=== PATIENT | male | born 1935 | race Caucasian/White ===

== ENCOUNTER → 2018-02-09 10:57 | Outpatient (BNVA) | payer MEDICARE, SELFPAY | PROVIDERS: PCP Emergency Medicine; Visit Provider Orthopaedic Surgery | DX: M17.11 Unilateral primary osteoarthritis, right knee (principal) | CPT/HCPCS: 20610; 99211; 99213; J1040 ==

== ENCOUNTER 2018-02-17 11:07 | Inpatient (IN) | payer MEDICARE, SELFPAY ==
[2018-02-17] VITALS (35 sets, daily range): BP systolic 91–132; BP diastolic 50–67; PULSE 50–96; RESP 2–32; TEMP 36.2–38.1; O2SAT 89–94
--- NOTE | 2018-02-17 11:37 | W.ED.GENAD ---
Discharge Plan Disposition Patient Disposition: [facility] INPATIENT Condition: Poor Discharge Details Chief Complaint: SOB Clinical Impression: Pneumonia, Hypoxia Reason For Visit: SEPSIS DUE TO CAP, LACTIC ACIDOSIS Admit Date/Time: 02/17/18 15:07 Admit Provider: Deann Lindsay Attending Provider: Deann Lindsay Primary Care Provider: nEzo Sparks ED Provider: Mary Arnold Discharge Data Discharge Date/Time-TO BE ENTERED AT DEPARTURE: 02/17/18 16:39 Medical Decision Making Patient is a 82-year-old male presenting today with chief complaint of cough and shortness of breath. Patient has history of NM with stent placement. He is not currently anticoagulated. History also significant for hypertension, hyperlipidemia, diabetes. Reports that he is been ill for the past 2 weeks. Endorses cough, particularly after laying supine. States that whenever he goes from a laying to a standing position he begins bringing up green sputum. Denies any fevers. Was seen by his primary care who placed him on antibiotics, patient is unclear as to what antibiotic he was on recently. Is not any antibiotics currently. Denies any chest pain. Reports he feels short of breath but this is typically only with coughing. Feels that I am breathing deeper at baseline does not feel short of breath at baseline. Denies any GI upset. No nausea, vomiting or diarrhea. Endorses a large amount of congestion. No sinus pain. Denies any ear pain. Denies any pain radiating to his back. On exam, she sounds wheezy and has crackles in the left lower lobe. Patient is noted to be tachycardic at 96, pulse is 93% on room air. Patient is afebrile. Plan to obtain a cardiac evaluation, chest x-ray. Will obtain a d-dimer as patient is having coughing and short of breath and is known to be tachycardic and hypoxic. Nursing staff found the antibiotic patient was on was amoxicillin. EKG was reviewed by Dr. Montague. Unchanged from previous. No ischemic changes noted Laboratory evaluation noted for elevated lactate of 2.8. Patient is currently receiving IV hydration. White count is over 28 with left shift. Potassium is low at 3.1, we replenish this at this time. Creatinine is 1.4 with a GFR of 46. D-dimer is 870. This is over the age adjusted limit for the patient. I discussed with him the risk/benefits of CT for PE protocol, particularly with his kidney function. Patient wished to move forward with imaging. We will continue to hydrate the patient while here Patient received 40 mg of p.o. potassium Chest x-ray reviewed by myself, notable for consolidation on the lateral view CT reviewed by radiologist. She contacted the department and advised that no pulmonary embolism was noted. However, patient is noted to have bilateral lower lobe pneumonia. 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 She recommended MRI versus biopsy. Advised that this appears simple. This may be followed up with primary care Patient is oxygen is now 88%. Nursing staff placed the patient on 2 L. Plan for admission. Will obtain blood cultures and begin the patient on ceftriaxone and azithromycin IV Consulted with hospitalist who agrees to admission for hypoxia and pneumonia. I did advise on the patient incidental finding which she will have the patient follow-up with at the time of discharge. This plan with the patient who is in agreement HPI General Mode of arrival: ambulatory. Date/Time Provider Initiated Documentation: 02/17/18 11:16. Limitations to Documentation: no limitations. Information obtained by: patient. History of Present Illness 82 year old M presents to the emergency department with the chief complaint of cough, described as moderate (patient denies any pain), Patient started experiencing this week(s) (2) and it has been constant. No relieving factors improve symptom(s), Movement worsens symptoms (coughing worse with exacerbation) . Patient notes fever/chills (has had chills at home) and shortness of breath (associates with cough); denies chest pain, cough, diaphoresis, headaches, loss of appetite, nausea/vomiting, rash and syncope. Patient did receive the following treatments prior to arrival, other (course of antibiotics) Related Data Home Medications Medication Instructions Recorded Confirmed acetaminophen [Tylenol Arthritis] 1 tab PO .4 OR 5 TIMES A DAY PRN 09/02/12 02/17/18 tab-cap aspirin [Ecotrin] 325 mg PO .QOD HS tab-cap 09/02/12 02/17/18 cranberry fruit concentrate 450 mg PO DAILY 09/02/12 02/17/18 garlic 1 cap PO DAILY 09/02/12 02/17/18 molmzyvekkm-qapqmtkmx-thq C-Mn 1 tab PO DAILY 09/02/12 02/17/18 triamcinolone acetonide 1 pedro pablo TOPICAL BID PRN #3 script 09/02/12 02/17/18 blood sugar diagnostic [Onetouch #100 strip 01/20/17 02/17/18 Ultra Test Strips] losartan-hydrochlorothiazide 1 tab-cap PO DAILY #90 tab-cap 04/21/17 02/17/18 [Hyzaar 100-25 Tablet] vitamin D40-baxzc acid 1 ea PO DAILY #90 tab 10/21/17 02/17/18 cetirizine 10 mg tablet 10 mg PO DAILY PRN tab-cap 01/06/18 02/17/18 metformin 1,000 mg tablet 1,000 mg PO BID tab-cap 01/06/18 02/17/18 pseudoephedrine-guaifenesin ER 120 1 tab PO PRN PRN tab 01/06/18 02/17/18 mg-1,200 mg tab,extend release 12hr atorvastatin 20 mg tablet 20 mg PO DAILY 01/08/18 02/17/18 metoprolol succinate ER 100 mg 100 mg PO HS dose pk 01/08/18 02/17/18 capsule sprinkle, ext. release 24 hr Previous Rx's Medication Instructions Recorded blood sugar diagnostic [Onetouch #100 strip 01/20/17 Ultra Test Strips] losartan-hydrochlorothiazide 1 tab-cap PO DAILY #90 tab-cap 04/21/17 [Hyzaar 100-25 Tablet] vitamin Y10-vaayi acid 1 ea PO DAILY #90 tab 10/21/17 Allergies Allergy/AdvReac Type Severity Reaction Status Date / Time Sulfa (Sulfonamide Allergy Intermediate SKIN RASH Verified 02/17/18 11:17 Antibiotics) miconazole Allergy Mild RASH Verified 02/17/18 11:17 bacitracin Allergy Unknown SKIN RASH Verified 02/17/18 11:17 gramicidin D Allergy Unknown SKIN RASH Verified 02/17/18 11:17 neomycin Allergy Unknown SKIN RASH Verified 02/17/18 11:17 polymyxin B Allergy Unknown SKIN RASH Verified 02/17/18 11:17 General Stated Complaint: SOB TANYA: 3 Review of Systems Constitutional Reports as per HPI Eyes Denies eye discharge ENT Denies dizziness, Denies otalgia, Denies lip swelling, Denies epistaxis, Reports nasal congestion, Reports nasal discharge, Reports post nasal drip, Denies sinus pain, Denies sinus pressure and Reports sore throat Cardiovascular Denies chest pain, Denies palpitations and Reports dyspnea (associates with cough) Respiratory Reports as per HPI, Reports chest congestion, Reports cough, Denies pain on inspiration, Denies pain with cough, Reports dyspnea (associates with cough), Denies stridor and Denies wheezing Gastrointestinal Denies abdominal pain, Denies nausea and Denies vomiting Integumentary/Breasts Denies rash Neurologic Denies dizziness Endocrine Denies palpitations Allergic/Immunologic Denies lip swelling and Denies wheezing [facility] Social History Smoking/Tobacco Use Status: Former Tobacco Use Surgical History Appendectomy Colonoscopy - MAC Fracture, Open Treatment MASTOID INCISION 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) Exam Const General: cooperative, healthy appearing, comfortable, no acute distress, well developed and well groomed Nutritional Appearance: average body habitus and well nourished Orientation: alert and awake [facility] Head: normal to inspection, normocephalic and atraumatic Ears: hearing grossly normal bilaterally, external ears normal and TM's normal bilaterally General nose exam: external nose normal and nares normal Face and sinus: normal facial exam, sinuses nontender and face symmetric Mouth: lip normal, tongue normal, mucous membranes dry (patietn appears dry on exam), no muffled voice and no trismus Throat: posterior oropharynx normal, tonsils normal and uvula midline Eyes General: appearance normal, both eyes and all related structures Neck Neck: normal visual inspection and no lymphadenopathy Resp Effort & Inspection: normal respiratory effort, able to speak in complete sentences and no respiratory distress Auscultation: crackles on the left in the lower lung boothe, lung sounds not diminished, no rhonchi and wheezes expiratory wheezes and scattered wheezes Cardio Rate: regular rate Rhythm: regular rhythm Heart Sounds: S1 normal and S2 normal GI Inspection: normal to inspection Palpation: soft and nontender Auscultation: normal bowel sounds Skin General skin exam: no rashes or lesions noted Lesions: no lesions Rashes: no rashes Neuro General: alert and awake Cognition: normal cognition Speech: speech normal Gait: normal gait Extrem General: normal to inspection, no pedal edema, no calf tenderness and normal gait Psych Appearance: grossly normal and well kempt Mental Status: mental status grossly normal Speech and Movement: speech and movement normal Mood: congruent mood Course Vital Signs Temperature 37 C 02/17/18 11:13 Pulse 96 H 02/17/18 11:13 Respiratory Rate 16 02/17/18 11:13 Blood Pressure 132/61 02/17/18 11:13 Pulse Oximetry 92 L 02/17/18 11:13 Temperature 37 C 02/17/18 11:13 Temperature Source Skin 02/17/18 11:13 Pulse 96 H 02/17/18 11:13 Respiratory Rate 16 02/17/18 11:13 Respiratory Effort 02/17/18 11:13 Blood Pressure 132/61 02/17/18 11:13 Blood Pressure Position Sitting 02/17/18 11:13 Pulse Oximetry 92 L 02/17/18 11:13 Oxygen Delivery Method Room Air 02/17/18 11:13 Oxygen Flow Rate 0 02/17/18 11:13 Pain Level 0 02/17/18 11:13
--- NOTE | 2018-02-17 11:43 | ED.GENADUL_ITS ---
Discharge Plan Disposition Patient Disposition: [facility] INPATIENT Condition: Poor Discharge Details Chief Complaint: SOB Clinical Impression: Pneumonia, Hypoxia Reason For Visit: SEPSIS DUE TO CAP, LACTIC ACIDOSIS Admit Date/Time: 02/17/18 15:07 Admit Provider: Deann Lindsay Attending Provider: Deann Lindsay Primary Care Provider: Enzo Sparks ED Provider: Mary Arnold Discharge Data Discharge Date/Time-TO BE ENTERED AT DEPARTURE: 02/17/18 16:39 Medical Decision Making Patient is a 82-year-old male presenting today with chief complaint of cough and shortness of breath. Patient has history of [place] with stent placement. He is not currently anticoagulated. History also significant for hypertension, hyperlipidemia, diabetes. Reports that he is been ill for the past 2 weeks. Endorses cough, particularly after laying supine. States that whenever he goes from a laying to a standing position he begins bringing up green sputum. Denies any fevers. Was seen by his primary care who placed him on antibiotics, patient is unclear as to what antibiotic he was on recently. Is not any antibiotics currently. Denies any chest pain. Reports he feels short of breath but this is typically only with coughing. Feels that I am breathing deeper at baseline does not feel short of breath at baseline. Denies any GI upset. No nausea, vomiting or diarrhea. Endorses a large amount of congestion. No sinus pain. Denies any ear pain. Denies any pain radiating to his back. On exam, she sounds wheezy and has crackles in the left lower lobe. Patient is noted to be tachycardic at 96, pulse is 93% on room air. Patient is afebrile. Plan to obtain a cardiac evaluation, chest x-ray. Will obtain a d- dimer as patient is having coughing and short of breath and is known to be tachycardic and hypoxic. Nursing staff found the antibiotic patient was on was amoxicillin. EKG was reviewed by Dr. Montague. Unchanged from previous. No ischemic changes noted Laboratory evaluation noted for elevated lactate of 2.8. Patient is currently receiving IV hydration. White count is over 28 with left shift. Potassium is low at 3.1, we replenish this at this time. Creatinine is 1.4 with a GFR of 46. D-dimer is 870. This is over the age adjusted limit for the patient. I discussed with him the risk/benefits of CT for PE protocol, particularly with his kidney function. Patient wished to move forward with imaging. We will continue to hydrate the patient while here Patient received 40 mg of p.o. potassium Chest x-ray reviewed by myself, notable for consolidation on the lateral view CT reviewed by radiologist. She contacted the department and advised that no pulmonary embolism was noted. However, patient is noted to have bilateral lower lobe pneumonia. 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 She recommended MRI versus biopsy. Advised that this appears simple. This may be followed up with primary care Patient is oxygen is now 88%. Nursing staff placed the patient on 2 L. Plan for admission. Will obtain blood cultures and begin the patient on ceftriaxone and azithromycin IV Consulted with hospitalist who agrees to admission for hypoxia and pneumonia. I did advise on the patient incidental finding which she will have the patient follow-up with at the time of discharge. This plan with the patient who is in agreement HPI General Mode of arrival: ambulatory . Date/Time Provider Initiated Documentation: 02/17/18 11:16 . Limitations to Documentation: no limitations . Information obtained by: patient . History of Present Illness 82 year old M presents to the emergency department with the chief complaint of cough, described as moderate (patient denies any pain), Patient started experiencing this week(s) (2) and it has been constant. No relieving factors improve symptom(s), Movement worsens symptoms (coughing worse with exacerbation) . Patient notes fever/chills (has had chills at home) and shortness of breath (associates with cough); denies chest pain, cough, diaphoresis, headaches, loss of appetite, nausea/vomiting, rash and syncope. Patient did receive the following treatments prior to arrival, other (course of antibiotics) Related Data Home Medications Medication Instructions Recorded Confirmed acetaminophen [Tylenol Arthritis] 1 tab PO .4 OR 5 TIMES A DAY PRN 09/02/12 tab-cap aspirin [Ecotrin] 325 mg PO .QOD HS tab-cap 09/02/12 02/17/18 cranberry fruit concentrate 450 mg PO DAILY 09/02/12 02/17/18 garlic 1 cap PO DAILY 09/02/12 02/17/18 ocwlmujskgk-guclymvwt-yej C-Mn 1 tab PO DAILY 09/02/12 02/17/18 triamcinolone acetonide 1 pedro pablo TOPICAL BID PRN #3 script 09/02/12 02/17/18 blood sugar diagnostic [Onetouch #100 strip 01/20/17 02/17/18 Ultra Test Strips] losartan-hydrochlorothiazide 1 tab-cap PO DAILY #90 tab-cap 04/21/17 02/17/18 [Hyzaar 100-25 Tablet] vitamin W21-yeksq acid 1 ea PO DAILY #90 tab 10/21/17 02/17/18 cetirizine 10 mg tablet 10 mg PO DAILY PRN tab-cap 01/06/18 02/17/18 metformin 1,000 mg tablet 1,000 mg PO BID tab-cap 01/06/18 02/17/18 pseudoephedrine-guaifenesin ER 120 1 tab PO PRN PRN tab 01/06/18 02/17/18 mg-1,200 mg tab,extend release 12hr atorvastatin 20 mg tablet 20 mg PO DAILY 01/08/18 02/17/18 metoprolol succinate ER 100 mg 100 mg PO HS dose pk 01/08/18 02/17/18 capsule sprinkle, ext. release 24 hr Previous Rx's Medication Instructions Recorded blood sugar diagnostic [Onetouch #100 strip 01/20/17 Ultra Test Strips] losartan-hydrochlorothiazide 1 tab-cap PO DAILY #90 tab-cap 04/21/17 [Hyzaar 100-25 Tablet] vitamin Q51-wkmum acid 1 ea PO DAILY #90 tab 10/21/17 Allergies Allergy/AdvReac Type Severity Reaction Status Date / Time Sulfa (Sulfonamide Allergy Intermediate SKIN RASH Verified 02/17/18 11:17 Antibiotics) miconazole Allergy Mild RASH Verified 02/17/18 11:17 bacitracin Allergy Unknown SKIN RASH Verified 02/17/18 11:17 gramicidin D Allergy Unknown SKIN RASH Verified 02/17/18 11:17 neomycin Allergy Unknown SKIN RASH Verified 02/17/18 11:17 polymyxin B Allergy Unknown SKIN RASH Verified 02/17/18 11:17 General Stated Complaint: SOB TANYA: 3 Review of Systems Constitutional Reports as per HPI Eyes Denies eye discharge ENT Denies dizziness, Denies otalgia, Denies lip swelling, Denies epistaxis, Reports nasal congestion, Reports nasal discharge, Reports post nasal drip, Denies sinus pain, Denies sinus pressure and Reports sore throat Cardiovascular Denies chest pain, Denies palpitations and Reports dyspnea (associates with cough) Respiratory Reports as per HPI, Reports chest congestion, Reports cough, Denies pain on inspiration, Denies pain with cough, Reports dyspnea (associates with cough), Denies stridor and Denies wheezing Gastrointestinal Denies abdominal pain, Denies nausea and Denies vomiting Integumentary/Breasts Denies rash Neurologic Denies dizziness Endocrine Denies palpitations Allergic/Immunologic Denies lip swelling and Denies wheezing [facility] Social History Smoking/Tobacco Use Status: Former Tobacco Use Surgical History Appendectomy Colonoscopy - MAC Fracture, Open Treatment MASTOID INCISION 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) Exam Const General: cooperative, healthy appearing, comfortable, no acute distress, well developed and well groomed Nutritional Appearance: average body habitus and well nourished Orientation: alert and awake [facility] Head: normal to inspection, normocephalic and atraumatic Ears: hearing grossly normal bilaterally, external ears normal and TM's normal bilaterally General nose exam: external nose normal and nares normal Face and sinus: normal facial exam, sinuses nontender and face symmetric Mouth: lip normal, tongue normal, mucous membranes dry (patietn appears dry on exam), no muffled voice and no trismus Throat: posterior oropharynx normal, tonsils normal and uvula midline Eyes General: appearance normal, both eyes and all related structures Neck Neck: normal visual inspection and no lymphadenopathy Resp Effort & Inspection: normal respiratory effort, able to speak in complete sentences and no respiratory distress Auscultation: crackles on the left in the lower lung boothe, lung sounds not diminished, no rhonchi and wheezes expiratory wheezes and scattered wheezes Cardio Rate: regular rate Rhythm: regular rhythm Heart Sounds: S1 normal and S2 normal GI Inspection: normal to inspection Palpation: soft and nontender Auscultation: normal bowel sounds Skin General skin exam: no rashes or lesions noted Lesions: no lesions Rashes: no rashes Neuro General: alert and awake Cognition: normal cognition Speech: speech normal Gait: normal gait Extrem General: normal to inspection, no pedal edema, no calf tenderness and normal gait Psych Appearance: grossly normal and well kempt Mental Status: mental status grossly normal Speech and Movement: speech and movement normal Mood: congruent mood Course Vital Signs Temperature 37 C 02/17/18 11:13 Pulse 96 H 02/17/18 11:13 Respiratory Rate 16 02/17/18 11:13 Blood Pressure 132/61 02/17/18 11:13 Pulse Oximetry 92 L 02/17/18 11:13 Temperature 37 C 02/17/18 11:13 Temperature Source Skin 02/17/18 11:13 Pulse 96 H 02/17/18 11:13 Respiratory Rate 16 02/17/18 11:13 Respiratory Effort 02/17/18 11:13 Blood Pressure 132/61 02/17/18 11:13 Blood Pressure Position Sitting 02/17/18 11:13 Pulse Oximetry 92 L 02/17/18 11:13 Oxygen Delivery Method Room Air 02/17/18 11:13 Oxygen Flow Rate 0 02/17/18 11:13 Pain Level 0 02/17/18 11:13
[2018-02-17] MEDS: Albuterol/Ipratropium 3 ML UPD VIAL UPD ×3 (12:00→23:51)
[2018-02-17 12:02] LABS: Lactate-non-spesis 2.8 mmol/L (0.6-1.4)
[2018-02-17 12:03] LABS: Abs Immature Grans 0.19 k/cumm (0.0-0.09); Absolute Basophil Count 0.02 k/cumm (0.0-0.2); Basophils % 0.1; HCT 40.8 % (40.0-50.0); HGB 13.2 g/dL (13.5-17.5); Immature Grans % 0.8; Lymphocytes % 3.4; Mean Corp. HGB Concentration 32.4 g/dL (32.0-36.0); Mean Corpuscular Hemoglobin 28.1 pg (27.0-33.0); Mean Platelet Volume 10.3 fL (8.0-11.0); Monocytes % 3.7; Platelet Count 356 x1000/uL (130-400); RBC 4.69 m/cumm (4.50-6.00); RBC Distribution Width 13.5 % (11.8-14.1); White Blood Cell Count 22.72 k/cumm (4.4-10.8)
[2018-02-17 12:07] LABS: Absolute Lymphocyte Count 0.77 k/cumm (1.2-3.4); Absolute Monocyte Count 0.84 k/cumm (0.11-0.7)
[2018-02-17 12:22] LABS: Diff Comment Agrees w/ Instrument; RBC Morphology Normal
--- NOTE | 2018-02-17 12:24 | DI.RAD_ITS ---
SYMPTOM/DIAGNOSIS: COUGH, SOB PA AND LATERAL CHEST: Comparison is made with 05/19/17. The heart is enlarged, unchanged. The aorta is again noted to be tortuous. There is now a posterior infiltrate seen at the right lower lobe. Pleural calcifications are again noted. IMPRESSION: Right lower lobe pneumonia.
[2018-02-17 12:25] LABS: ALT 45 U/L (12-78); AST 20 U/L (15-37); Albumin 2.5 g/dL (3.4-5.0); Alkaline Phosphatase 127 U/L (46-116); Anion Gap 14.3 mmol/L (3-11); BUN 25 mg/dL (7-18); CO2 26.7 mmol/L (21.0-32.0); CREATININE 1.46 mg/dL (0.70-1.30); Calcium 10.3 mg/dL (8.5-10.1); Chloride 95 mmol/L (98-107); Estimated GFR 46.23 (mL/min/1.73m2); Glucose 160 mg/dL (70-100); Magnesium 1.8 mg/dL (1.8-2.4); NT-proBNP 679 pg/mL; Potassium 3.1 mmol/L (3.5-5.1); Sodium 136 mmol/L (136-145); Total Protein 7.7 g/dL (6.4-8.2)
[2018-02-17 12:26] LABS: Troponin I < 0.02 ng/mL (0.00-0.06)
[2018-02-17 12:33] LABS: D-Dimer 873 ng/mlFEU (<500)
[2018-02-17] MEDS: Normal Saline 1,000 ML 250 ML IV (12:45)
[2018-02-17] MEDS: Potassium Chloride 20 MEQ TABCR 40 MEQ PO (13:56)
--- NOTE | 2018-02-17 14:46 | DI.CT_ITS ---
SYMPTOMS/DIAGNOSIS: SHORTNESS OF BREATH, ELEVATED D DIMER CHEST CT FOR PULMONARY EMBOLI: CT angiography was performed with multi slice acquisition and multi planar and 3D reconstruction. Comparison is made with chest x-ray performed earlier the same day. The exam is limited by respiratory motion and quantum model. The motion is greatest at the lung bases. There are bibasilar infiltrates, right greater than left. Calcified pleural plaques are seen. There is no evidence of aortic dissection. There is left atrial and left ventricular enlargement. Coronary artery calcifications and aortic calcifications are present. There is a small hiatal hernia. The spleen is normal in size. The visualized portions of the liver are unremarkable. There is a 4 cm cyst at the superior body of the pancreas. The adrenals are unremarkable. IMPRESSION: No evidence of pulmonary emboli. Bilateral pneumonia is demonstrated. 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 A low grade malignancy can not be excluded. Biopsy could be considered if there is no previous imaging.
[2018-02-17] MEDS: Omnipaque 350 MG/ML 100 ML BTL IJ (14:48)
[2018-02-17] MEDS: AZITHROMYCIN 500 MG in Normal Saline 250 ML 250 MG IVPB (15:00)
[2018-02-17 16:11] LABS: Lactate-non-spesis 1.2 mmol/L (0.6-1.4)
[2018-02-17] MEDS: Acetaminophen 325 MG TAB PO (17:01)
[2018-02-17] MEDS: Benzonatate 100 MG CAP PO (17:46)
[2018-02-17] MEDS: Enoxaparin 30 MG/0.3 ML SYR SC (17:46)
--- NOTE | 2018-02-17 18:08 | W.PM.HP.N ---
Date of service: 02/17/18 Time of Service: 18:08 Assessment and Plan (1) Sepsis: Current visit: Yes Status: Acute Due to CAP. Continue azithromycin, ceftriaxone, IVF. Await blood cx results. Obtain sputum cx. (2) Community acquired pneumonia: Current visit: Yes Status: Acute As above (3) Hypoxia: Current visit: Yes Status: Acute Treat pneumonia. Nebs scheduled and prn. Wean O2 as toelrated (4) Lactic acidosis: Current visit: Yes Status: Resolved In setting of sepsis, dehydration, hypoxia - less likely due to metformin use. Treat sepsis. Hydrate intravenously. (5) Essential hypertension: Current visit: Yes Status: Chronic Hold home losartan - HCTZ in light of WESLEY/dehydration. (6) Diabetes mellitus: Current visit: Yes Status: Chronic with neuropathy. Hold metformin. Cover with corrective insulin while in the hospital. (7) Coronary atherosclerosis of washoe coronary vessel: Current visit: Yes Status: Chronic Stable. No evidence of ACS. No change in tx. (8) Thrush: Current visit: Yes Status: Acute Nystatin Swish and swallow (9) WESLEY (acute kidney injury): Current visit: Yes Status: Acute Hold Losartan/HCTZ. IVF. Monitor closely as did receive IV contrast. (10) Discharge planning issues: Current visit: Yes Status: Acute PT/OT consulted. Doubt that he will require SNF. Full Code. (11) DVT prophylaxis: Current visit: Yes Status: Acute Lovenox + SCD's. History of Present Illness Chief Complaint: I have pneumonia in my lungs! Narrative: Mr Selby is an 82 year old male with PMHx of CAD s/p stent, NIDDM2, hypertension, hyperlipidemia, who states he was sent to [facility] ED today by his PCP because he has pneumonia. Everything started with a sore throat about 2 weeks ago. Then the patient developed a cough productive of yellow/green sputum. He thought it was just a cold, but it wasn't going away, so he called his PCP. He was unable to see his PCP in the office, but he did prescribe a 5 day course of amoxicillin. The patient thinks it helped some while he was taking it, but that his symptoms got worse as soon as he stopped taking it. He feels short of breath. He does not think he had fevers at home. Denies any ches tpain. He states that his tongue has been white for at least 10 days. In the ER, the patient was found to be tachycardic with O2 sat of 89%. He spiked a temperature of 38.1 C. CTA of his chest revealed a bilateral pneumonia and a 4 cm pancreatic cyst. Of note, the patient does not know his family history because he was adopted. Review of Systems Review of Systems 12 systems reviewed. Pertinent positives and negatives are as per HPI. Additionally, the patient reports feeling stiffness in his joints. 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/11/14) Coronary atherosclerosis of washoe coronary vessel (Chronic) Social History Smoking/Tobacco Use Status: Former Tobacco Use Surgical History Appendectomy Colonoscopy - MAC Fracture, Open Treatment MASTOID INCISION 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) Meds Home Medications Medication Instructions Recorded Confirmed Type acetaminophen [Tylenol Arthritis] 1 tab PO .4 OR 5 TIMES A DAY PRN 09/02/12 02/17/18 History tab-cap aspirin [Ecotrin] 325 mg PO .QOD HS tab-cap 09/02/12 02/17/18 History cranberry fruit concentrate 450 mg PO DAILY 09/02/12 02/17/18 History garlic 1 cap PO DAILY 09/02/12 02/17/18 History [id number]-[id number]-etj C-Mn 1 tab PO DAILY 09/02/12 02/17/18 History triamcinolone acetonide 1 pedro pablo TOPICAL BID PRN #3 script 09/02/12 02/17/18 History blood sugar diagnostic [Onetouch #100 strip 01/20/17 02/17/18 Rx Ultra Test Strips] losartan-hydrochlorothiazide 1 tab-cap PO DAILY #90 tab-cap 04/21/17 02/17/18 Rx [Hyzaar 100-25 Tablet] vitamin [id number] acid 1 ea PO DAILY #90 tab 10/21/17 02/17/18 Rx cetirizine 10 mg tablet 10 mg PO DAILY PRN tab-cap 01/06/18 02/17/18 History metformin 1,000 mg tablet 1,000 mg PO BID tab-cap 01/06/18 02/17/18 History pseudoephedrine-guaifenesin ER 120 1 tab PO PRN PRN tab 01/06/18 02/17/18 History mg-1,200 mg tab,extend release 12hr atorvastatin 20 mg tablet 20 mg PO DAILY 01/08/18 02/17/18 History metoprolol succinate ER 100 mg 100 mg PO HS dose pk 01/08/18 02/17/18 History capsule sprinkle, ext. release 24 hr Allergies Allergy/AdvReac Type Severity Reaction Status Date / Time Sulfa (Sulfonamide Allergy Intermediate SKIN RASH Verified 02/17/18 11:17 Antibiotics) miconazole Allergy Mild RASH Verified 02/17/18 11:17 bacitracin Allergy Unknown SKIN RASH Verified 02/17/18 11:17 gramicidin D Allergy Unknown SKIN RASH Verified 02/17/18 11:17 neomycin Allergy Unknown SKIN RASH Verified 02/17/18 11:17 polymyxin B Allergy Unknown SKIN RASH Verified 02/17/18 11:17 Exam Narrative Exam Narrative: General: Very pleasant elderly male, sitting comfortably in a chair, not in acute distress, speaking in full sentences, coughing Neurological: A&Ox3, difficulty hearing, no focal deficits Psychiatric: appropriate speech pattern/content Skin: no bruises/rashes; decreased skin turgor HEENT: Atraumatic, normocephalic. EOMI, Dry MM, white film over tongue, no submandibular or cervical lymphadenopathy, no goiter or JVD Cardiovascular: RRR, no murmurs, rubs, or gallops Lungs: Rales at B bases; moist cough; coarse breath sounds B Gastrointestinal: abdomen soft, nontender, nondistended Extremities: no edema, clubbing, cyanosis of BLE's. Results Imaging Additional studies: EKG: HR 76, NSR with occasional PVC's, RBBB (old) Imaging Studies: CXR: Right lower lobe pneumonia. CTA chest: No evidence of pulmonary emboli. Bilateral pneumonia is demonstrated. 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 A low grade malignancy can not be excluded. Biopsy could be considered if there is no previous imaging. Labs : 02/17/18 11:55 02/17/18 11:55 Laboratory Results - last 24 hr 02/17/18 02/17/18 02/17/18 11:55 11:55 11:55 WBC 22.72 H RBC 4.69 Hgb 13.2 L Hct 40.8 MCV 87.0 MCH 28.1 MCHC 32.4 RDW 13.5 Plt Count 356 MPV 10.3 Immature Gran % 0.8 Neutrophils % 92.0 Lymphocytes % 3.4 Monocytes % 3.7 Eosinophils % 0.0 Basophils % 0.1 Absolute Neutrophils 20.90 H Absolute Lymphocytes 0.77 L Absolute Monocytes 0.84 H Absolute Eosinophils 0.00 Absolute Basophils 0.02 Differential Comment Agrees w/ instrument RBC Morphology Normal D-Dimer Sodium 136 Potassium 3.1 L Chloride 95 L Carbon Dioxide 26.7 Anion Gap 14.3 H BUN 25 H Creatinine 1.46 H Estimated GFR/1.73 m2 46.23 Glucose 160 H Lactate 2.8 H Calcium 10.3 H Magnesium 1.8 Total Bilirubin 1.0 AST 20 ALT 45 Alkaline Phosphatase 127 H Troponin I < 0.02 NT-Pro-B Natriuret Pep 679 H Total Protein 7.7 Albumin 2.5 L 02/17/18 02/17/18 11:55 16:07 WBC RBC Hgb Hct MCV MCH MCHC RDW Plt Count MPV Immature Gran % Neutrophils % Lymphocytes % Monocytes % Eosinophils % Basophils % Absolute Neutrophils Absolute Lymphocytes Absolute Monocytes Absolute Eosinophils Absolute Basophils Differential Comment RBC Morphology D-Dimer 873 H Sodium Potassium Chloride Carbon Dioxide Anion Gap BUN Creatinine Estimated GFR/1.73 m2 Glucose Lactate 1.2 Calcium Magnesium Total Bilirubin AST ALT Alkaline Phosphatase Troponin I NT-Pro-B Natriuret Pep Total Protein Albumin Last Vital Signs Temp 38.1 C H 02/17/18 17:06 Pulse 89 02/17/18 17:06 Resp 19 02/17/18 17:06 BP 111/60 02/17/18 17:06 Pulse Ox 91 L 02/17/18 17:06
[2018-02-17] MEDS: Normal Saline 1,000 ML 75 ML IV (18:27)
[2018-02-17] MEDS: guaiFENesin 600 MG TABCR PO (19:53)
[2018-02-17] MEDS: Insulin Aspart 300 UNITS/3 ML PEN SC (21:27)
[2018-02-17] MEDS: Aspirin E.C. 325 MG TABEC PO (21:30)
[2018-02-17] MEDS: Nystatin 500000 UNITS/5 ML SUSP 5ML CUP PO (21:30)
[2018-02-18] VITALS (10 sets, daily range): BP systolic 115–140; BP diastolic 54–74; PULSE 61–90; RESP 5–19; TEMP 36.2–37.7; O2SAT 91–97
[2018-02-18] MEDS: Albuterol/Ipratropium 3 ML UPD VIAL UPD ×4 (05:55→23:20)
[2018-02-18] MEDS: Nystatin 500000 UNITS/5 ML SUSP 5ML CUP PO ×5 (05:55→21:29)
[2018-02-18] MEDS: Normal Saline 1,000 ML 75 ML IV (06:13)
[2018-02-18 07:23] LABS: Abs Immature Grans 0.18 k/cumm (0.0-0.09); Absolute Lymphocyte Count 1.47 k/cumm (1.2-3.4); Basophils % 0.1; Eosinophils % 0.3; HCT 34.4 % (40.0-50.0); Immature Grans % 1.2; Lymphocytes % 10.2; Mean Corpuscular Hemoglobin 28.1 pg (27.0-33.0); Mean Corpuscular Volume 87.8 fL (80-95); Mean Platelet Volume 10.4 fL (8.0-11.0); Monocytes % 5.8; Neutrophils % 82.4; Platelet Count 301 x1000/uL (130-400); RBC 3.92 m/cumm (4.50-6.00); RBC Distribution Width 13.5 % (11.8-14.1); White Blood Cell Count 14.41 k/cumm (4.4-10.8)
[2018-02-18 07:24] LABS: Absolute Basophil Count 0.01 k/cumm (0.0-0.2); Absolute Eosinophil Count 0.04 k/cumm (0.0-0.7); Absolute Monocyte Count 0.84 k/cumm (0.11-0.7); Absolute Neutrophil Count 11.87 k/cumm (1.2-6.7)
[2018-02-18 07:44] LABS: Anion Gap 9.8 mmol/L (3-11); BUN 23 mg/dL (7-18); CO2 27.2 mmol/L (21.0-32.0); CREATININE 1.13 mg/dL (0.70-1.30); Calcium 8.9 mg/dL (8.5-10.1); Chloride 101 mmol/L (98-107); Glucose 131 mg/dL (70-100); Magnesium 1.8 mg/dL (1.8-2.4); Sodium 138 mmol/L (136-145)
[2018-02-18 07:51] LABS: Potassium 2.9 mmol/L (3.5-5.1)
[2018-02-18] MEDS: guaiFENesin 600 MG TABCR PO ×2 (08:54→19:56)
[2018-02-18] MEDS: Atorvastatin 20 MG TAB PO (08:54)
[2018-02-18] MEDS: Acetaminophen 325 MG TAB PO ×2 (09:05→19:56)
--- NOTE | 2018-02-18 09:59 | PT.INIE ---
Date of service: 02/18/18 Time of Service: 10:00 PT Notes Date: 02/18/18 Referring Doctor: Deann Lindsay PT Orders: PT consult: eval and treat. Precautions: standard Patient Profile/Admitting Diagnosis: Pt. is an 82 year old male admitted with pneumonia PMHX: s/p left total knee replacement by Dr. Chang on 02/27/16, peripheral neuropathy bilateral feet, right coronary artery stenting, chronic back pain, hypertension , diabetes mellitus Social History/Home Situation: Pt. lives alone in a home, 2 stairs with rail to enter, flat inside. Patient's baseline was independent with ADLs and gait with no assistive device. He has been doing independent gym program at [facility] [employer] Equipment owned/DME: FWW, single point cane, shower chair, grab bar in shower SUBJECTIVE: Pt. was sitting on edge of bed, states he has been weak the last 10 days but feels much better today. Stating he does not think he needs therapy services but agreeable to PT Consult. OBJECTIVE General Observation: IV right arm Mental Status: A&Ox3 Pain: no c/o BED MOBILITY/TRANSFERS: Supine-sit: independent Sit-stand: independent no device Bed-chair: independent no device Stand-sit: independent GAIT: independent no device 200ft, steady step through gait, no loss of balance. Pt up in chair after gait session completed. BALANCE: Static sitting: normal Dynamic Sitting: normal Static Standing: good Dynamic Standing: good [facility] Mobility Short Form: raw score 24 standardized score 61.14 CMS score 0% CMS modifier CH ASSESSMENT: Pt. is an 82 year old male admitted with pneumonia in setting of s/p left total knee replacement by Dr. Chang on 02/27/16, peripheral neuropathy bilateral feet, right coronary artery stenting, chronic back pain. Pt presents at time of evaluation at baseline level of independent function, independent with transfers and independent gait with no assistive device. Pt is not in need of skilled therapy at this time and is ready to return to home setting when medically cleared. GOALS not applicable PLAN OF CARE/TREATMENT PLAN: PT eval only DISCHARGE RECOMMENDATIONS Home TREATMENT TIME/MINUTES/CODES 24 min IE 9:35 Caitlin Cardoso PT
--- NOTE | 2018-02-18 10:09 | IN_ITS ---
Date of service: 02/18/18 Time of Service: 10:00 PT Notes Date: 02/18/18 Referring Doctor: Deann Lindsay PT Orders: PT consult: eval and treat. Precautions: standard Patient Profile/Admitting Diagnosis: Pt. is an 82 year old male admitted with pneumonia PMHX: s/p left total knee replacement by Dr. Chang on 02/27/16, peripheral neuropathy bilateral feet, right coronary artery stenting, chronic back pain, hypertension , diabetes mellitus Social History/Home Situation: Pt. lives alone in a home, 2 stairs with rail to enter, flat inside. Patient's baseline was independent with ADLs and gait with no assistive device. He has been doing independent gym program at [employer] [employer] Equipment owned/DME: FWW, single point cane, shower chair, grab bar in shower SUBJECTIVE: Pt. was sitting on edge of bed, states he has been weak the last 10 days but feels much better today. Stating he does not think he needs therapy services but agreeable to PT Consult. OBJECTIVE General Observation: IV right arm Mental Status: A&Ox3 Pain: no c/o BED MOBILITY/TRANSFERS: Supine-sit: independent Sit-stand: independent no device Bed-chair: independent no device Stand-sit: independent GAIT: independent no device 200ft, steady step through gait, no loss of balance. Pt up in chair after gait session completed. BALANCE: Static sitting: normal Dynamic Sitting: normal Static Standing: good Dynamic Standing: good [facility] Mobility Short Form: raw score 24 standardized score 61.14 CMS score 0% CMS modifier CH ASSESSMENT: Pt. is an 82 year old male admitted with pneumonia in setting of s/ p left total knee replacement by Dr. Chang on 02/27/16, peripheral neuropathy bilateral feet, right coronary artery stenting, chronic back pain. Pt presents at time of evaluation at baseline level of independent function, independent with transfers and independent gait with no assistive device. Pt is not in need of skilled therapy at this time and is ready to return to home setting when medically cleared. GOALS not applicable PLAN OF CARE/TREATMENT PLAN: PT eval only DISCHARGE RECOMMENDATIONS Home TREATMENT TIME/MINUTES/CODES 24 min IE 9:35 Caitlin Cardoso PT
--- NOTE | 2018-02-18 10:28 | OT.INIE ---
Occupational Therapy Notes Inpatient Occupational Therapy Evaluation Date: 02/18/18 Referring Doctor:Deann Lindsay MD OT Orders: Deconditioning PATIENT PROFILE/ADMITTING DIAGNOSIS: Pt is an 82 year old male referred for OT consult for deconditioning from pneumonia. Past Medical History: s/p left total knee replacement by Dr. Chang on 02/27/16, peripheral neuropathy bilateral feet, right coronary artery stenting, chronic back pain, hypertension , diabetes mellitus Social History/Home Situation: Pt states that he lives alone in a private home. He has two stairs to enter with railing and a tub/shower combination. Pt reports that his home is relatively flat throughout the whole house. His baseline (I) in functional activities including ADLs/IADLs is (I). Pt has been performing the Wellness program at [facility], PT & [employer]. Equipment owned/DME: FWW, single point cane, shower chair, grab bar in shower SUBJECTIVE: Pt was sitting in chair when OT arrived. He is agreeable to OT consult. OBJECTIVE: General Observation: IV (R) UE Mental Status: A&Ox3 Pain: no c/o pain ROM: RUE WNL L UE WNL STRENGTH: RUE 5/5 throughout LUE 5/5 throughout SENSATION: Pt intact to light touch and sensation. BALANCE: Static sitting Normal Dynamic Sitting Normal Pt denies the need to perform ADL routine stating that he is (I) and does not think that he will need OT services. SPECIAL TESTS: Daily Activity Limitations Standardized Measure [facility] AM -PAC ?6 clicks? Daily Activity Inpatient Short Form: Raw score: 23 Standardized score: 51.12 CMS score: 15.86% CMS modifier: CI INFORMED CONSENT/EDUCATION: Pt instructed in purpose of OT Consult and plan of care. ASSESSMENT: Pt is an 82 year old male referred for deconditioning and admitted for pneumonia in setting of s/p left total knee replacement by Dr. Chang on 02/27/16, peripheral neuropathy bilateral feet, right coronary artery stenting, chronic back pain, hypertension , diabetes mellitus. He denies the need for OT services and is at baseline for (I) in ADLs. Pt does not need skilled OT services. Recommend that pt be discharged home when medically cleared. AMPAC score 23, CMS score 15.86% Patient is assessed as a Low [id number] complexity based on the following: History: See Above Examination: No functional impairments noted for ADL routine or functional activity tolerance. Presentation: Stable Decision Making: AMPAC score 23, CMS score 15.86% GOALS: N/A PLAN OF CARE/TREATMENT PLAN: OT Eval only DISCHARGE RECOMMENDATIONS Home when medically cleared. TREATMENT TIME/MINUTES/CODES 09:36, IE 11 min G Codes in the area of self- : washing oneself, toileting, dressing, eating and drinking, current status GO [id number] CI projected status GO [id number]. Discharge status GO [id number] BAsed on AMPAC score 23, CMS score 15.86%. Sandhya Dent, OTR/L
[2018-02-18] MEDS: Potassium Chloride 20 MEQ TABCR 40 MEQ PO ×2 (11:15→19:56)
--- NOTE | 2018-02-18 12:02 | PGE_ITS ---
Assessment and Plan (1) Sepsis: Current visit: Yes Status: Acute Resolved with treatment of pneumonia. Blood cultures pending. Sputum culture growing mixed gram-positive emerson. Continue treatment with ceftriaxone and azithromycin. (2) Community acquired pneumonia: Current visit: Yes Status: Acute Symptoms improving. Leukocytosis improved to 14.41 today from 22. Continue azithromycin and ceftriaxone. Continue nebulizer treatments scheduled and as needed. Continue to wean oxygen as tolerated. IV fluids have been discontinued as he is taking oral fluids well. Repeat CBC in the morning. (3) Thrush: Current visit: Yes Status: Acute Continue nystatin swish and swallow. (4) Diabetes mellitus: Current visit: Yes Status: Chronic Glucose on lab draw this morning at appropriate level. Continue to hold metformin while hospitalized. Continue short acting insulin per sliding scale. Continue to monitor blood sugars at before meals and at bedtime. (5) WESLEY (acute kidney injury): Current visit: Yes Status: Acute Improving, creatinine 1.13 this morning. BUN remains mildly elevated at 23. Continue to hold losartan and hydrochlorothiazide. Reassess kidney function in the morning. (6) Hypokalemia: Current visit: Yes Status: Acute Potassium low this morning at 2.9, he did receive supplementation. Reassess BMP in the morning. (7) DVT prophylaxis: Current visit: Yes Status: Acute Subcutaneous Lovenox. (8) Discharge planning issues: Current visit: Yes Status: Acute He is a full code. PT/OT have been consulted, however, he is very active with [employer] [facility] and outpatient physical therapy. He will not likely require SNF upon discharge. Consider home health services. This case was discussed with Dr. Lindsay who is in agreement. Subjective Interval history since last seen: Mr Selby is an 82 year old male with PMHx of CAD s/p stent, NIDDM2, hypertension, hyperlipidemia who is currently being treated for pneumonia with ceftriaxone and azithromycin. He feels better today, he is not short of breath, even with activity. He was able to ambulate in the gao without difficulty. He denies wheezing. He reports coughing less frequently, he is bringing up thick yellow to green sputum. He denies chest pain/pressure, or palpitations. He is able to eat and drink today , he has had a poor appetite for the last week or so. He denies any pain or swelling to his lower extremities. He denies any issues with bowel or bladder function. Exam Narrative Exam Narrative: General: He is a pleasant elderly male, sitting up in the chair, watching TV not in acute distress, speaking in full sentences without difficutly. Neurological: A&Ox3, no focal deficits Skin: no bruises/rashes, area of discoloration on mcbride of RLE. HEENT: Atraumatic, normocephalic. Pupils are equal and round, mucous membranes moist. Neck: Supple, no JVD or lymphadenopathy. Cardiovascular: RRR, no murmurs, rubs, or gallops Lungs: Respirations even and unlabored. Rales to bilateral bases, with expiratory wheezing noted. Infrequent productive cough noted. Gastrointestinal: abdomen soft, round, nontender, nondistended with normoactive bowel sounds. Extremities: no edema, clubbing, cyanosis of BLE's. Objective Objective Clinical Data: Abnormal lab results 02/17/18 02/17/18 02/17/18 Range/Units 11:55 11:55 11:55 WBC 22.72 H (4.4-10.8) k/cumm RBC (4.50-6.00) m/cumm Hgb 13.2 L (13.5-17.5) g/dL Hct (40.0-50.0) % Absolute Neutrophils 20.90 H (1.2-6.7) k/cumm Absolute Lymphocytes 0.77 L (1.2-3.4) k/cumm Absolute Monocytes 0.84 H (0.11-0.7) k/cumm D-Dimer (<500) ng/mlFEU Potassium 3.1 L (3.5-5.1) mmol/L Chloride 95 L (98-107) mmol/L Anion Gap 14.3 H (3-11) mmol/L BUN 25 H (7-18) mg/dL Creatinine 1.46 H (0.70-1.30) mg/dL Glucose 160 H (70-100) mg/dL Lactate 2.8 H (0.6-1.4) mmol/L Calcium 10.3 H (8.5-10.1) mg/dL Alkaline Phosphatase 127 H (46-116) U/L NT-Pro-B Natriuret Pep 679 H ( - 299) pg/mL Albumin 2.5 L (3.4-5.0) g/dL 02/17/18 02/18/18 02/18/18 Range/Units 11:55 06:38 06:38 WBC 14.41 H D (4.4-10.8) k/cumm RBC 3.92 L (4.50-6.00) m/cumm Hgb 11.0 L D (13.5-17.5) g/dL Hct 34.4 L (40.0-50.0) % Absolute Neutrophils 11.87 H (1.2-6.7) k/cumm Absolute Lymphocytes (1.2-3.4) k/cumm Absolute Monocytes 0.84 H (0.11-0.7) k/cumm D-Dimer 873 H (<500) ng/mlFEU Potassium 2.9 L* (3.5-5.1) mmol/L Chloride (98-107) mmol/L Anion Gap (3-11) mmol/L BUN 23 H (7-18) mg/dL Creatinine (0.70-1.30) mg/dL Glucose 131 H (70-100) mg/dL Lactate (0.6-1.4) mmol/L Calcium (8.5-10.1) mg/dL Alkaline Phosphatase (46-116) U/L NT-Pro-B Natriuret Pep ( - 299) pg/mL Albumin (3.4-5.0) g/dL Vital Signs Temperature 37.1 C 02/18/18 03:20 Temperature Source Tympanic 02/18/18 03:20 Pulse 77 02/18/18 05:55 Pulse Rhythm Irregular 02/18/18 08:30 Pulse 80 02/17/18 16:30 Respiratory Rate 17 02/18/18 03:20 Respiratory Effort Non-Labored 02/18/18 08:30 Respiratory Depth Shallow 02/18/18 08:30 Respiratory Pattern Normal 02/18/18 08:30 Blood Pressure 128/70 02/18/18 03:20 Blood Pressure Mean 71 02/17/18 16:16 Blood Pressure Position Sitting 02/17/18 11:13 Pulse Oximetry 92 L 02/18/18 05:55 Oxygen Delivery Method Nasal Cannula 02/18/18 05:55 Oxygen Flow Rate 4 02/18/18 05:55 Pain Level 0 02/18/18 09:05 Comment 02/18/18 03:20 Intake & Output 02/17/18 02/18/18 02/18/18 23:59 11:59 23:59 Intake Total 1300 / 1300 1040 / 1040 Output Total 1350 / 1350 1100 / 1100 Balance -50 / -50 -60 / -60 Weight 186 kg 85.7 kg Intake: IV 1300 / 1300 Oral 1040 / 1040 Output: Urine 1350 / 1350 1100 / 1100 Other: Urine Color Yellow Yellow Urine Appearance Clear Clear Urine Odor Normal Stool Size Moderate Stool Characteristics Formed Voiding Methods Toilet Urinal Laboratory Results WBC 14.41 k/cumm (4.4-10.8) H D 02/18/18 06:38 RBC 3.92 m/cumm (4.50-6.00) L 02/18/18 06:38 Hgb 11.0 g/dL (13.5-17.5) L D 02/18/18 06:38 Hct 34.4 % (40.0-50.0) L 02/18/18 06:38 MCV 87.8 fL (80-95) 02/18/18 06:38 MCH 28.1 pg (27.0-33.0) 02/18/18 06:38 MCHC 32.0 g/dL (32.0-36.0) 02/18/18 06:38 RDW 13.5 % (11.8-14.1) 02/18/18 06:38 Plt Count 301 x1000/uL (130-400) 02/18/18 06:38 MPV 10.4 fL (8.0-11.0) 02/18/18 06:38 Immature Gran % 1.2 02/18/18 06:38 Neutrophils % 82.4 02/18/18 06:38 Lymphocytes % 10.2 02/18/18 06:38 Monocytes % 5.8 02/18/18 06:38 Eosinophils % 0.3 02/18/18 06:38 Basophils % 0.1 02/18/18 06:38 Absolute Neutrophils 11.87 k/cumm (1.2-6.7) H 02/18/18 06:38 Absolute Lymphocytes 1.47 k/cumm (1.2-3.4) 02/18/18 06:38 Absolute Monocytes 0.84 k/cumm (0.11-0.7) H 02/18/18 06:38 Absolute Eosinophils 0.04 k/cumm (0.0-0.7) 02/18/18 06:38 Absolute Basophils 0.01 k/cumm (0.0-0.2) 02/18/18 06:38 Differential Comment Agrees w/ instrument 02/17/18 11:55 RBC Morphology Normal 02/17/18 11:55 D-Dimer 873 ng/mlFEU (<500) H 02/17/18 11:55 Sodium 138 mmol/L (136-145) 02/18/18 06:38 Potassium 2.9 mmol/L (3.5-5.1) L* 02/18/18 06:38 Chloride 101 mmol/L (98-107) 02/18/18 06:38 Carbon Dioxide 27.2 mmol/L (21.0-32.0) 02/18/18 06:38 Anion Gap 9.8 mmol/L (3-11) 02/18/18 06:38 BUN 23 mg/dL (7-18) H 02/18/18 06:38 Creatinine 1.13 mg/dL (0.70-1.30) 02/18/18 06:38 Estimated GFR/1.73 m2 >= 60.00 (mL/min/1.73m2) 02/18/18 06:38 Glucose 131 mg/dL (70-100) H 02/18/18 06:38 Lactate 1.2 mmol/L (0.6-1.4) 02/17/18 16:07 Calcium 8.9 mg/dL (8.5-10.1) 02/18/18 06:38 Magnesium 1.8 mg/dL (1.8-2.4) 02/18/18 06:38 Total Bilirubin 1.0 mg/dL (0.2-1.0) 02/17/18 11:55 AST 20 U/L (15-37) 02/17/18 11:55 ALT 45 U/L (12-78) 02/17/18 11:55 Alkaline Phosphatase 127 U/L (46-116) H 02/17/18 11:55 Troponin I < 0.02 ng/mL (0.00-0.06) 02/17/18 11:55 NT-Pro-B Natriuret Pep 679 pg/mL (-299) H 02/17/18 11:55 Total Protein 7.7 g/dL (6.4-8.2) 02/17/18 11:55 Albumin 2.5 g/dL (3.4-5.0) L 02/17/18 11:55
--- NOTE | 2018-02-18 12:08 | PDOC.CMIN ---
- If Service Date Differs Date of service: 02/18/18 Time of Service: 12:08 Care Management Initial Assess REASON FOR HOSPITALIZATION:: Sepsis d/t CAP, lactic acidosis. PAST MEDICAL HISTORY/PAST SURGICAL HISTORY:: Coronary artherosclerosis of [place] coronary vessel, degenerative arthritis of bilateral knee, DM, diverticulitis, essential HTN, hyperlipidemia, hearing loss, peripheral neuoropathy, colon polyps, osteoarthritis right knee, vitamin B12 deficiency. Surgical hx: appendectomy, colonoscopy- MAC, right tibia fx, mastoid incision, replacement left total knee. PREVIOUS FUNCTIONAL STATUS/SOCIAL/FAMILY SUPPORTS:: Shady resides alone in [facility] in his own home. 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 Shady is independent with his ADLs and transportation and reports that he is active in the community. CURRENT FUNCTIONAL STATUS:: Shady is sitting in his chair when CM visits this morning. He is engaged in conversation, makes good eye contact, and is talkative. Shady denies pain and reports that he feels much better than he did yesterday. He is receiving supplemental O2 via [place] and denies SOB or any respiratory discomfort. Shady reports that he is active with a local [employer] and goes to the gym several days per week. He owns a walker that he purchased following knee surgery two years ago but no longer needs it for ambulating. ADVANCE DIRECTIVES:: On file at [facility]. Has patient been provided with information about the portal?: Yes Did the patient sign up for the portal?: No CODE STATUS:: Full Code INSURANCE COVERAGE / FINANCIAL ISSUES:: [facility] [place], Medicare. CURRENT HOME/COMMUNITY SERVICES/EQUIPMENT:: No current home or community services. Shady does not utilize any ambulatory aids but does own a walker d/t a previous knee surgery. PRIMARY CARE PHYSICIAN:: Enzo Sparks. POTENTIAL DISCHARGE NEEDS:: Follow up appointment with PCP. PATIENT/FAMILY EDUCATION NEEDS:: Discharge education, any limitations, and follow up plan of care. Ask Me Three discussion. ANTICIPATED BARRIERS TO DISCHARGE:: No anticipated barriers to discharge. TRANSPORTATION:: Shady will transport via private vehicle with his brother, Luis Enrique. PLAN:: Shady will discharge home when medically ready per MD. Anticipate patient will discharge with no services and follow up with his PCP. CM will continue to offer support to patient and care team regarding discharge planning and disposition.
--- NOTE | 2018-02-18 12:17 | PHARADMIT ---
Addendum entered by Kirk Gómez III 02/19/18 13:24: Pharmacy Note Subjective Sepsis from Community acquired pneumonia. Showing improvement Objective VS-OK K+3.9 SCr-1.01 WBC-15.36 H&H-Plts-OK No BM yet Assessment On IV Azithro 7 Rocephin for pneumonia, On Lovenox Plan Possible discharge tomorrow. Original Note: Admission Pharmacy Clinical Review SEPSIS due to CAP, Lactic Acidosis Code Status Full Code Current Weight Wgt- 85.7 kg Renally Cleared and Narrow Therapeutic Index Meds CrCl~ 55 mL/min Meds-OK QTc Value / Action Taken NA BP Control, Fever BP- 128/70 Tmax- 37.1C Electrolytes reviewed Na- 138 K+2.9 Mag-1.8 DVT Prophylaxis asa,Lovenox Opiate Usage / Scheduled Bowel Regimen Ordered No Yes Plt/SCr for Heparin / Enoxaparin Plts- 301 SCr-1.13 INR for Warfarin NA H/H stable, WBC/Bands H&H- 11.0/34.4 WBC- 14.41 Antibiotic appropriateness Azithromycin, Rocephin Cultures and Sensitivities Sputum, Blood-Pending Surgical ABX d/c within 24 hr NA DM control / Insulin Dosing BG- 131 Aspart, Heart Failure (Check EF%) (MARY ANN's, B-Block, Diuretics) Toprol-XL, IV to PO Switch No Home Meds Reviewed Yes Home Meds Not Ordered Norvasc, Hyzaar, Metformin, Uroxatral, Mucinex-D Comments
[2018-02-18] MEDS: Insulin Aspart 300 UNITS/3 ML PEN SC ×3 (12:25→21:30)
--- NOTE | 2018-02-18 12:31 | INITIAL_ITS ---
- If Service Date Differs Date of service: 02/18/18 Time of Service: 12:08 Care Management Initial Assess REASON FOR HOSPITALIZATION:: Sepsis d/t CAP, lactic acidosis. PAST MEDICAL HISTORY/PAST SURGICAL HISTORY:: Coronary artherosclerosis of [place] coronary vessel, degenerative arthritis of bilateral knee, DM, diverticulitis, essential HTN, hyperlipidemia, hearing loss, peripheral neuoropathy, colon polyps, osteoarthritis right knee, vitamin B12 deficiency. Surgical hx: appendectomy, colonoscopy- MAC, right tibia fx, mastoid incision, replacement left total knee. PREVIOUS FUNCTIONAL STATUS/SOCIAL/FAMILY SUPPORTS:: Shady resides alone in [facility] in his own home. 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 Shady is independent with his ADLs and transportation and reports that he is active in the community. CURRENT FUNCTIONAL STATUS:: Shady is sitting in his chair when CM visits this morning. He is engaged in conversation, makes good eye contact, and is talkative. Shady denies pain and reports that he feels much better than he did yesterday. He is receiving supplemental O2 via [place] and denies SOB or any respiratory discomfort. Shady reports that he is active with a local [employer] and goes to the gym several days per week. He owns a walker that he purchased following knee surgery two years ago but no longer needs it for ambulating. ADVANCE DIRECTIVES:: On file at [facility]. Has patient been provided with information about the portal?: Yes Did the patient sign up for the portal?: No CODE STATUS:: Full Code INSURANCE COVERAGE / FINANCIAL ISSUES:: [facility] [employer], Medicare. CURRENT HOME/COMMUNITY SERVICES/EQUIPMENT:: No current home or community services. Shady does not utilize any ambulatory aids but does own a walker d/t a previous knee surgery. PRIMARY CARE PHYSICIAN:: Enzo Sparks. POTENTIAL DISCHARGE NEEDS:: Follow up appointment with PCP. PATIENT/FAMILY EDUCATION NEEDS:: Discharge education, any limitations, and follow up plan of care. Ask Me Three discussion. ANTICIPATED BARRIERS TO DISCHARGE:: No anticipated barriers to discharge. TRANSPORTATION:: Shady will transport via private vehicle with his brother, Luis Enrique. PLAN:: Shady will discharge home when medically ready per MD. Anticipate patient will discharge with no services and follow up with his PCP. CM will continue to offer support to patient and care team regarding discharge planning and disposition.
[2018-02-18] MEDS: Normal Saline Flush 10 ML SYR IVP (15:31)
[2018-02-18] MEDS: AZITHROMYCIN 500 MG in Normal Saline 250 ML 250 MG IVPB (17:00)
[2018-02-18] MEDS: Enoxaparin 30 MG/0.3 ML SYR SC (17:52)
[2018-02-18] MEDS: Metoprolol CR 50 MG TABCR 100 MG PO (21:29)
[2018-02-19] VITALS (7 sets, daily range): BP systolic 114–147; BP diastolic 56–73; PULSE 65–76; RESP 4–20; TEMP 36.9–37.3; O2SAT 91–94
[2018-02-19] MEDS: Normal Saline Flush 10 ML SYR IVP (01:00)
[2018-02-19] MEDS: Normal Saline 1,000 ML 75 ML IV (01:03)
[2018-02-19] MEDS: Nystatin 500000 UNITS/5 ML SUSP 5ML CUP PO ×5 (06:27→21:10)
[2018-02-19] MEDS: Albuterol/Ipratropium 3 ML UPD VIAL UPD ×3 (06:28→18:21)
[2018-02-19] MEDS: Acetaminophen 325 MG TAB PO ×2 (08:24→20:06)
[2018-02-19] MEDS: Potassium Chloride 20 MEQ TABCR 40 MEQ PO ×2 (08:25→20:06)
[2018-02-19] MEDS: guaiFENesin 600 MG TABCR PO ×2 (08:26→20:06)
[2018-02-19] MEDS: Atorvastatin 20 MG TAB PO (08:26)
[2018-02-19 11:38] LABS: Abs Immature Grans 0.19 k/cumm (0.0-0.09); Absolute Basophil Count 0.02 k/cumm (0.0-0.2); Absolute Eosinophil Count 0.06 k/cumm (0.0-0.7); Absolute Monocyte Count 0.74 k/cumm (0.11-0.7); Basophils % 0.1; Eosinophils % 0.4; HCT 34.9 % (40.0-50.0); HGB 11.1 g/dL (13.5-17.5); Immature Grans % 1.2; Lymphocytes % 6.4; Mean Corp. HGB Concentration 31.8 g/dL (32.0-36.0); Mean Corpuscular Hemoglobin 28.4 pg (27.0-33.0); Mean Corpuscular Volume 89.3 fL (80-95); Mean Platelet Volume 10.5 fL (8.0-11.0); Monocytes % 4.8; Neutrophils % 87.1; Platelet Count 352 x1000/uL (130-400); RBC 3.91 m/cumm (4.50-6.00); RBC Distribution Width 13.7 % (11.8-14.1); White Blood Cell Count 15.36 k/cumm (4.4-10.8)
[2018-02-19 11:42] LABS: Absolute Lymphocyte Count 0.98 k/cumm (1.2-3.4); Absolute Neutrophil Count 13.38 k/cumm (1.2-6.7)
[2018-02-19 11:46] LABS: Anion Gap 10.3 mmol/L (3-11); BUN 15 mg/dL (7-18); CO2 24.7 mmol/L (21.0-32.0); CREATININE 1.01 mg/dL (0.70-1.30); Calcium 8.9 mg/dL (8.5-10.1); Chloride 104 mmol/L (98-107); Glucose 170 mg/dL (70-100); Potassium 3.9 mmol/L (3.5-5.1); Sodium 139 mmol/L (136-145)
--- NOTE | 2018-02-19 12:53 | W.PM.PROGNOT ---
Assessment and Plan (1) Sepsis: Current visit: Yes Status: Acute Resolved with treatment of pneumonia. Blood cultures yielded no growth at 24 hours. Sputum culture growing mixed gram-positive emerson. Continue treatment with ceftriaxone and azithromycin. (2) Community acquired pneumonia: Current visit: Yes Status: Acute Symptoms improving. He continues to have leukocytosis. Continue azithromycin and ceftriaxone. Continue nebulizer treatments as needed. Continue to wean oxygen as tolerated. IV fluids have been discontinued as he is taking oral fluids well. Repeat CBC in the morning. Consider transition to oral antibiotics in the next 24-48 hours. (3) Thrush: Current visit: Yes Status: Acute Continue nystatin swish and swallow. (4) Diabetes mellitus: Current visit: Yes Status: Chronic Fingersticks are at an acceptable level. Continue to hold metformin while hospitalized. Continue short acting insulin per sliding scale. Continue to monitor blood sugars at before meals and at bedtime. (5) WESLEY (acute kidney injury): Current visit: Yes Status: Acute Resolved. Renal function back to normal. Blood pressures are well controlled. Continue to hold losartan and hydrochlorothiazide. Continue to monitor kidney function. (6) Hypokalemia: Current visit: Yes Status: Acute Resolved with supplementation. Continue to follow BMP. (7) DVT prophylaxis: Current visit: Yes Status: Acute Subcutaneous Lovenox. (8) Discharge planning issues: Current visit: Yes Status: Acute He is a full code. PT/OT have been consulted, however, he is very active with [facility] [employer] and outpatient physical therapy. He will not likely require SNF upon discharge. Consider home health services as needed. This case was discussed with Dr. Lindsay who is in agreement. Subjective Interval history since last seen: Mr. Selby is an 82 year old male with PMHx significant for CAD s/p stent, NIDDM2, hypertension, hyperlipidemia who is currently being treated for pneumonia with ceftriaxone and azithromycin, after failing outpatient therapy. He was also noted to have oral thrush on admission and is currently being treated with Nystatin. He continues to improve. He denies shortness of breath, even when he is up walking in the room. He continues to use cough, his sputum is yellow, it is becoming more thin. He is using IS. He is sleeping well and eating well. He denies chest pain/pressure, or palpitations. He denies any pain or swelling to his lower extremities. He denies any issues with bowel or bladder function. Exam Narrative Exam Narrative: General: He is a very pleasant elderly male, sitting up in a chair, speaking in full sentences without difficulty. Neurological: A&Ox3, no focal deficits Skin: no bruises/rashes, area of discoloration on mcbride of RLE. HEENT: Atraumatic, normocephalic. Pupils are equal and round, mucous membranes moist. Neck: Supple, no JVD or lymphadenopathy. Cardiovascular: RRR, no murmurs, rubs, or gallops Lungs: Respirations even and unlabored. Rales to bilateral bases, with expiratory wheezing noted. No coughing during exam. Gastrointestinal: abdomen soft, round, nontender, nondistended with normoactive bowel sounds. Extremities: no edema, clubbing, cyanosis of BLE's. Objective Objective Clinical Data: Abnormal lab results 02/19/18 02/19/18 Range/Units 10:55 10:55 WBC 15.36 H (4.4-10.8) k/cumm RBC 3.91 L (4.50-6.00) m/cumm Hgb 11.1 L (13.5-17.5) g/dL Hct 34.9 L (40.0-50.0) % MCHC 31.8 L (32.0-36.0) g/dL Absolute Neutrophils 13.38 H (1.2-6.7) k/cumm Absolute Lymphocytes 0.98 L (1.2-3.4) k/cumm Absolute Monocytes 0.74 H (0.11-0.7) k/cumm Glucose 170 H (70-100) mg/dL Vital Signs Temperature 37 C 02/19/18 11:35 Temperature Source Tympanic 02/19/18 11:35 Pulse 65 02/19/18 11:35 Pulse Rhythm Irregular 02/18/18 22:52 Pulse 80 02/17/18 16:30 Respiratory Rate 20 02/19/18 11:35 Respiratory Effort Non-Labored 02/18/18 22:52 Respiratory Depth Normal 02/18/18 22:52 Respiratory Pattern Normal 02/18/18 22:52 Blood Pressure 114/64 02/19/18 11:35 Blood Pressure Mean 71 02/17/18 16:16 Blood Pressure Position Sitting 02/17/18 11:13 Pulse Oximetry 94 L 02/19/18 11:35 Oxygen Delivery Method Room Air 02/19/18 11:35 Oxygen Flow Rate 0 02/19/18 11:35 Pain Level 0 02/18/18 09:05 Comment 02/19/18 03:32 Intake & Output 02/18/18 02/19/18 02/19/18 23:59 11:59 23:59 Intake Total 1330 / 1330 713.75 / 713.75 Output Total 1050 / 1050 624 / 624 Balance 280 / 280 89.75 / 89.75 Weight 84.6 kg Intake: IV 250 / 250 3.75 / 3.75 Oral 1080 / 1080 710 / 710 Output: Urine 1050 / 1050 624 / 624 Other: Urine Color Yellow Yellow Urine Appearance Clear Clear Voiding Methods Urinal Urinal Laboratory Results WBC 15.36 k/cumm (4.4-10.8) H 02/19/18 10:55 RBC 3.91 m/cumm (4.50-6.00) L 02/19/18 10:55 Hgb 11.1 g/dL (13.5-17.5) L 02/19/18 10:55 Hct 34.9 % (40.0-50.0) L 02/19/18 10:55 MCV 89.3 fL (80-95) 02/19/18 10:55 MCH 28.4 pg (27.0-33.0) 02/19/18 10:55 MCHC 31.8 g/dL (32.0-36.0) L 02/19/18 10:55 RDW 13.7 % (11.8-14.1) 02/19/18 10:55 Plt Count 352 x1000/uL (130-400) 02/19/18 10:55 MPV 10.5 fL (8.0-11.0) 02/19/18 10:55 Immature Gran % 1.2 02/19/18 10:55 Neutrophils % 87.1 02/19/18 10:55 Lymphocytes % 6.4 02/19/18 10:55 Monocytes % 4.8 02/19/18 10:55 Eosinophils % 0.4 02/19/18 10:55 Basophils % 0.1 02/19/18 10:55 Absolute Neutrophils 13.38 k/cumm (1.2-6.7) H 02/19/18 10:55 Absolute Lymphocytes 0.98 k/cumm (1.2-3.4) L 02/19/18 10:55 Absolute Monocytes 0.74 k/cumm (0.11-0.7) H 02/19/18 10:55 Absolute Eosinophils 0.06 k/cumm (0.0-0.7) 02/19/18 10:55 Absolute Basophils 0.02 k/cumm (0.0-0.2) 02/19/18 10:55 Differential Comment Agrees w/ instrument 02/17/18 11:55 RBC Morphology Normal 02/17/18 11:55 D-Dimer 873 ng/mlFEU (<500) H 02/17/18 11:55 Sodium 139 mmol/L (136-145) 02/19/18 10:55 Potassium 3.9 mmol/L (3.5-5.1) D 02/19/18 10:55 Chloride 104 mmol/L (98-107) 02/19/18 10:55 Carbon Dioxide 24.7 mmol/L (21.0-32.0) 02/19/18 10:55 Anion Gap 10.3 mmol/L (3-11) 02/19/18 10:55 BUN 15 mg/dL (7-18) D 02/19/18 10:55 Creatinine 1.01 mg/dL (0.70-1.30) 02/19/18 10:55 Estimated GFR/1.73 m2 >= 60.00 (mL/min/1.73m2) 02/19/18 10:55 Glucose 170 mg/dL (70-100) H 02/19/18 10:55 Lactate 1.2 mmol/L (0.6-1.4) 02/17/18 16:07 Calcium 8.9 mg/dL (8.5-10.1) 02/19/18 10:55 Magnesium 1.8 mg/dL (1.8-2.4) 02/18/18 06:38 Total Bilirubin 1.0 mg/dL (0.2-1.0) 02/17/18 11:55 AST 20 U/L (15-37) 02/17/18 11:55 ALT 45 U/L (12-78) 02/17/18 11:55 Alkaline Phosphatase 127 U/L (46-116) H 02/17/18 11:55 Troponin I < 0.02 ng/mL (0.00-0.06) 02/17/18 11:55 NT-Pro-B Natriuret Pep 679 pg/mL (-299) H 02/17/18 11:55 Total Protein 7.7 g/dL (6.4-8.2) 02/17/18 11:55 Albumin 2.5 g/dL (3.4-5.0) L 02/17/18 11:55
--- NOTE | 2018-02-19 13:05 | PDOC.CMPRO ---
- If Service Date Differs Date of service: 02/19/18 Time of Service: 13:05 Care Management Progress Note S/O: Shady is lying in bed when this promotion writer visits this morning. His friend is visiting. Shady states that he is feeling well, and is hopeful to be able to DC home this weekend. CM reviewed DC plan of care with Shady, he states that he does not feel as though he will need any services. A: 82 y/o male admitted 02/17/18 for sepsis due to CAP. P: Shady will return home with no anticipated services. He will F/U with PCP and plan of care as prescribed. Rei brother Luis Enrique to transport when ready.
--- NOTE | 2018-02-19 13:08 | CMPROGNOTE_ITS ---
- If Service Date Differs Date of service: 02/19/18 Time of Service: 13:05 Care Management Progress Note S/O: Shady is lying in bed when this music writer visits this morning. His friend is visiting. Shady states that he is feeling well, and is hopeful to be able to DC home this weekend. CM reviewed DC plan of care with Shady, he states that he does not feel as though he will need any services. A: 82 y/o male admitted 02/17/18 for sepsis due to CAP. P: Shady will return home with no anticipated services. He will F/U with PCP and plan of care as prescribed. Rei brother Luis Enrique to transport when ready.
[2018-02-19] MEDS: AZITHROMYCIN 500 MG in Normal Saline 250 ML 250 MG IVPB (16:17)
[2018-02-19] MEDS: Enoxaparin 30 MG/0.3 ML SYR SC (18:05)
[2018-02-19] MEDS: Metoprolol CR 50 MG TABCR 100 MG PO (21:09)
[2018-02-19] MEDS: Aspirin E.C. 325 MG TABEC PO (21:09)
[2018-02-19] MEDS: Insulin Aspart 300 UNITS/3 ML PEN SC (21:10)
[2018-02-20] VITALS (9 sets, daily range): BP systolic 117–149; BP diastolic 63–77; PULSE 61–67; RESP 1–18; TEMP 36–37.3; O2SAT 93–96
[2018-02-20] MEDS: Albuterol/Ipratropium 3 ML UPD VIAL UPD ×5 (00:15→23:41)
[2018-02-20] MEDS: Acetaminophen 325 MG TAB PO ×2 (00:27→08:35)
[2018-02-20] MEDS: Nystatin 500000 UNITS/5 ML SUSP 5ML CUP PO ×5 (06:14→20:55)
[2018-02-20 08:06] LABS: HCT 35.7 % (40.0-50.0); HGB 11.3 g/dL (13.5-17.5); Mean Corp. HGB Concentration 31.7 g/dL (32.0-36.0); Mean Corpuscular Hemoglobin 28.4 pg (27.0-33.0); Mean Corpuscular Volume 89.7 fL (80-95); Mean Platelet Volume 9.6 fL (8.0-11.0); Platelet Count 350 x1000/uL (130-400); RBC 3.98 m/cumm (4.50-6.00); RBC Distribution Width 13.8 % (11.8-14.1); White Blood Cell Count 10.55 k/cumm (4.4-10.8)
[2018-02-20 08:19] LABS: Anion Gap 9.7 mmol/L (3-11); BUN 11 mg/dL (7-18); CO2 26.3 mmol/L (21.0-32.0); CREATININE 0.77 mg/dL (0.70-1.30); Calcium 8.7 mg/dL (8.5-10.1); Chloride 104 mmol/L (98-107); Glucose 139 mg/dL (70-100); Magnesium 1.4 mg/dL (1.8-2.4); Potassium 4.1 mmol/L (3.5-5.1); Sodium 140 mmol/L (136-145)
[2018-02-20] MEDS: Atorvastatin 20 MG TAB PO (08:34)
[2018-02-20] MEDS: Normal Saline Flush 10 ML SYR IVP ×2 (08:34→11:19)
[2018-02-20] MEDS: guaiFENesin 600 MG TABCR PO ×2 (08:34→20:53)
[2018-02-20] MEDS: Potassium Chloride 20 MEQ TABCR 40 MEQ PO ×2 (08:35→20:54)
[2018-02-20 08:38] LABS: Absolute Basophil Count 0.11 k/cumm (0.0-0.2); Absolute Eosinophil Count 0.21 k/cumm (0.0-0.7); Absolute Lymphocyte Count 1.16 k/cumm (1.2-3.4); Absolute Monocyte Count 0.11 k/cumm (0.11-0.7); Absolute Neutrophil Count 8.86 k/cumm (1.2-6.7); Diff Comment Manual Differential; Hypochromasia 1+
[2018-02-20 08:39] LABS: Microcytosis 1+
[2018-02-20] MEDS: MAGNESIUM SULFATE 4 GM/100 ML BAG IVPB (11:18)
--- NOTE | 2018-02-20 13:54 | CMPROGNOTE_ITS ---
- If Service Date Differs Date of service: 02/20/18 Time of Service: 13:53 Care Management Progress Note S/O: Shady is sitting up in bed when this song writer visits this morning, he is pleasant and open to discussion. Shady does not require oxygen at this time and is on room air, he remains on IV antibiotics at this time. Shady reports feeling better this morning, he will possibly transition to PO antibiotics today /tomorrow. No change in current plan. A: 82 y/o male admitted 02/17/18 for sepsis due to CAP. P: Shady will return home with no anticipated services. He will F/U with PCP and plan of care as prescribed. Rei brother Luis Enrique to transport when ready.
[2018-02-20] MEDS: Azithromycin 250 MG TAB 500 MG PO (15:40)
[2018-02-20] MEDS: Insulin Aspart 300 UNITS/3 ML PEN SC ×2 (17:11→21:01)
[2018-02-20] MEDS: Enoxaparin 30 MG/0.3 ML SYR SC (17:11)
--- NOTE | 2018-02-20 19:01 | PGE_ITS ---
Assessment and Plan (1) Sepsis: Current visit: Yes Status: Acute Resolved with treatment of pneumonia. Blood cultures with no growth X 72 hours. Sputum culture growing mixed gram-positive emerson. Continue treatment with ceftriaxone and azithromycin. (2) Community acquired pneumonia: Current visit: Yes Status: Acute Symptoms improving. Significant initial leukocytosis resolved. Continue antibiotic therapy, changed to oral Cefuroxime and azithromycin, now day #4. Also on prn nebulizer treatments. (3) Thrush: Current visit: Yes Status: Acute Continue nystatin swish and swallow for 7-10 days. (4) Diabetes mellitus: Current visit: Yes Status: Chronic Fingersticks are at an acceptable level. Continue to hold metformin while hospitalized. Continue short acting insulin per sliding scale. Continue to monitor blood sugars at before meals and at bedtime. (5) WESLEY (acute kidney injury): Current visit: Yes Status: Acute Resolved. Renal function back to baseline. Continue to hold losartan and hydrochlorothiazide. Continue to monitor renal function. (6) Essential hypertension: Current visit: Yes Status: Chronic Currently with ARB-HCTZ combination on hold with blood pressure ranges in the 100-140's systolic. Continue BB, and consider reinitiation of ARB/Thiazide as an outpatient. (7) DVT prophylaxis: Current visit: Yes Status: Acute Subcutaneous Lovenox - dose increased to 40mg with resolution of WESLEY. (8) Discharge planning issues: Current visit: Yes Status: Acute Full code. Subjective Interval history since last seen: 82 year old man with a Prior History of CAD s/ p stent, DM, and HTN, admitted from [facility] ED on 02/17 with a diagnosis of Sepsis and Pneumonia. Mr. Selby reported onset of symptoms approximately 2 weeks prior to his admission, with development of a sore throat, cough productive of yellow/green sputum, and dyspnea. He was prescribed a 5 day course of amoxicillin reportedly. At time of his presentation to the emergency room he was found to be febrile, tachycardic, and mildly hypoxic. Subsequent imaging with a CTA of his chest revealed bilateral pneumonia, as well as an incidentally noted 4 cm pancreatic cyst. He was started on treatment for CAP with ceftriaxone and azithromycin, after failing outpatient therapy (although with reported amoxacilin). He was also noted to have oral thrush on admission and is currently being treated with Nystatin. This morning the patient reports continued improvement in his symptoms. He is now off oxygen therapy. No overnight events reported. Remains afebrile. Exam Narrative Exam Narrative: General: Patient appears comfortable, AAOX3, NAD Neck: Supple CV: Regular, nontachycardic, S1S2, No rubs, murmurs, or gallops. Pulmonary: Bilateral crackles worse at the left base. Minimal wheezing. Abdomen: + Bowel Sounds, soft, nontender, nondistended Vascular: No lower extremity edema Neurologic: CN II-XII grossly intact. No focal deficits. Psych: Normal mood and affect. Objective Objective Clinical Data: Abnormal lab results 02/20/18 02/20/18 Range/Units 07:53 07:53 RBC 3.98 L (4.50-6.00) m/cumm Hgb 11.3 L (13.5-17.5) g/dL Hct 35.7 L (40.0-50.0) % MCHC 31.7 L (32.0-36.0) g/dL Absolute Neutrophils 8.86 H (1.2-6.7) k/cumm Absolute Lymphocytes 1.16 L (1.2-3.4) k/cumm Glucose 139 H (70-100) mg/dL Magnesium 1.4 L (1.8-2.4) mg/dL Vital Signs Temperature 36.8 C 02/20/18 16:21 Temperature Source Tympanic 02/20/18 16:21 Pulse 65 02/20/18 16:21 Pulse Rhythm Regular 02/20/18 07:40 Pulse 80 02/17/18 16:30 Respiratory Rate 18 02/20/18 16:21 Respiratory Effort Non-Labored 02/20/18 07:40 Respiratory Depth Normal 02/20/18 07:40 Respiratory Pattern Normal 02/20/18 07:40 Blood Pressure 149/77 H 02/20/18 16:21 Blood Pressure Mean 71 02/17/18 16:16 Blood Pressure Position Sitting 02/17/18 11:13 Pulse Oximetry 95 02/20/18 16:21 Oxygen Delivery Method Room Air 02/20/18 16:21 Oxygen Flow Rate 0 02/20/18 16:21 Pain Level 0 02/19/18 15:35 Comment 02/19/18 03:32 Intake & Output 02/19/18 02/20/18 02/20/18 23:59 11:59 23:59 Intake Total 1100 / 1100 570 / 570 600 / 600 Output Total 600 / 600 500 / 500 Balance 500 / 500 70 / 70 600 / 600 Weight 86.1 kg Intake: IV 250 / 250 70 / 70 100 / 100 Oral 850 / 850 500 / 500 500 / 500 Output: Urine 600 / 600 500 / 500 Other: Urine Color Yellow Yellow Urine Appearance Clear Clear Urine Odor Normal Comment Pt voiding independently in toilet. Voiding Methods Urinal Toilet Laboratory Results WBC 10.55 k/cumm (4.4-10.8) D 02/20/18 07:53 RBC 3.98 m/cumm (4.50-6.00) L 02/20/18 07:53 Hgb 11.3 g/dL (13.5-17.5) L 02/20/18 07:53 Hct 35.7 % (40.0-50.0) L 02/20/18 07:53 MCV 89.7 fL (80-95) 02/20/18 07:53 MCH 28.4 pg (27.0-33.0) 02/20/18 07:53 MCHC 31.7 g/dL (32.0-36.0) L 02/20/18 07:53 RDW 13.8 % (11.8-14.1) 02/20/18 07:53 Plt Count 350 x1000/uL (130-400) 02/20/18 07:53 MPV 9.6 fL (8.0-11.0) 02/20/18 07:53 Immature Gran % See Differential 02/20/18 07:53 Neutrophils % 84.0 02/20/18 07:53 Lymphocytes % 11.0 02/20/18 07:53 Monocytes % 1.0 02/20/18 07:53 Eosinophils % 2.0 02/20/18 07:53 Basophils % 1.0 02/20/18 07:53 Absolute Neutrophils 8.86 k/cumm (1.2-6.7) H 02/20/18 07:53 Absolute Lymphocytes 1.16 k/cumm (1.2-3.4) L 02/20/18 07:53 Absolute Monocytes 0.11 k/cumm (0.11-0.7) 02/20/18 07:53 Absolute Eosinophils 0.21 k/cumm (0.0-0.7) 02/20/18 07:53 Absolute Basophils 0.11 k/cumm (0.0-0.2) 02/20/18 07:53 Metamyelocytes 1.0 % 02/20/18 07:53 Differential Comment Manual differential 02/20/18 07:53 RBC Morphology See below 02/20/18 07:53 Hypochromasia 1+ 02/20/18 07:53 Microcytosis 1+ 02/20/18 07:53 D-Dimer 873 ng/mlFEU (<500) H 02/17/18 11:55 Sodium 140 mmol/L (136-145) 02/20/18 07:53 Potassium 4.1 mmol/L (3.5-5.1) 02/20/18 07:53 Chloride 104 mmol/L (98-107) 02/20/18 07:53 Carbon Dioxide 26.3 mmol/L (21.0-32.0) 02/20/18 07:53 Anion Gap 9.7 mmol/L (3-11) 02/20/18 07:53 BUN 11 mg/dL (7-18) 02/20/18 07:53 Creatinine 0.77 mg/dL (0.70-1.30) 02/20/18 07:53 Estimated GFR/1.73 m2 >= 60.00 (mL/min/1.73m2) 02/20/18 07:53 Glucose 139 mg/dL (70-100) H 02/20/18 07:53 Lactate 1.2 mmol/L (0.6-1.4) 02/17/18 16:07 Calcium 8.7 mg/dL (8.5-10.1) 02/20/18 07:53 Magnesium 1.4 mg/dL (1.8-2.4) L 02/20/18 07:53 Total Bilirubin 1.0 mg/dL (0.2-1.0) 02/17/18 11:55 AST 20 U/L (15-37) 02/17/18 11:55 ALT 45 U/L (12-78) 02/17/18 11:55 Alkaline Phosphatase 127 U/L (46-116) H 02/17/18 11:55 Troponin I < 0.02 ng/mL (0.00-0.06) 02/17/18 11:55 NT-Pro-B Natriuret Pep 679 pg/mL (-299) H 02/17/18 11:55 Total Protein 7.7 g/dL (6.4-8.2) 02/17/18 11:55 Albumin 2.5 g/dL (3.4-5.0) L 02/17/18 11:55
[2018-02-20] MEDS: Cefuroxime 500 MG TAB PO (20:54)
[2018-02-20] MEDS: Metoprolol CR 50 MG TABCR 100 MG PO (20:54)
[2018-02-21 03:18] VITALS: BP 128/70; PULSE 77; RESP 16; TEMP 36.2; O2SAT 94
[2018-02-21] MEDS: Albuterol/Ipratropium 3 ML UPD VIAL UPD ×2 (06:11→11:00)
[2018-02-21] MEDS: Nystatin 500000 UNITS/5 ML SUSP 5ML CUP PO ×2 (06:11→09:47)
[2018-02-21 07:15] VITALS: BP 124/76; PULSE 69; RESP 18; TEMP 36.1; O2SAT 96
[2018-02-21 07:40] VITALS: O2SAT 94
[2018-02-21 07:58] LABS: HCT 36.6 % (40.0-50.0); HGB 11.6 g/dL (13.5-17.5); Mean Corp. HGB Concentration 31.7 g/dL (32.0-36.0); Mean Corpuscular Hemoglobin 28.5 pg (27.0-33.0); Mean Corpuscular Volume 89.9 fL (80-95); Mean Platelet Volume 9.7 fL (8.0-11.0); RBC 4.07 m/cumm (4.50-6.00); RBC Distribution Width 13.8 % (11.8-14.1); White Blood Cell Count 10.41 k/cumm (4.4-10.8)
[2018-02-21 08:09] LABS: Anion Gap 8.3 mmol/L (3-11); BUN 10 mg/dL (7-18); CO2 27.7 mmol/L (21.0-32.0); CREATININE 0.83 mg/dL (0.70-1.30); Chloride 102 mmol/L (98-107); Glucose 149 mg/dL (70-100); Magnesium 1.9 mg/dL (1.8-2.4); Potassium 4.5 mmol/L (3.5-5.1); Sodium 138 mmol/L (136-145)
[2018-02-21 08:27] LABS: Absolute Lymphocyte Count 1.15 k/cumm (1.2-3.4); Absolute Monocyte Count 0.42 k/cumm (0.11-0.7); Absolute Neutrophil Count 8.43 k/cumm (1.2-6.7); Platelet Count 412 x1000/uL (130-400)
[2018-02-21 08:28] LABS: Diff Comment Manual Differential; RBC Morphology Normal
[2018-02-21] MEDS: guaiFENesin 600 MG TABCR PO (08:30)
[2018-02-21] MEDS: Insulin Aspart 300 UNITS/3 ML PEN SC (08:30)
[2018-02-21] MEDS: Cefuroxime 500 MG TAB PO (08:30)
[2018-02-21] MEDS: Atorvastatin 20 MG TAB PO (08:30)
[2018-02-21] MEDS: Potassium Chloride 20 MEQ TABCR 40 MEQ PO (08:30)
[2018-02-21] MEDS: Acetaminophen 325 MG TAB PO (08:31)
[2018-02-21] MEDS: Normal Saline Flush 10 ML SYR IVP (08:31)
--- NOTE | 2018-02-21 10:52 | W.PM.DS.N ---
Documented by User: Shruthi Decker NP 02/21/18 10:56 Date of service: 02/21/18 Time of Service: 10:15 DS: Diagnosis Discharge Diagnosis (1) Sepsis: Status: Acute (2) Community acquired pneumonia: Status: Acute (3) Thrush: Status: Acute (4) Diabetes mellitus: Status: Chronic (5) WESLEY (acute kidney injury): Status: Acute (6) Essential hypertension: Status: Chronic (7) DVT prophylaxis: Status: Acute (8) Discharge planning issues: Status: Acute Discharge Plan Disposition Patient Disposition: HOME Condition: Improving Discharge Details Reason For Visit: SEPSIS DUE TO CAP, LACTIC ACIDOSIS Admit Date/Time: 02/17/18 15:07 Admit Provider: Deann Lindsay Attending Provider: Deann Lindsay Primary Care Provider: Enzo Sparks Home Meds and New Rx's Prescriptions: New nystatin 100,000 unit/mL Suspension 500,000 units PO 5X/DAY 5 Days Qty: 125 RF: 0 cefuroxime axetil 500 mg tablet 500 mg PO BID Qty: 5 RF: 0 guaifenesin [Mucinex] 600 mg Tablet Extended Release 12hr 600 mg PO BID Qty: 5 RF: 0 Continue triamcinolone acetonide 15 GM ointment 1 pedro pablo Topical BID PRNQty: 3 RF: 4 acetaminophen [Tylenol Arthritis] 650 MG tablet extended release 1 tab PO .4 OR 5 TIMES A DAY PRNRF: 0 aspirin [Ecotrin] 325 MG tablet,delayed release (DR/EC) 325 mg PO .QOD HS RF: 0 garlic 1 EACH capsule 1 cap PO DAILY RF: 0 gjjhgcazqgx-ogwcrgqhr-tja C-Mn 1 EACH tablet 1 tab PO DAILY RF: 0 cranberry fruit concentrate 450 MG capsule 450 mg PO DAILY RF: 0 blood sugar diagnostic [OneTouch Ultra Test] 1 EACH strip 1 strip Miscellaneous DAILY Qty: 100 RF: 6 losartan-hydrochlorothiazide [Hyzaar] 1 EACH tablet 1 tab-cap PO DAILY Qty: 90 RF: 4 vitamin O49-aunqv acid 1 EACH tablet 1 ea PO DAILY Qty: 90 RF: 3 cetirizine [Zyrtec] 10 mg tablet 10 mg PO DAILY PRNRF: 0 Discharge Instructions Instructions: Community Acquired Pneumonia (DC), Lactic Acidosis (GEN) Stand Alone Forms: Nursing Discharge Form Referrals: Enzo Sparks, [Primary Care Provider] - (Please call your PCP office t schedule a follow up appointment for within 2 weeks. [phone]) Activity:: Activity as Tolerated Equipment/Supplies:: No Equipment Needed Diet:: As Tolerated Discharge Orders Discharge Orders: Discharge Order (Routine); Ordered 02/21/18 Ordered By: Shruthi Decker Exam Const General: cooperative, healthy appearing and no acute distress Nutritional Appearance: average body habitus Orientation: alert and oriented x3 HENMT Head: normocephalic and atraumatic Mouth: moist mucous membranes abnormal (white coat on tongue) Resp Effort & Inspection: normal respiratory effort and able to speak in complete sentences Auscultation: lung sounds not diminished, no rales, rhonchi left lower and no wheezes Cardio Rate: regular rate Rhythm: regular rhythm GI Inspection: normal to inspection Palpation: soft Auscultation: normal bowel sounds Skin General skin exam: no rashes or lesions noted Neuro General: alert and oriented x3 Extrem General: normal to inspection and full ROM Psych Appearance: grossly normal and well kempt Mental Status: mental status grossly normal Speech and Movement: speech and movement normal Mood: congruent mood Affect: normal affect Attitude: cooperative Thought Process: normal Judgment: judgment good DS: Data Vitals/I&O Vitals and I&O: Vital Signs Temperature 36.1 C L 02/21/18 07:15 Temperature Source Tympanic 02/21/18 07:15 Pulse 69 02/21/18 07:15 Pulse Rhythm Regular 02/21/18 08:30 Pulse 80 02/17/18 16:30 Respiratory Rate 18 02/21/18 07:15 Respiratory Effort Non-Labored 02/21/18 08:30 Respiratory Depth Normal 02/21/18 08:30 Respiratory Pattern Normal 02/21/18 08:30 Blood Pressure 124/76 02/21/18 07:15 Blood Pressure Mean 71 02/17/18 16:16 Blood Pressure Position Sitting 02/17/18 11:13 Pulse Oximetry 96 02/21/18 07:15 Oxygen Delivery Method Room Air 02/21/18 07:15 Oxygen Flow Rate 0 02/21/18 07:15 Pain Level 0 02/21/18 07:15 Comment 02/19/18 03:32 Intake & Output 02/20/18 02/20/18 02/21/18 11:59 23:59 11:59 Intake Total 570 / 570 1560 / 1560 370 / 370 Output Total 500 / 500 Balance 70 / 70 1560 / 1560 370 / 370 Weight 86.1 kg Intake: IV 70 / 70 100 / 100 10 Oral 500 / 500 1460 / 1460 360 / 360 Output: Urine 500 / 500 Other: Urine Color Yellow Urine Appearance Clear Comment Pt voiding independently in toilet. Pt voiding independently in toilet. Voiding Methods Toilet Toilet Toilet Labs on day of discharge: Labs from last 24 hours 02/21/18 02/21/18 07:13 07:13 WBC 10.41 RBC 4.07 L Hgb 11.6 L Hct 36.6 L MCV 89.9 MCH 28.5 MCHC 31.7 L RDW 13.8 Plt Count 412 H MPV 9.7 Immature Gran % See Differential Neutrophils % 81.0 Lymphocytes % 11.0 Monocytes % 4.0 Eosinophils % 1.0 Basophils % 0.0 Absolute Neutrophils 8.43 H Absolute Lymphocytes 1.15 L Absolute Monocytes 0.42 Absolute Eosinophils 0.10 Absolute Basophils 0.00 Metamyelocytes 2.0 Myelocytes 1.0 Differential Comment Manual differential RBC Morphology Normal Sodium 138 Potassium 4.5 Chloride 102 Carbon Dioxide 27.7 Anion Gap 8.3 BUN 10 Creatinine 0.83 Estimated GFR/1.73 m2 >= 60.00 Glucose 149 H Calcium 9.0 Magnesium 1.9 Preliminary micro results at discharge 02/17/18 13:38 Blood Culture - Preliminary Blood NO GROWTH 72 HOURS 02/17/18 13:22 Blood Culture - Preliminary Blood NO GROWTH 72 HOURS
--- NOTE | 2018-02-21 11:07 | W.PM.DS.N ---
DS: Diagnosis Discharge Diagnosis (1) Sepsis: Status: Acute (2) Community acquired pneumonia: Status: Acute (3) Thrush: Status: Acute (4) Diabetes mellitus: Status: Chronic (5) WESLEY (acute kidney injury): Status: Acute (6) Essential hypertension: Status: Chronic (7) DVT prophylaxis: Status: Acute (8) Discharge planning issues: Status: Acute Discharge Plan Disposition Patient Disposition: HOME Condition: Improving Discharge Details Reason For Visit: SEPSIS DUE TO CAP, LACTIC ACIDOSIS Admit Date/Time: 02/17/18 15:07 Admit Provider: Deann Lindsay Attending Provider: Deann Lindsay Primary Care Provider: Enzo Sparks Hospital Course Hospital Course: This is an 82-year-old male patient with a past medical history significant for coronary artery disease diabetes mellitus type 2 and hypertension who was admitted through the emergency department for sepsis and pneumonia. His symptoms started approximately 2 weeks prior to admission he was treated with as an outpatient with amoxicillin for cough sore throat and shortness of breath. His symptoms worsened and he eventually presented to the emergency department with sepsis from his pneumonia. He was admitted under hospitalist services on IV ceftriaxone and azithromycin. He was also found to have thrush so was treated with nystatin. His sepsis resolved and his symptoms improved with initiated treatment. His white count normalized he remained afebrile and he was weaned off of oxygen has been oxygenating well on room air. He is eating and drinking his bowels and bladder are functioning well. On admission he was found to have some prerenal acute kidney injury which responded to IV fluids and his losartan hydrochlorothiazide and metformin were placed on hold. They will all be resumed at time of discharge as his kidney function has returned to baseline. Blood sugars in the hospital were managed with short acting insulin by sliding scale with meals and at bedtime. 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 He will be discharged to home on cefuroxime 500 mg twice daily for 5 more days doses to complete a 7-day course he has completed 5 days of azithromycin. He will need no home health services and has been instructed to call his primary care provider first thing Thursday morning for follow-up appointment. Home Meds and New Rx's Prescriptions: New nystatin 100,000 unit/mL Suspension 500,000 units PO 5X/DAY 5 Days Qty: 125 RF: 0 cefuroxime axetil 500 mg tablet 500 mg PO BID Qty: 5 RF: 0 guaifenesin [Mucinex] 600 mg Tablet Extended Release 12hr 600 mg PO BID Qty: 5 RF: 0 Continue atorvastatin [Lipitor] 20 mg tablet 20 mg PO DAILY RF: 0 metoprolol succinate 100 mg cap,sprinkle,ER 24hr dose pack 100 mg PO HS RF: 0 metformin [Glucophage] 1,000 mg tablet 1,000 mg PO BID RF: 0 triamcinolone acetonide 15 GM ointment 1 pedro pablo Topical BID PRNQty: 3 RF: 4 acetaminophen [Tylenol Arthritis] 650 MG tablet extended release 1 tab PO .4 OR 5 TIMES A DAY PRNRF: 0 aspirin [Ecotrin] 325 MG tablet,delayed release (DR/EC) 325 mg PO .QOD HS RF: 0 garlic 1 EACH capsule 1 cap PO DAILY RF: 0 nncxlbxlvns-driybxyoc-ubi C-Mn 1 EACH tablet 1 tab PO DAILY RF: 0 cranberry fruit concentrate 450 MG capsule 450 mg PO DAILY RF: 0 blood sugar diagnostic [[place] InternationalTouch Ultra Test] 1 EACH strip 1 strip Miscellaneous DAILY Qty: 100 RF: 6 losartan-hydrochlorothiazide [Hyzaar] 1 EACH tablet 1 tab-cap PO DAILY Qty: 90 RF: 4 vitamin A59-abohr acid 1 EACH tablet 1 ea PO DAILY Qty: 90 RF: 3 cetirizine [Zyrtec] 10 mg tablet 10 mg PO DAILY PRNRF: 0 Discontinued pseudoephedrine-guaifenesin [Mucinex D Maximum Strength] 120-1,200 mg tablet extended release 12 hr 1 tab PO PRN PRNRF: 0 Discharge Instructions Instructions: Community Acquired Pneumonia (DC), Lactic Acidosis (GEN) Stand Alone Forms: Nursing Discharge Form Referrals: Enzo Sparks DO [Primary Care Provider] - (Please call your PCP office t schedule a follow up appointment for within 2 weeks. [phone]) Activity:: Activity as Tolerated Equipment/Supplies:: No Equipment Needed Diet:: As Tolerated Discharge Orders Discharge Orders: Discharge Order (Routine); Ordered 02/21/18 Ordered By: Shruthi Decker DS: Data Vitals/I&O Vitals and I&O: Vital Signs Temperature 36.1 C L 02/21/18 07:15 Temperature Source Tympanic 10/28/18 07:15 Pulse 69 02/21/18 07:15 Pulse Rhythm Regular 02/21/18 08:30 Pulse 80 02/17/18 16:30 Respiratory Rate 18 02/21/18 07:15 Respiratory Effort Non-Labored 02/21/18 08:30 Respiratory Depth Normal 02/21/18 08:30 Respiratory Pattern Normal 02/21/18 08:30 Blood Pressure 124/76 02/21/18 07:15 Blood Pressure Mean 71 02/17/18 16:16 Blood Pressure Position Sitting 02/17/18 11:13 Pulse Oximetry 96 02/21/18 07:15 Oxygen Delivery Method Room Air 02/21/18 07:15 Oxygen Flow Rate 0 02/21/18 07:15 Pain Level 0 02/21/18 07:15 Comment 02/19/18 03:32 Intake & Output 02/20/18 02/20/18 02/21/18 11:59 23:59 11:59 Intake Total 570 / 570 1560 / 1560 370 / 370 Output Total 500 / 500 Balance 70 / 70 1560 / 1560 370 / 370 Weight 86.1 kg Intake: IV 70 / 70 100 / 100 10 / 10 Oral 500 / 500 1460 / 1460 360 / 360 Output: Urine 500 / 500 Other: Urine Color Yellow Urine Appearance Clear Comment Pt voiding independently in toilet. Pt voiding independently in toilet. Voiding Methods Toilet Toilet Toilet Labs on day of discharge: Labs from last 24 hours 02/21/18 02/21/18 07:13 07:13 WBC 10.41 RBC 4.07 L Hgb 11.6 L Hct 36.6 L MCV 89.9 MCH 28.5 MCHC 31.7 L RDW 13.8 Plt Count 412 H MPV 9.7 Immature Gran % See Differential Neutrophils % 81.0 Lymphocytes % 11.0 Monocytes % 4.0 Eosinophils % 1.0 Basophils % 0.0 Absolute Neutrophils 8.43 H Absolute Lymphocytes 1.15 L Absolute Monocytes 0.42 Absolute Eosinophils 0.10 Absolute Basophils 0.00 Metamyelocytes 2.0 Myelocytes 1.0 Differential Comment Manual differential RBC Morphology Normal Sodium 138 Potassium 4.5 Chloride 102 Carbon Dioxide 27.7 Anion Gap 8.3 BUN 10 Creatinine 0.83 Estimated GFR/1.73 m2 >= 60.00 Glucose 149 H Calcium 9.0 Magnesium 1.9 Preliminary micro results at discharge 02/17/18 13:38 Blood Culture - Preliminary Blood NO GROWTH 72 HOURS 02/17/18 13:22 Blood Culture - Preliminary Blood NO GROWTH 72 HOURS
--- NOTE | 2018-02-21 14:25 | PDOC.CMDIS ---
- If Service Date Differs Date of service: 02/21/18 Time of Service: 14:25 LACE Index Scoring Tool - Questions: Length of Stay (in days): 4 - 6 Acuity (Admit via E.D.?): Yes Comorbidities: Diabetes w/o Complication E.D. Visits: 1 - Answers: Total Score: 9 Risk of Readmission: Low Risk Care Management Discharge Reason for Hospitalization: Sepsis d/t CAP, lactic acidosis. Discharge Plan: Shady will return home today with no services. He will f/u with PCP and plan of care as prescribed. Family to transport. Patient/Family Education Needs: Review DC instructions, any limitations, and discuss 'Ask Me Three'
== END 2018-02-21 11:08 | disposition home or self-care (01) | DRG 871 ==
LOC: ER 15:34 → MS 17:50
PROVIDERS: Nurse Practitioner; Admitting Provider Internal Medicine; Emergency Provider Physician Assistant; PCP Emergency Medicine; Visit Provider Internal Medicine
DX: A41.9 Sepsis, unspecified organism (principal); J18.9 Pneumonia, unspecified organism; B37.0 Candidal stomatitis; N17.9 Acute kidney failure, unspecified; K86.2 Cyst of pancreas; E11.9 Type 2 diabetes mellitus without complications; I10 Essential (primary) hypertension; R09.02 Hypoxemia; Z79.84 Long term (current) use of oral hypoglycemic drugs; E78.5 Hyperlipidemia, unspecified; Z73.89 Other problems related to life management difficulty
CPT/HCPCS: 36415; 71275; 80048; 80053; 87040; 93005; 94640; 96361; 96365; 96366; 96367; 97161; 97165; 99223; 99232; 99238; 99239; 99285; 71046; 83605; 83735; 83880; 84484; 85025; 85379; 87070; 87205; 93010; J0456; J0696; J1650; J3475; J3490; J7620

== ENCOUNTER 2018-03-10 11:51 | Outpatient (CLI) | payer MEDICARE, SELFPAY ==
[2018-03-10 13:15] LABS: Abs Immature Grans 0.01 k/cumm (0.0-0.09); Absolute Basophil Count 0.01 k/cumm (0.0-0.2); Absolute Eosinophil Count 0.29 k/cumm (0.0-0.7); Absolute Lymphocyte Count 1.31 k/cumm (1.2-3.4); Absolute Monocyte Count 0.51 k/cumm (0.11-0.7); Absolute Neutrophil Count 2.92 k/cumm (1.2-6.7); Basophils % 0.2; Eosinophils % 5.7; HCT 38.1 % (40.0-50.0); HGB 11.9 g/dL (13.5-17.5); Immature Grans % 0.2; Lymphocytes % 25.9; Mean Corp. HGB Concentration 31.2 g/dL (32.0-36.0); Mean Corpuscular Hemoglobin 28.6 pg (27.0-33.0); Mean Corpuscular Volume 91.6 fL (80-95); Mean Platelet Volume 9.8 fL (8.0-11.0); Monocytes % 10.1; Neutrophils % 57.9; Platelet Count 208 x1000/uL (130-400); RBC 4.16 m/cumm (4.50-6.00); RBC Distribution Width 14.6 % (11.8-14.1); White Blood Cell Count 5.05 k/cumm (4.4-10.8)
[2018-03-10 13:29] LABS: NT-proBNP 185 pg/mL
== END 2018-03-10 12:11 ==
PROVIDERS: PCP Emergency Medicine; Visit Provider Emergency Medicine
DX: I50.9 Heart failure, unspecified (principal); K57.30 Diverticulosis of large intestine without perforation or abscess without bleeding
CPT/HCPCS: 36415; 83880; 85025

== ENCOUNTER → 2018-05-11 09:56 | Outpatient (BNVA) | payer MEDICARE, SELFPAY | PROVIDERS: PCP Emergency Medicine; Referring Provider Emergency Medicine; Visit Provider Orthopaedic Surgery | DX: M17.11 Unilateral primary osteoarthritis, right knee (principal); I10 Essential (primary) hypertension; E11.40 Type 2 diabetes mellitus with diabetic neuropathy, unspecified; Z79.84 Long term (current) use of oral hypoglycemic drugs | CPT/HCPCS: 20610; 99211; 99213; J1040 ==

== ENCOUNTER 2018-06-01 11:38 | Outpatient (CLI) | payer MEDICARE, SELFPAY ==
[2018-06-01 13:06] LABS: Hemoglobin A1C 6.8 % (4.5-6.2)
[2018-06-01 13:30] LABS: Anion Gap 8.4 mmol/L (3-11); BUN 16 mg/dL (7-18); CO2 30.6 mmol/L (21.0-32.0); CREATININE 0.93 mg/dL (0.70-1.30); Calcium 9.6 mg/dL (8.5-10.1); Chloride 106 mmol/L (98-107); Glucose 137 mg/dL (70-100); Potassium 3.8 mmol/L (3.5-5.1); Sodium 145 mmol/L (136-145)
== END 2018-06-01 11:58 ==
PROVIDERS: PCP Emergency Medicine; Visit Provider Emergency Medicine
DX: E11.9 Type 2 diabetes mellitus without complications (principal); I10 Essential (primary) hypertension
CPT/HCPCS: 36415; 80048; 83036

== ENCOUNTER → 2018-08-10 09:52 | Outpatient (BNVA) | payer MEDICARE, SELFPAY | PROVIDERS: PCP Emergency Medicine; Referring Provider Emergency Medicine; Visit Provider Orthopaedic Surgery | DX: M17.11 Unilateral primary osteoarthritis, right knee (principal); I10 Essential (primary) hypertension; E11.40 Type 2 diabetes mellitus with diabetic neuropathy, unspecified | CPT/HCPCS: 20610; 99211; 99212; J1040 ==

== ENCOUNTER → 2018-11-09 10:38 | Outpatient (BNVA) | payer MEDICARE, SELFPAY | PROVIDERS: PCP Emergency Medicine; Referring Provider Emergency Medicine; Visit Provider Orthopaedic Surgery | DX: M17.11 Unilateral primary osteoarthritis, right knee (principal); E11.40 Type 2 diabetes mellitus with diabetic neuropathy, unspecified; I10 Essential (primary) hypertension | CPT/HCPCS: 20610; 99211; 99213; J1040 ==

== ENCOUNTER 2018-11-30 11:31 | Outpatient (CLI) | payer MEDICARE, SELFPAY ==
[2018-11-30 12:55] LABS: Abs Immature Grans 0.02 k/cumm (0.0-0.09); Absolute Basophil Count 0.01 k/cumm (0.0-0.2); Absolute Eosinophil Count 0.22 k/cumm (0.0-0.7); Absolute Lymphocyte Count 1.24 k/cumm (1.2-3.4); Basophils % 0.1; HCT 42.9 % (40.0-50.0); HGB 13.8 g/dL (13.5-17.5); Immature Grans % 0.3; Mean Corp. HGB Concentration 32.2 g/dL (32.0-36.0); Mean Corpuscular Hemoglobin 29.2 pg (27.0-33.0); Mean Corpuscular Volume 90.9 fL (80-95); Mean Platelet Volume 10.3 fL (8.0-11.0); Monocytes % 8.2; Neutrophils % 71.4; Platelet Count 183 x1000/uL (130-400); RBC 4.72 m/cumm (4.50-6.00); RBC Distribution Width 13.5 % (11.8-14.1); White Blood Cell Count 7.29 k/cumm (4.4-10.8)
[2018-11-30 13:02] LABS: Iron 86 ug/dL (50-175); Total Iron Binding Capacity 337 ug/dL (250-450); Transferrin Sat 26 % (20-55)
[2018-11-30 13:26] LABS: Ferritin 36 ng/mL (8-388); Vitamin B12 1744 pg/mL (193-986)
[2018-11-30 13:59] LABS: Folate > 20.0 ng/mL (8.6-20.0)
[2018-11-30 14:51] LABS: Hemoglobin A1C 6.7 % (4.5-6.2)
== END 2018-11-30 11:51 ==
PROVIDERS: PCP Emergency Medicine; Visit Provider Emergency Medicine
DX: D64.9 Anemia, unspecified (principal); E11.9 Type 2 diabetes mellitus without complications
CPT/HCPCS: 36415; 82607; 82728; 82746; 83036; 83540; 83550; 85025

== ENCOUNTER 2019-02-07 11:35 | Outpatient (CLI) | payer MEDICARE, SELFPAY ==
--- NOTE | 2019-02-07 08:21 | DI.RAD_ITS ---
EXAM: XR STANDING ALIGNMENT INDICATION: R knee pain. COMPARISON: No exams were available for comparison TECHNIQUE: 2D digital imaging was performed. FINDINGS: AP views of both lower extremities were obtained for leg length determination. There are moderate to severe degenerative changes of both hips. There is a total knee joint replacement in position on th e left. There are severe degenerative changes of the tibiofemoral joints on the right. 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 There are old healed fract ures of the tibia and fibula on the right. IMPRESSION:
--- NOTE | 2019-02-07 08:21 | DI.RAD_ITS ---
EXAM: XR KNEE RT 2V AP,LAT INDICATION: R knee pain. COMPARISON: LEFT KNEE 3 VIEW COMPLETE from 09/13/2015 TECHNIQUE: 2D digital imaging was performed. FINDINGS: Two views were obtained. There is marked loss of the cartilaginous joint space of medial and lateral tibiofemoral joints. Moderate hypertrophic marginal osteophyte formation noted at multiple sites. Probable knee joint effusion. Presumed enchondroma versus bone infarct noted in the distal metaphysi s of the femur. Subchondral sclerosis and cyst formation at both tibial femoral joints. Mild medial subluxation of the femur on the tibia. IMPRESSION: Severe degenerative changes of medial and lateral tibiofibular joints.
== END 2019-02-07 11:55 ==
PROVIDERS: PCP Emergency Medicine; Referring Provider Emergency Medicine; Visit Provider Student in an Organized Health Care Education/Training Program
DX: M25.561 Pain in right knee (principal); M25.461 Effusion, right knee; M17.11 Unilateral primary osteoarthritis, right knee; M16.0 Bilateral primary osteoarthritis of hip; Z96.652 Presence of left artificial knee joint
CPT/HCPCS: 99214; 73560; 77073

== ENCOUNTER 2019-03-23 09:33 | Outpatient (CLI) | payer MEDICARE, SELFPAY ==
--- NOTE | 2019-03-23 08:00 | HPE_ITS ---
Assessment and Plan Assessment and plan (1) Arthritis of knee, right: Status: Chronic Assessment and plan: Plan: Standing alignment x-rays were ordered at his last visit on 02/07/19. Educated patient on surgery covering surgical technique, recovery process, benefits and risks including but not limited to risk of infection, blood clot, damage to soft tissue/blood vessels/nerves in detail. After discussion patient gives verbal understanding of risks and elects to proceed with scheduling surgery. Patient had opportunity to have questions answered to their satisfaction. They will contact office if issues arise. Patient will continue to be scheduled for right total knee with Dr. Curry. History of Present Illness Narrative: Mr. Selby is an 83-year-old male who presents to clinic for pre- operative exam for scheduled right TKA with Dr. Curry. Shady was a long-time patient of Dr. Jensen who was treated with previously scheduled steroid injections for 7 years. Patient had been having significant symptomatic improvement with injections but states more recently did not have significant relief. Pain is located near his patella as well as intermittently along his joint lines. Patient continues to report discomfort in his knee is aggravated with activities of managing his house such as carrying firewood, working with physical therapy gym, and has even had to quit square dancing. Additionally states pain is aggravated with ascending/descending stairs; describes it as a struggle that gets worse throughout the day. Due to patient's continued pain he was offered surgical intervention and elected to proceed. Pertinent Surgical Information He is status post left TKA done in 2016. States he has continued to have restricted ROM since surgery. Denies any pain in his left knee or having inability to complete desired activity i.e. stairs due to restricted motion, however feels that the knee should have better motion. Reports his diabetes is well controlled with morning blood glucose around 100- 120. His last A1c was done on 11/30/18 and was 6.7 High. Denies known history of BPH. Reports has been taking alfuzosin for the last 3 years which helps with his urine flow. Patient brings documentation for GI at [facility] from 12/15/18 that states they see benign blood filled cysts in the liver and what appears to be a cyst in the pancreas, no suggestion of cancer. He plans to have scheduled follow-up with them in summer 2019. Does have history of cardiac stent placed approximately 6 years ago. Denies any continued cardiac issues. As per his PCP's note on 06/01/18 Dr. Sparks noted a faint grade 1 murmur at the left sternal border. No murmur was appreciated at today's visit. Negative cardiac ROS. Denies past medical history of: stroke, angina, asthma, COPD, sleep apnea, renal issues, hepatitis, gastrointestinal ulcers, bleeding disorders, seizures, migraines, anxiety, depression, autoimmune disorders, thyroid issues Denies prior complications from surgery or anesthesia. Review of Systems Constitutional Constitutional: Denies fever(s), Denies frequent falls and Denies headache(s) Eyes Eyes: Denies change in vision ENT Ears, Nose, Mouth, and Throat: Denies dizziness, Denies ear discharge, Denies headache(s), Denies epistaxis, Denies nasal discharge and Denies sore throat Cardiovascular Cardiovascular: Denies chest pain, Denies chest pain at rest, Denies chest pain with activity, Denies diaphoresis, Denies rapid heart rate, Denies irregular heart rhythm, Denies palpitations, Denies dyspnea, Denies dyspnea on exertion, Denies orthopnea, Denies paroxysmal nocturnal dyspnea and Denies slow heart rate Respiratory Respiratory: Denies cough, Reports excessive phlegm production (reports several year history of thickened mucus; denies any recent changes), Denies dyspnea, Denies dyspnea on exertion and Denies wheezing Gastrointestinal Gastrointestinal: Denies abdominal pain, Denies melena, Denies hematochezia, Denies constipation, Denies diarrhea, Reports loose stools (reports ~weekly episodes of loose stools for the last 4+yrs; denies pain), Denies nausea and Denies vomiting Genitourinary Genitourinary: Denies hematuria, Denies dysuria and Denies urinary urgency Musculoskeletal Musculoskeletal: Reports as per HPI, Reports numbness (due to known neuropathy) and Reports tingling Neurologic Neurologic: Denies dizziness, Denies frequent falls, Denies headache(s), Reports numbness (due to known neuropathy) and Reports tingling Psychiatric Psychiatric: Denies anxiety and Denies depression Endocrine Endocrine: Denies palpitations Allergic/Immunologic Allergic/Immunologic: Denies wheezing [facility] Medical History (Updated 03/23/19 @ 08:32 by Patricia Pang) Community acquired pneumonia (Resolved) Pt reported Jan 2018 Coronary atherosclerosis of [place] coronary vessel (Chronic) stent Degenerative arthritis of knee, bilateral (Chronic) Diabetes mellitus (Chronic) Diverticulosis of colon without diverticulitis (Chronic) 03/05 COLONOSCOPY: [facility] Essential hypertension (Chronic) Hyperlipidemia (Chronic) Mixed hearing loss, unspecified (Chronic) Neural hearing loss, unilateral (Resolved 07/25/13) Otitis media (Inactive) Pancreas cyst (Acute) GI at [facility] reported it did not appear cancerous Peripheral neuralgia (Resolved) Peripheral neuropathy (Chronic) both feet are insensate. Multifactorial due to back injury, B12, and DM Polyp of colon, adenomatous (Chronic) hyperplastic Right hand fracture (Acute) ~2004 Pinned Right wrist fracture (Acute) cast Sepsis (Resolved) Pt reported Jan 2018 Vitamin B 12 deficiency (Chronic) Surgical History (Updated 03/23/19 @ 08:32 by Patricia Pang) Appendectomy Colonoscopy - MAC 2003 Fracture, Open Treatment RIGHT TIBIA External hardware ~1962 History of ear surgery (Acute) Right ear History of heart artery stent (Chronic) [facility] [place] Approximately 6+ years ago [employer] I&D 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 JENSEN Social History (Updated 03/23/19 @ 08:35 by Patricia Pang) Smoking/Tobacco Use Status: Former Tobacco Use Drug use: Never Current gender identity: male Do you feel safe in your relationship?: Yes Meds Home Medications and Allergies Home Medications Medication Instructions Recorded Confirmed Type acetaminophen [Tylenol Arthritis] 1 tab PO .4 OR 5 TIMES A DAY PRN 09/02/12 02/18/19 History tab-cap aspirin [Ecotrin] 325 mg PO .QOD HS tab-cap 09/02/12 02/18/19 History cranberry fruit concentrate 450 mg PO DAILY 09/02/12 02/18/19 History garlic 1 cap PO DAILY 09/02/12 02/18/19 History bnklulmuzpb-ifgmvphtb-msj C-Mn 1 tab PO DAILY 09/02/12 02/18/19 History triamcinolone acetonide 1 pedro pablo TOPICAL BID PRN #3 script 09/02/12 02/18/19 History cetirizine 10 mg tablet 10 mg PO DAILY PRN tab-cap 01/06/18 02/18/19 History guaifenesin [Mucinex] 600 mg PO BID #5 tab 02/21/18 02/18/19 Rx alfuzosin 10 mg tablet,extended 10 mg PO DAILY #90 tab 05/04/18 02/18/19 Rx release 24 hr losartan 100 1 tab PO DAILY #90 tab-cap 07/30/18 02/18/19 Rx mg-hydrochlorothiazide 25 mg tablet metformin 1,000 mg tablet 1,000 mg PO BID #180 tab-cap 07/30/18 02/18/19 Rx atorvastatin 20 mg tablet 20 mg PO DAILY #90 tab 09/22/18 02/18/19 Rx amlodipine 10 mg tablet 10 mg PO DAILY #90 tab 10/05/18 02/18/19 Rx metoprolol succinate 100 mg 100 mg PO DAILY #90 tab 10/11/18 02/18/19 Rx tablet,extended release 24 hr vitamin B12 500 mcg-folic acid 400 1 tab PO DAILY #90 tab 11/23/18 02/18/19 Rx mcg tablet blood sugar diagnostic #100 strip 03/22/19 Rx Allergies Allergy/AdvReac Type Severity Reaction Status Date / Time neomycin Allergy Intermediate SKIN RASH Verified 03/23/19 08:38 Sulfa (Sulfonamide Allergy Intermediate SKIN RASH Verified 03/23/19 08:38 Antibiotics) bacitracin Allergy Mild SKIN RASH Verified 03/23/19 08:38 miconazole Allergy Mild RASH Verified 03/23/19 08:38 gramicidin D Allergy Unknown SKIN RASH Verified 03/23/19 08:38 polymyxin B Allergy Unknown SKIN RASH Verified 03/23/19 08:38 Exam Const General: cooperative and no acute distress [facility] Head: normal to inspection, normocephalic and atraumatic Ears: external ears normal General nose exam: external nose normal and no nasal discharge Face and sinus: face symmetric Mouth: oral mucosae normal, lip normal, tongue normal and moist mucous membranes Teeth and gingiva: dentition normal Throat: posterior oropharynx normal Eyes General: appearance normal, both eyes and all related structures Pupils: PERRL EOM: EOM intact bilaterally (inability to converge his left eye as much as contralateral) Neck Neck: trachea midline Carotids: normal carotid upstroke Lymphatic: no lymphadenopathy noted Resp Effort & Inspection: normal respiratory effort and able to speak in complete sentences Auscultation: clear to auscultation bilaterally, no rales, no rhonchi and no wheezes Cardio Heart Sounds: S1 normal and S2 normal Pulses: radial pulses present bilaterally GI Palpation: soft, no hepatosplenomegaly and nontender Auscultation: normal bowel sounds Skin General skin exam: no rashes or lesions noted
[2019-03-23 12:23] LABS: HCT 42.7 % (40.0-50.0); HGB 13.3 g/dL (13.5-17.5); Mean Corp. HGB Concentration 31.1 g/dL (32.0-36.0); Mean Corpuscular Hemoglobin 28.4 pg (27.0-33.0); Mean Platelet Volume 10.2 fL (8.0-11.0); Platelet Count 222 x1000/uL (130-400); RBC 4.69 m/cumm (4.50-6.00); RBC Distribution Width 13.4 % (11.8-14.1); White Blood Cell Count 7.58 k/cumm (4.4-10.8)
[2019-03-23 12:44] LABS: Anion Gap 8.4 mmol/L (3-11); BUN 17 mg/dL (7-18); CO2 29.6 mmol/L (21.0-32.0); CREATININE 0.89 mg/dL (0.70-1.30); Calcium 9.5 mg/dL (8.5-10.1); Chloride 104 mmol/L (98-107); Glucose 93 mg/dL (74-106); Potassium 4.1 mmol/L (3.5-5.1); Sodium 142 mmol/L (136-145)
== END 2019-03-23 09:53 ==
PROVIDERS: PCP Emergency Medicine; Visit Provider Student in an Organized Health Care Education/Training Program
DX: M25.561 Pain in right knee (principal); M17.11 Unilateral primary osteoarthritis, right knee; Z01.818 Encounter for other preprocedural examination; Z01.812 Encounter for preprocedural laboratory examination; I10 Essential (primary) hypertension; E11.9 Type 2 diabetes mellitus without complications; I25.10 Atherosclerotic heart disease of native coronary artery without angina pectoris
CPT/HCPCS: 36415; 80048; 85027; NC

== ENCOUNTER 2019-04-01 10:21 | Inpatient (IN) | payer MEDICARE, SELFPAY ==
[2019-03-23 09:33] VITALS: BP 147/80; PULSE 63; RESP 17; TEMP 36.6; O2SAT 63
--- NOTE | 2019-03-23 18:56 | PDOC.CMPRO ---
- If Service Date Differs Date of service: 03/23/19 Time of Service: 18:56 Care Management Progress Note CM met with Shady during his Pre Op appointment for his R knee replacement scheduled for 04/01/[address] Curry. Shady's brother, Luis Enrique was in the room with him for the appointment. Shady identified friends and members of his mandaen, along with his brother, as supports in the community. 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 He lives in a single level home in [facility] with 2-3 steps to get in the house. He is independent at baseline, but has concerns about being home alone after his surgery. He had a previous surgery for his L knee replacement and stayed at [facility] in [facility] after the surgery for 3-4 days. CM addressed his concerns stating that each experience is unique and the MD will evaluate his progress and make a determination after the surgery regarding how long he will stay. CM will set Shady up with RCT and send a referral to [facility] after his surgery. Shady's PCP is Dr. Sparks, and he has MCR with a supplement from [facility]. He has a FWW and a cane at home from his prior surgery. He has an AD on file. He is not interested in the portal. His brother will drive him to and from [facility] via private vehicle. CM will continue to follow post surgically.
[2019-04-01] VITALS (13 sets, daily range): BP systolic 125–157; BP diastolic 57–76; PULSE 54–64; RESP 14–18; TEMP 36.2–36.7; O2SAT 95–97
[2019-04-01] MEDS: Lactated Ringers 1,000 ML 80 ML IV ×3 (10:55→21:28)
[2019-04-01] MEDS: Celecoxib 200 MG CAP 400 MG PO (11:04)
[2019-04-01] MEDS: Acetaminophen 500 MG TAB 1000 MG PO ×2 (11:05→21:22)
[2019-04-01] MEDS: Gabapentin 300 MG CAP PO ×2 (11:05→21:22)
[2019-04-01] MEDS: Bupivacaine 0.25% Pres-Free 30 ML VIAL ×2 (11:18→13:40)
[2019-04-01] MEDS: ceFAZolin 2 GM/50 ML BAG IVPB (11:51)
--- NOTE | 2019-04-01 13:18 | BONE_PTH ---
PATIENT: Shady Selby LOC: U#:[id number] AGE/SX: 83/M ROOM: [id number] RE04/01/[address]: Orestes Curry MD : 1935 BED: A DIS: 04/03/2019 SPEC #: [id number] RECD: 04/01/19 16:28 STATUS: TESSY REQ #: [id number] ZULMA: 04/01/19 13:[address]: Orestes Curry DEPT: Surgical Specimen RECD BY: Mya Driscoll ENTERED: 04/01/19 16:29 SP TYPE: Bone OTHR DR: Enzo Sparks, DO [facility] Tissues: 1 - BONE BX/CURRETTE NOT PATH FRACTURE Procedures: GROSS AND MICRO LEVEL 5 Comments: [id number]
[2019-04-01] MEDS: Normal Saline 50 ML (13:40)
[2019-04-01] MEDS: Ketorolac 30 MG/ML VIAL (13:40)
--- NOTE | 2019-04-01 14:56 | DI.RAD_ITS ---
EXAM: XR KNEE RT 2V AP,LAT INDICATION: s/p stemmed TKA. COMPARISON: RIGHT KNEE 3 VIEWS from 07/31/2015 XR KNEE RT 2V AP,LAT from 02/07/2019 TECHNIQUE: 2D digital imaging was performed. FINDINGS: The patient is now status post right total knee replacement. The orthopedic hardware appears in good position. The bones are intact. 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 Atherosclerosis is present. Postsurgical changes are seen in the soft tissues. IMPRESSION: No acute abnormality. Right TKR.
--- NOTE | 2019-04-01 15:03 | W.PM.OP ---
Date of service: 04/01/19 Time of Service: 15:03 Operative Note Operative Note DATE OF PROCEDURE: 04/01/19 PRE-OP DIAGNOSIS: Right knee arthritis POST-OP DIAGNOSIS: other (Right knee arthritis with large cystic lesion of the tibia) PROCEDURE: Right Total Knee Arthroplasty with Intraoperative Navigation SURGEON: Orestes Curry GAS REGULATOR REPAIRER: Patricia Pang ANESTHESIA: GETA and regional ESTIMATED BLOOD LOSS: 500 PATHOLOGY: none sent TOURNIQUET TIME: 34 COMPLICATIONS: None Patient was transported to: PACU Patient's condition: stable Implants: 1. Depuy Attune Posterior Stabilized Femoral Component, Size 7 2. Depuy Attune Fixed Platform revision tibial Component, Size 7 with 14 x 35 mm stem 3. Depuy Attune 7 x 6 mm fixed, Stabilized Poly 4. Depuy Attune Patellar Component, Size 38 mm Indications: I have seen Orlando in clinic for symptoms of knee arthritis, confirmed with radiographic findings. Orlando has exhausted nonoperative methods and was having significant limitations in daily function and desired better function and less pain. He had a successful knee replacement of the left knee about 3 years ago. I discussed the technical details of a knee replacement. I explained the risks of the procedure to include, but not limited to, bleeding, infection, pain, stiffness, fracture, damage to nerves and vessels, damage to muscles and tendons, loosening, need for repeat procedure, blood clot and cardiopulmonary demise. Despite these risks, Orlando elected to proceed. Findings: There was significant signs of arthritis throughout the knee. These were focused primarily over the lateral aspect of the knee. The bone quality was quite soft throughout. However, after making the tibial cut there is a notable cyst seen centrally, and slightly eccentric towards the medial side. A small curette was used and immediately the cyst opened up to a large cavity extending all the way down the tibia. There was a fibrocystic component and it was not a hollow cyst. This material was removed with a curved curette as much as possible and this was noted to extend all the way underneath the lateral tibial plateau as well as down the shaft of the tibia. It did not penetrate the tibial cortex. A large portion of this material sent to pathology for evaluation. Without a complete revision system here, I created a bone block in the canal using cut pieces from the knee. I also utilized a short tibial stem. Procedure Description: Orlando was greeted in the preoperative holding area where the correct side was identified and marked. The consent was reviewed with the patient and signed. The history and physical was updated. All questions were answered. Preoperative mediacations were administered: Acetaminophen 1000mg, Celebrex 400mg, Gabapentin 300mg. An adductor canal block was then administered by the anesthesia team in the PACU. Orlando was taken back to the operating room. A general anesthetic was administered. The patient was placed into the supine position on the operating room table. A nonsterile tourniquet was placed high onto the leg but only used for cementing. Posts were placed for positioning during the procedure. All bony prominences were well padded. Prophylactic antibiotics in the form of cefazolin were administered. 1g of Tranxemic Acid was given intravenously within 30 minutes of incision. The right leg was then prepped with Chloraprep and draped in a standard fashion with impervious stockinette and extremity drape with Iodine impregnated skin protection. A timeout to confirm correct identity, side and site, procedure, allergies, anesthesia, and medical concerns was performed. With the knee in some flexion, a midline incision was made overlying the knee. Full thickness skin flaps were raised once the extensor mechanism was encountered. These were raised medially and laterally. Any bleeding was controlled with electrocautery. Once the extensor mechanism was fully exposed, a medial parapatellar arthrotomy was performed in a flexed position. All bleeding from the arthrotomy and the geniculate arteries was coagulated. A medial subperiosteal peel was performed with electrocautery to the midcoronal plane. The fat pad was removed while keeping the patellar tendon protected. The anterior distal femur synovium was removed for later visualization. The ACL and PCL were resected and the anterior horn of the lateral meniscus was transected. The knee was then flexed with the patella everted. Large osteophytes from the tibia were removed. Large osteophytes from the femur were removed. There was some hypoplasia of the lateral femoral condyle and any remnant cartilage of the medial femoral condyle was removed for appropriate thickness. A single starting pin was then placed 1cm anterior to the PCL insertion and the notch in the direction of the femoral head. The OrthoAlign device was applied over the pin. It was oriented to be in line with the epicondylar axis and the trochlear groove. It was then pinned into place. The navigation computer was then turned on and calibrated. The distal femur cut was set at 0 degrees varus/valgus and 2.5 degrees flexion. The distal femur cutting guide then was positioned for a 9mm cut. The distal femur was cut with an oscillating saw while protecting the soft tissues. The tibia was then addressed. The OrthoAlign device was placed over the tibial tubercle and medial tibia and secured into position. Once again, OrthoAlign was calibrated and then set for a 0 degree varus/valgus cut and 3 degrees of posterior slope. With this locked into position, the cut thickness stylus was used to assess cut thickness. A fairly balanced cut was then made of the proximal tibia taking of 7 mm from the least worn side. This was then held in position and pinned into place with 2 additional pins and a cross pin for stability. The medial and lateral collateral ligaments were protected and the cut was performed. With this completed, it was assessed and noted to be of appropriate dimensions. The guide and OrthoAlign was removed. A spacer block was inserted and the knee was brought into extension. The 6mm spacer block provided full extension, without hyperextension and with stability of both the medial and lateral collateral ligaments was assessed. The pins from the femur and the tibia were then removed. There is noted to be a small cyst anteromedially, as well as laterally, and a larger one over the medial?central portion of the proximal tibia. A small curette was used and immediately fell into a larger defect underlying the central medial cyst. Acute curette was used and it reached well down into the tibia as long as I could extend the curette. There was a fibrous fatty type material within the system within the central portion of the tibia. This was curetted and removed. A portion of this was sent to pathology both as fresh specimen as well as in formalin. The cyst extended well underneath the lateral tibial plateau as well as down the shaft of the tibia. There was a small cyst wall and no penetration of the cortex. As much as I could, I removed all the cystic components using a curette and a rongeur. The entire medullary space of the tibia was wide open with no notable cancellus bone. I thoroughly irrigated this canal space with the pulse financial examiner to make sure all cystic contents were removed. The distal femur was then sized. The anterior stylus was placed onto the lateral ridge of the anterior femur. This indicated a size 7 femur. The external rotation of the guide was adjusted to 3 degrees to match the epicondylar axis, perpendicular to Bertie?s line. The 4-in-1 cutting guide was the placed. The posterior medial femur cut was evaluated and appeared of good thickness. The spacer block was inserted underneath the cutting guide and stability was confirmed in 90 degrees of flexion. An kenia wing was used to confirm appropriate position of the anterior cut to avoid notching. This cutting guide was ensured to be flush on the cut surface and then pinned into place with headed pins. While protecting the soft tissues, quad tendon, and collateral ligaments, the anterior and posterior cuts were performed with a saw. The central two pins were removed and the posterior and anterior chamfers were cut next. The notch-cutting guide was placed. This was pinned to lateralize the femoral component as much as possible while keeping it flush on the cut surface. This was then pinned into position. A reciprocating saw was used to make the notch cut. A rasp smoothed the cut surfaces. A trial posterior stabilized femoral component was then inserted, impacted down to the cut surfaces, and the lug holes were drilled. A provisional trial tibial component was placed and the knee was brought through range of motion. There was noted to be excellent extension and flexion. There was no significant instability. The patella was tracking without thumbs. The tibial cut surface was fully exposed. The medial and lateral menisci were removed. The tibia was then sized as a 7. The tibia had been previously marked during trialing to correspond to the center of the tibial component to help with rotation. The trial was aligned to this karma, approximately rotated to the medial 1/3rd of the tibial tubercle. The trial was pinned into place. The tibia was prepared with a reamer and a keel punch. The knee was then brought into extension and the patella was measured as 28mm. Using the patellar clamp and cut guide, this was resected to a flat surface with at least 13mm of thickness remaining. The size 38 patella fit the best. This was oriented and then clamped into position. The lugs were drilled. Attention was turned back to the tibia. I fashioned some of the cut pieces of bone down into the tibia approximately 60 mm or so below the cut surface. These were wedged in position with a bone tamp I filled the space to create a false bottom to prevent cement extravasation down to the ankle. The trial components were removed. The final components, except for the polyethylene were opened on the back table. The periosteal and capsular tissues, especially posteriorly, around the knee were then systematically injected with a periarticular cocktail consisting of 50cc 0.25% Marcaine, 30mg Ketorolac, 20cc of Exparal and 50cc of injectable saline. The tourniquet was then inflated to 275mmHg. The knee was thoroughly irrigated with a pulse lavage and dried. On the back table, with the implants opened, the cement was mixed. 2 batches of medium viscosity cement were prepared with vacuum assistance. After the cement was ready a small amount was placed on to the back side of the tibial component at the keel. A small amount was placed onto the posterior flange of the femur. Cement was manual pressurized and impregnated into the cut surface of the tibia. The tibial component was then inserted into the cut surface and impacted into position. Excess cement was removed and the component was reimpacted. Again, excess cement was removed and our attention was then turned to the femur. The femoral cut surface was once again dried and cement was manually impacted into the cut surface. The femoral component was lined with the lug holes and impacted. Excess cement was removed. It was ensured to be down against the cut surface. The trial polyethylene was then inserted and the leg was brought out into full extension for the duration of the cement curing process, approximately 15min. Cement was lastly manually impacted into the cut surface of the patella and the patellar button was clamped into position and held. During this process attention was turned to the gutters of the knee and for all interfaces for any excess cement. After the cement had finally cured, approximately 20min, the clamp was removed from the patella and the knee was taken through range of motion. A size 6mm polyethylene component provided the best range of motion and stability with less than 2mm gapping with medial and lateral stress and full extension without significant hyperextension. The patella was tracking with a no-thumbs technique. The trial poly was removed and once again the knee was checked for any loose, excess, or errant cement. The tibia was also manipulated to make sure that it was well-seated. I was unable to pry it off of the tibia using a [place] and a bone tamp. The poly component was then inserted and impacted into position after cleaning and drying the tibial tray. The capsule was then reapproximated with a No. 1 Vicryl at multiple locations. The capsule was finally closed with a No. 2 Stratafix, barbed suture. The tourniquet was then released and the arthrotomy appeared watertight without significant bleeding. The second dosing of 1g TXA was started. Deep tissues were then reapproximated with 0 Vicryl and 2-0 Vicryl. The skin was closed with a running 3-0 Monocryl in a subcuticular fashion. This was reinforced with skin glue. A Mepilex silver dressing was applied along with a [id number] MARY ANN wrap. A CryoCuff was applied. Orlando was transferred to the hospital bed without difficulty. Orlando has a good prognosis. Physical therapy will start today and without restrictions, weight-bearing as tolerated. Aspirin 81mg BID will be used for DVT prophylaxis.
[2019-04-01] MEDS: ceFAZolin 1 GM/50 ML BAG IVPB (17:28)
[2019-04-01] MEDS: metFORMIN 500 MG TAB 1000 MG PO (17:28)
[2019-04-01] MEDS: Celecoxib 200 MG CAP PO (21:22)
[2019-04-01] MEDS: amLODIPine 10 MG TAB PO (21:22)
[2019-04-01] MEDS: Aspirin E.C. 81 MG TABEC PO (21:22)
[2019-04-02] MEDS: ceFAZolin 1 GM/50 ML BAG IVPB ×2 (01:32→09:29)
[2019-04-02 04:27] VITALS: BP 128/64; PULSE 60; RESP 16; TEMP 36.4; O2SAT 99
[2019-04-02] MEDS: Celecoxib 200 MG CAP PO ×2 (09:25→20:18)
[2019-04-02] MEDS: Losartan 50 MG TAB 100 MG PO (09:25)
[2019-04-02] MEDS: Acetaminophen 500 MG TAB 1000 MG PO ×3 (09:25→20:18)
[2019-04-02] MEDS: Metoprolol CR 100 MG TABCR PO (09:25)
[2019-04-02] MEDS: hydroCHLOROthiazide 25 MG TAB PO (09:25)
[2019-04-02] MEDS: Aspirin E.C. 81 MG TABEC PO ×2 (09:25→20:17)
[2019-04-02] MEDS: Pantoprazole 40 MG TABCR PO (09:26)
[2019-04-02] MEDS: metFORMIN 500 MG TAB 1000 MG PO ×2 (09:26→16:31)
[2019-04-02] MEDS: traMADol 50 MG TAB PO ×2 (09:29→13:51)
[2019-04-02 09:53] VITALS: BP 133/66; PULSE 94; RESP 16; TEMP 35.7; O2SAT 96
--- NOTE | 2019-04-02 11:34 | IN_ITS ---
Date of service: 04/02/19 Time of Service: 09:30 PT Notes Visit Reasons: RIGHT KNEE DJD Inpatient Physical Therapy Evaluation Date: April 02, 2019 Referring Doctor: Dr. Orestes Curry PT Orders: PT CONSULT: Evaluate and treat status post right total knee replacement Precautions: Fall risk Patient Profile/Admitting Diagnosis: Patient is an 83-year-old male referred for evaluation treatment planning status post right total knee replacement on April 01, 2019. 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 Multifactorial due to back injury, B12, and DM Polyp of colon, adenomatous (Chronic) hyperplastic Right hand fracture (Acute) ~2004 Pinned Right wrist fracture (Acute) cast Sepsis (Resolved) Pt reported Jan 2018 Vitamin B 12 deficiency (Chronic) Surgical History (Updated 03/23/19 @ 08:32 by Patricia Pang) Appendectomy Colonoscopy - MAC 2003 Fracture, Open Treatment RIGHT TIBIA External hardware ~1962 History of ear surgery (Acute) Right ear History of heart artery stent (Chronic) [facility] Approximately 6+ years ago MASTOID INCISION I&D 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 JENSEN Social History/Home Situation: [] Current Functional Limitations: [] Equipment Owned/DME: [] Subjective: Patient states that he is holding up well. Is having less pain with his total knee replacement compared to his prior one in 2016. Is pleased with his outcome so far. Rates his pain 3/10 at time of initial evaluation. Has not been out of bed yet. Has met with Dr. Curry earlier this morning and was told he was likely to be discharged tomorrow 04/03/2019. States that he is fairly comfortable and has been working some light range of motion exercises while laying in his bed. Patient states that he was participating in an independent strengthening program at the [place] facility of [facility] Was exercising up to 2 days prior to his surgery. Objective: General Observation: IV dorsum of right hand, supplemental oxygen 1.5 L via nasal cannula. Catheter was recently removed within the last hour. He has an Avery wrap around the right knee. Has mechanical compression sock for left lower extremity which was removed for ambulation activity. Mental Status: Alert and oriented x3 Pain: 3/10 at time of initial evaluation with pain located in the superior lateral aspect of the right mcbride Vital Signs: Refer to nursing ROM: Right Upper Extremity: Within functional limits Left Upper Extremity: Within functional limits Right Lower Extremity: Hip range of motion within functional limits flexion and abduction. Knee flexion 75 degrees active 90 active assisted, extension -10 degrees active 0 degrees active assisted following some light gentle distraction techniques. Ankle range of motion within normal limits Left Lower Extremity: Hip knee and ankle within normal limits Strength: Right Upper Extremity: 4+/5 throughout Left Upper Extremity: 4+/5 throughout Right Lower Extremity: Patient performs a straight leg raise with 5 degree lag and minimal pain per his report. Hip flexion 4-/5. Hip abduction 4-/5. Hamstring 4-/5. Ankle dorsiflexion plantarflexion 4/5. Left Lower Extremity: 4+/5 throughout. Sensation: Within normal limits throughout left lower extremity. Patient reported sensation intact to light touch through the digits of toes 1 through 5 on right foot. Good capillary refill. Bed Mobility/Transfers: Supine to sit: Head of bed 45 degrees minimal assist x1 Sit to stand: Min assist x1 to front wheeled walker Stand to sit: Contact-guard x1 from front wheeled walker to chair. Verbal cues offered for proper hand placement and foot position when sitting into a chair. Bed mobility: Independent Gait: Ambulated 120 feet with contact-guard with front wheeled walker. Verbal cues for proper heel strike at initial contact and toe off at terminal stance. Decreased knee flexion during swing phase. Balance: Static Sitting: Good Dynamic Sitting: Good Static Standing: Fair Dynamic Standing: Fair Special Tests: Mobility Limitations Standardized Measure [facility] AM-PAC 6 clicks Basic Mobility Inpatient Short Form: Raw Score: 19 Standardized Score: 45.44 CMS Score: 41.77 CMS Modifier:CK Informed Consent/Education: Patient instructed in purpose of PT consult and plan of care. Patient also educated in heel slides, quad sets and straight leg raises to be done every 3-5 times per day. Also educated importance of maintaining extension to avoid resting pillow under knee. Upon completion of evaluation he was repositioned into bed with Cryo/Cuff reestablished and compression device on left lower extremity. Assessment: Patient is a 83 year old male] referred to physical therapy services with the diagnosis of status post right total knee replacement. Patient presents with clinical signs and symptoms consistent with this diagnosis, as demonstrated by the following impairment level findings: Motor function, muscle performance, range of motion and weakness. Impairments are contributing to the following functional limitations: AMPAC score 41.77%. Patient actually held up well with his ambulation with minimal complaints of pain. Functional limitations consist of ambulation without assistive device, stair negotiation, self transfer mobility. Patient is assessed as a [] Low 32139 x Moderate 70640 [] High 27960 complexity based on the following: History: See above Examination: See above Presentation: Evolving Decision Makin.77% AM-PAC Goals: Goals X1 week 1. Supine-Sit independent 2. Sit-Supine independent 3. Sit-Stand standby assist to front wheeled walker 4. Stand-Sit standby assist from front wheeled walker 5. Bed-Chair standby assist with front wheeled walker 6. Chair-Bed standby assist with front wheel walker 7. Gait greater than 200 feet with front wheeled walker standby assist 8. Stairs 3 stairs with railing 9. Independent with home exercise program Plan of Care/Treatment Plan: 1-2x/day, 7 days/week x 1 week. Plan of care has been reviewed with the DIRECTOR OF STRATEGIC INITIATIVES providing the service under Physical Therapy direction. Initiate Physical Therapy intervention for strengthening, bed mobility, transfers, gait, stairs, balance training, use of assistive device. DISCHARGE RECOMMENDATIONS: Home health PT TREATMENT CODE/TIME: 53169. 45 minutes direct one-on-one care 9 30-10 15. Disclaimer: This note was created using [employer] voice recognition software. It w as reviewed for major content. However, there may be multiple small discrepancies and errors due to the voice recognition aspects of the software. Maxwell Hobbs PT, DPT
--- NOTE | 2019-04-02 11:56 | PDOC.CMIN ---
- If Service Date Differs Date of service: 04/02/19 Time of Service: 11:56 Care Management Initial Assess REASON FOR HOSPITALIZATION:: Right knee DJD PAST MEDICAL HISTORY/PAST SURGICAL HISTORY:: Medical History: Community acquired pneumonia (Resolved) - Pt reported Jan 2018, Coronary atherosclerosis of [place] coronary vessel (Chronic) - stent, Degenerative arthritis of knee, bilateral (Chronic), Diabetes mellitus (Chronic), Diverticulosis of colon without diverticulitis (Chronic) - 03/05 COLONOSCOPY: DURHAM DIVERTICULOSIS, Essential hypertension (Chronic),. Hyperlipidemia (Chronic), Mixed hearing loss, unspecified (Chronic), Neural hearing loss, unilateral (Resolved 07/25/13), Otitis media (Inactive), Pancreas cyst (Acute) - GI at [facility] reported it did not appear cancerous, Peripheral neuralgia (Resolved), Peripheral neuropathy (Chronic) - both feet are insensate. Multifactorial due to back injury, B12, and DM, Polyp of colon, adenomatous (Chronic) - hyperplastic, Right hand fracture (Acute) ~2004. Pinned, Right wrist fracture (Acute) - cast, Sepsis (Resolved) - Pt reported Jan 2018, and Vitamin B 12 deficiency (Chronic). 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 JENSEN. PREVIOUS FUNCTIONAL STATUS/SOCIAL/FAMILY SUPPORTS:: Shady lives alone in [facility]. He has been retired since the age of 71 but has remained active. 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 He names his brother, [id number], and several members from his jehovah's witness as supports. Shady drives and is independent in his ADLs at baseline. CURRENT FUNCTIONAL STATUS:: Shady is lying in bed watching television when CM comes to meet with him. He is pleasant and readily engages in conversation. He shares he might discharge home tomorrow and states he had his left knee replaced approximately three years ago, so he knows what to do once he is home. ADVANCE DIRECTIVES:: None on file. Has patient been provided with information about the portal?: Yes Did the patient sign up for the portal?: No (Pt not interested) CODE STATUS:: Full Code INSURANCE COVERAGE / FINANCIAL ISSUES:: AARP [employer] and Medicare. CURRENT HOME/COMMUNITY SERVICES/EQUIPMENT:: Shady reports he has a FWW and cryo cuff at home but no community services currently. PRIMARY CARE PHYSICIAN:: Enzo Sparks MD ([facility]) POTENTIAL DISCHARGE NEEDS:: Follow-up with Dr. Curry, PT on an outpatient basis, and discharge plan of care. PATIENT/FAMILY EDUCATION NEEDS:: Review discharge plan, limitations, follow-up plan, including Ask Me Three and self-management. ANTICIPATED BARRIERS TO DISCHARGE:: None. TRANSPORTATION:: Shady's brother and qromtv-nd-hkl will transport him home via private vehicle when ready. PLAN:: Shady will be discharged home when medically cleared by provider. Anticipate follow-up appointment with Dr. Curry and physical therapy on an outpatient basis with [facility] post-discharge. Shady reports his gmqvdi-fn-cgj and jehovah's witness members will assist with meal preparation and transportation to appointments as needed. His brother and ciweyc-oh-cpd will transport him home via private vehicle upon discharge.
--- NOTE | 2019-04-02 14:00 | PHARADMIT ---
Admission Pharmacy Clinical Review RIGHT KNEE DJD Code Status Full Code Current Weight Wgt-92.5 kg Renally Cleared and Narrow Therapeutic Index Meds CrCl~69 mL/min Meds-OK QTc Value / Action Taken none current BP Control, Fever BP-133/66 Tmax-36.6C Electrolytes reviewed na DVT Prophylaxis ASA-ec, Opiate Usage / Scheduled Bowel Regimen Ordered Yes Yes Plt/SCr for Heparin / Enoxaparin na INR for Warfarin na H/H stable, WBC/Bands na Antibiotic appropriateness Cefazolin Cultures and Sensitivities none Surgical ABX d/c within 24 hr Yes DM control / Insulin Dosing FSBS- 154 Metformin, Heart Failure (Check EF%) (MARY ANN's, B-Block, Diuretics) Norvasc, HCTZ, Losartan, Toprol-XL, IV to PO Switch No Home Meds Reviewed Yes Home Meds Not Ordered OsteoBioflex, TAC, Comments Patient's own Alfuzosin (awaiting)
--- NOTE | 2019-04-02 14:13 | W.PM.PROGNOT ---
Date of Service Date of service: 04/02/19 Time of Service: 09:13 Assessment and Plan Assessment and plan (1) Arthritis of knee, right: Status: Chronic Assessment and plan: Orlando is postop day #1 status post right knee replacement. I spent some time going over the incidental finding of a large tibial bone cyst with Orlando. I discussed how he treated with bone block, stemmed implant, and cement. I am not going to change his weightbearing status. He may weight-bear as tolerated. He will with physical therapy. We will use aspirin 81 mg twice daily for DVT prophylaxis. (2) Bone cyst of right tibia: Status: Acute Subjective Subjective Interval history since last seen: Orlando reports been doing well. His pain is controlled. He still complains of some pain over the lateral aspect of the right knee and leg. He has been working on some range of motion exercises of the bed. He denies chest pain or shortness of breath. Exam Narrative Exam Narrative: Sitting up in the bed. Eating breakfast. Alert and oriented x3. Evaluation of the right knee shows a clean dry and intact dressing. Range of motion is from 5-85. Sensation intact light touch over the deep and superficial peroneal nerve and tibial nerve. The foot is warm and well-perfused. Objective Objective Clinical Data: Vital Signs Temperature 35.7 C L 04/02/19 09:53 Temperature Source Tympanic 04/02/19 09:53 Pulse 94 H 04/02/19 09:53 Pulse Rhythm Regular 04/02/19 09:37 Respiratory Rate 16 04/02/19 09:53 Respiratory Effort 04/02/19 09:37 Respiratory Depth Normal 04/02/19 09:37 Respiratory Pattern Normal 04/02/19 09:37 Blood Pressure 133/66 04/02/19 09:53 Pulse Oximetry 96 04/02/19 09:53 Respiratory End-tidal CO2 33 04/01/19 15:40 Oxygen Delivery Method Nasal Cannula 04/02/19 09:53 Oxygen Flow Rate 1 04/02/19 09:53 Pain Level 4 04/02/19 13:51 Intake & Output 04/01/19 04/02/19 04/02/19 23:59 11:59 23:59 Intake Total 2157.333 / 2157.333 1350 / 1350 Output Total 1550 / 1550 1650 / 1650 Balance 607.333 / 607.333 -300 / -300 Weight 92.533 kg Intake: IV 1857.333 / 1857.333 850 / 850 Oral 300 / 300 500 / 500 Output: Urine 1050 / 1050 1650 / 1650 Estimated Blood Loss 500 / 500 Other: Urine Color Yellow Yellow Urine Appearance Clear Clear Emesis Description None Objective Narrative Objective Narrative: X-ray of the right knee performed after the surgery yesterday shows a well-placed prosthesis with bone in the proximal canal and a stem tibial component with surrounding cement.
[2019-04-02 15:38] VITALS: BP 150/72; PULSE 62; RESP 16; TEMP 36.3; O2SAT 97
[2019-04-02 16:03] VITALS: BP 137/74; PULSE 58; RESP 16; TEMP 36.5; O2SAT 97
[2019-04-02] MEDS: Atorvastatin 20 MG TAB PO (20:18)
[2019-04-02 20:21] VITALS: BP 147/75; PULSE 57; RESP 18; TEMP 36.4; O2SAT 97
[2019-04-02] MEDS: Gabapentin 300 MG CAP PO (22:49)
[2019-04-02] MEDS: amLODIPine 10 MG TAB PO (22:49)
[2019-04-02] MEDS: Docusate Sodium 100 MG CAP PO (22:51)
[2019-04-02 23:15] VITALS: BP 127/64; PULSE 55; RESP 16; TEMP 36.6; O2SAT 95
[2019-04-03] MEDS: traMADol 50 MG TAB PO ×2 (02:00→05:54)
[2019-04-03 04:59] VITALS: BP 145/69; PULSE 55; RESP 16; TEMP 36.2; O2SAT 94
[2019-04-03 07:42] VITALS: BP 152/70; PULSE 55; RESP 18; TEMP 36.6; O2SAT 92
[2019-04-03] MEDS: Celecoxib 200 MG CAP PO (08:59)
[2019-04-03] MEDS: Acetaminophen 500 MG TAB 1000 MG PO (08:59)
[2019-04-03] MEDS: Losartan 50 MG TAB 100 MG PO (08:59)
[2019-04-03] MEDS: Aspirin E.C. 81 MG TABEC PO (08:59)
[2019-04-03] MEDS: Pantoprazole 40 MG TABCR PO (09:00)
[2019-04-03] MEDS: hydroCHLOROthiazide 25 MG TAB PO (09:00)
[2019-04-03] MEDS: metFORMIN 500 MG TAB 1000 MG PO (09:00)
[2019-04-03] MEDS: Metoprolol CR 100 MG TABCR PO (09:00)
--- NOTE | 2019-04-03 11:22 | W.PM.DS.N ---
Date of service: 04/03/19 Time of Service: 11:22 DS: Diagnosis Discharge Diagnosis (1) Arthritis of knee, right: Status: Chronic (2) Bone cyst of right tibia: Status: Acute Discharge Plan Disposition Patient Disposition: HOME W/HOME HEALTH SERVICE Condition: Good Discharge Details Reason For Visit: RIGHT KNEE DJD Admit Date/Time: 04/01/19 10:21 Admit Provider: Orestes Curry Attending Provider: Orestes Curry Primary Care Provider: Enzo Sparks Hospital Course Hospital Course: Patient was admitted to the medical/surgical floor following the procedure. It was tolerated well without any notable medical, surgical, or anesthetic complications. Mobilization began postoperatively. The danielson catheter was removed and voiding spontaneously. Vitals were stable. Physical therapy worked with the patient and was cleared for discharge home. No acute medical issues. Home Meds and New Rx's Prescriptions: New acetaminophen 650 mg tablet extended release 650 mg PO Q6H PRN PRN (Reason: pain) Qty: 60 RF: 6 aspirin 81 mg tablet,delayed release (DR/EC) 81 mg PO BID Qty: 60 RF: 0 pantoprazole 40 mg tablet,delayed release (DR/EC) 40 mg PO DAILY Qty: 30 RF: 0 tramadol 50 mg tablet 50 - 100 mg PO Q6H PRN (Reason: pain) Qty: 12 RF: 0 ibuprofen 600 mg tablet 600 mg PO TID PRNQty: 90 RF: 3 Continued triamcinolone acetonide 15 GM ointment 1 pedro pablo Topical BID PRNQty: 3 RF: 4 garlic 1 EACH capsule 1 cap PO DAILY RF: 0 cranberry fruit concentrate 450 MG capsule 450 mg PO DAILY RF: 0 cetirizine [Zyrtec] 10 mg tablet 10 mg PO DAILY PRNRF: 0 losartan-hydrochlorothiazide [Hyzaar] 100-25 mg tablet 1 tab PO DAILY Qty: 90 RF: 4 metformin [Glucophage] 1,000 mg tablet 1,000 mg PO BID Qty: 180 RF: 3 atorvastatin [Lipitor] 20 mg tablet 20 mg PO DAILY Qty: 90 RF: 3 metoprolol succinate 100 mg tablet extended release 24 hr 100 mg PO DAILY Qty: 90 RF: 3 vitamin E99-wordc acid 500-400 mcg tablet 1 tab PO DAILY Qty: 90 RF: 3 alfuzosin 10 mg tablet extended release 24 hr 10 mg PO DAILY Qty: 90 RF: 3 guaifenesin [Mucinex] 600 mg Tablet Extended Release 12hr 600 mg PO BID Qty: 5 RF: 0 Osteo Bi-Flex Triple Strength 750 mg-644 mg- 30 mg-1 mg Tablet 1 tab PO DAILY RF: 0 amlodipine 10 mg tablet 10 mg PO HS RF: 0 Discontinued acetaminophen [Tylenol Arthritis] 650 MG tablet extended release 1 tab PO .4 OR 5 TIMES A DAY PRNRF: 0 No Action (DME) OneTouch Ultra Test Strip 1 strip Miscellaneous DAILY Qty: 100 RF: 6 Discharge Instructions Additional Instructions: Dr. Curry?s Total Knee Discharge Instructions Activity: The most important activity is to walk. You should try to take short walks a few times a day. It is important that when resting you work on keeping the knee straight. Avoid putting a pillow behind the knee as this will encourage flexion. Work on range of motion exercises as provided by Physical Therapy. - Start outpatient physical therapy within 2 weeks. - You should wear the LLOYD hose on both legs for 2 weeks. Dressing: Keep the surgical dressing in place for at least one week. After the first week it may be removed and replace with light gauze and tape or nothing. It may get wet after 3 days but avoid soaking the dressing. If it gets wet, just lightly pat dry. Medications: - You should take Tylenol and anti-inflammatory Ibuprofen as your primary pain control medications - You have been prescribed a stronger pain medication Tramadol for breakthrough pain, take as needed as prescribed. - You have also been prescribed a stomach acid reduction agent Pantoprozole to help reduce stomach acid and reflux. - You will be taking Aspirin 81mg twice a day for DVT prevention unless instructed otherwise. - If you have constipation you should take Colace or Miralax (both tawr-kuj-noypjyc). It takes most people 3-4 days to have a bowel movement. Follow-up: 2 weeks Referrals: Orestes Curry MD [ [facility] STAFF PHYSICIAN] - [facility] [Provider Group] (s/p R TKA) Activity:: Activity as Tolerated Equipment/Supplies:: Walker Diet:: As Tolerated Discharge Orders Discharge Orders: Discharge Order (Routine); Ordered 04/03/19 Ordered By: Orestes Curry DS: Summary Status at Discharge Functional status at discharge: uses cane/walker Overall status at discharge: patient is progressing back to baseline Mental Status: mental status grossly normal Speech and Movement: speech and movement normal Mood: congruent mood Affect: normal affect Exam Psych Mental Status: mental status grossly normal Speech and Movement: speech and movement normal Mood: congruent mood Affect: normal affect DS: Data Vitals/I&O Vitals and I&O: Vital Signs Temperature 36.6 C 04/03/19 07:42 Temperature Source Temporal Artery Scan 04/03/19 07:42 Pulse 55 L 04/03/19 07:42 Pulse Rhythm Regular 04/03/19 09:15 Respiratory Rate 18 04/03/19 07:42 Respiratory Effort 04/03/19 09:15 Respiratory Depth Normal 04/03/19 09:15 Respiratory Pattern Normal 04/03/19 09:15 Blood Pressure 152/70 H 04/03/19 07:42 Pulse Oximetry 92 L 04/03/19 07:42 Respiratory End-tidal CO2 33 04/01/19 15:40 Oxygen Delivery Method Room Air 04/03/19 07:42 Oxygen Flow Rate 0 04/03/19 07:42 Pain Level 4 04/03/19 09:15 Comment 04/03/19 04:59 Intake & Output 04/02/19 04/02/19 04/03/19 11:59 23:59 11:59 Intake Total 1350 / 1350 840 / 840 Output Total 1650 / 2600 950 / 2600 2049 Balance -300 / -1250 -950 / -1250 -1210 / -1210 Intake: IV 850 / 850 Oral 500 / 500 840 / 840 Output: Urine 1650 / 2600 950 / 2600 2049 Other: Urine Color Yellow Yellow Yellow Urine Appearance Clear Clear Clear Urine Odor Normal Normal Comment From total of 2 voids in urinal Voiding Methods Urinal Urinal PFSH Medical History Community acquired pneumonia (Resolved) Pt reported Jan 2018 Coronary atherosclerosis of [place] coronary vessel (Chronic) stent Degenerative arthritis of knee, bilateral (Chronic) Diabetes mellitus (Chronic) Diverticulosis of colon without diverticulitis (Chronic) 03/05 COLONOSCOPY: DURHAM DIVERTICULOSIS Essential hypertension (Chronic) Hyperlipidemia (Chronic) Mixed hearing loss, unspecified (Chronic) Neural hearing loss, unilateral (Resolved 07/25/13) Otitis media (Inactive) Pancreas cyst (Acute) GI at [facility] reported it did not appear cancerous Peripheral neuralgia (Resolved) Peripheral neuropathy (Chronic) both feet are insensate. Multifactorial due to back injury, B12, and DM Polyp of colon, adenomatous (Chronic) hyperplastic Right hand fracture (Acute) ~2004 Pinned Right wrist fracture (Acute) cast Sepsis (Resolved) Pt reported Jan 2018 Vitamin B 12 deficiency (Chronic) Surgical History Appendectomy Colonoscopy - [facility] 2003 Fracture, Open Treatment RIGHT TIBIA External hardware ~1962 History of ear surgery (Acute) Right ear History of heart artery stent (Chronic) [facility] [place] 6+ years ago Hx of spinal fusion (Acute) 1963 Lower spine, had a herniated disk that they removed per pt MASTOID INCISION I&D 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 JENSEN Social History Smoking/Tobacco Use Status: Former Tobacco Use Tobacco: How many years used: 20 Alcohol Intake: current Alcohol Intake frequency: holidays/special occasions only Alcohol type: hard liquor Drug use: Never Current gender identity: male Do you feel safe in your relationship?: Yes
[2019-04-03 12:08] VITALS: BP 150/70; PULSE 53; RESP 18; TEMP 36.6; O2SAT 95
--- NOTE | 2019-04-03 12:18 | PT.INTREAT ---
Date of service: 04/03/19 Time of Service: 12:18 PT Notes Visit Reasons: RIGHT KNEE DJD Inpatient Physical Therapy Treatment Note [facility] Date: 04/03/2019 PRECAUTIONS: Fall, WBAT R SUBJECTIVE: Orlando reports he is feeling good today, although reports that his right knee is feeling quite stiff this morning. OBJECTIVE: PAIN: Patient complained of right knee stiffness with gait training and there ex BED MOBILITY/TRANSFERS Supine-sit: I with HOB flat Sit-stand: S Stand-sit: S GAIT Assistive Device: FWW Weight bearing: WBAT R Assist: SBA-S Distance: 75' x2 Deviation: Seated rest x1 THEREX: Patient completed a lower extremity strengthening and stabilization program, in a supine position, as per flow sheet. Patient ends with cryocuff to right knee. STAIRS: Up/down 3?4 and 2?6 using B rails and a step-to pattern with supervision, up/down 3?4 and 2?6 using one rail/SPC and a step to pattern with supervision. ASSESSMENT: Patient tolerated session with complaints of right knee stiffness, which he reports decreased throughout session. He was able to tolerate the addition of stair training requiring supervision only. PLAN: As per primary PT TREATMENT CODE/TIME: 35 minutes; 62052, [id number]
--- NOTE | 2019-04-03 13:44 | PDOC.CMDIS ---
- If Service Date Differs Date of service: 04/03/19 Time of Service: 13:44 LACE Index Scoring Tool - Questions: Length of Stay (in days): 2 Acuity (Admit via E.D.?): No Comorbidities: Cerebrovascular Disease, Diabetes w/o Complication E.D. Visits: 1 - Answers: Total Score: 5 Risk of Readmission: Low Risk Care Management Discharge Reason for Hospitalization: Right knee DJD Discharge Plan: Shady is discharged home. He has a FWW and Cryo patch at home, so has all needed DME. He will follow up with Dr. Curry, physical therapy with [facility] on an outpatient basis, and his plan of care as directed, including recommendations and activity limitations. His brother and xrbvph-au-qia are transporting him home via private vehicle. Patient/Family Education Needs: Nursing will review discharge instructions with Shady re medications and activity level. Shady is able to verbalize reason for hospitalization and how to manage care at home. Services Needed at Discharge: Physical Therapy ([facility] on outpatient basis)
--- NOTE | 2019-04-06 09:58 | PT.INDS ---
Date of service: 04/06/19 Time of Service: 09:58 PT Notes Visit Reasons: RIGHT KNEE DJD Inpatient Physical Therapy Discharge Summary Dates: 04/06/2019 Dates of Service: 04/02/2019 only This is a clinical summary of care provided on the duration of dates listed above. No charge was made in the completion of this documentation. Referring Doctor: Dr. Orestes Curry PT Orders: PT CONSULT: Evaluate and treat status post right total knee replacement Precautions: Fall risk Patient Profile/Admitting Diagnosis: Patient is an 83-year-old male referred for evaluation treatment planning status post right total knee replacement on April 01, 2019. PMHX: Medical History (Updated 03/23/19 @ 08:32 by Patricia Pang) Community acquired pneumonia (Resolved) Pt reported Jan 2018 Coronary atherosclerosis of [place] coronary vessel (Chronic) stent Degenerative arthritis of knee, bilateral (Chronic) Diabetes mellitus (Chronic) Diverticulosis of colon without diverticulitis (Chronic) 03/05 COLONOSCOPY: DURHAM DIVERTICULOSIS Essential hypertension (Chronic) Hyperlipidemia (Chronic) Mixed hearing loss, unspecified (Chronic) Neural hearing loss, unilateral (Resolved 07/25/13) Otitis media (Inactive) Pancreas cyst (Acute) GI at [facility] reported it did not appear cancerous Peripheral neuralgia (Resolved) Peripheral neuropathy (Chronic) both feet are insensate. 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 JENSEN Social History/Home Situation: Patient lives gerald single-level home with 2 steps to enter through the garage without rails. Equipment Owned/DME: RENEE Subjective: NT. Objective: General Observation: IV dorsum of right hand, supplemental oxygen 1.5 L via nasal cannula. Catheter was recently removed within the last hour. He has an Avery wrap around the right knee. Has mechanical compression sock for left lower extremity which was removed for ambulation activity. Mental Status: Alert and oriented x3 Pain: 3/10 at time of initial evaluation with pain located in the superior lateral aspect of the right mcbride Vital Signs: Refer to nursing ROM: Right Upper Extremity: Within functional limits Left Upper Extremity: Within functional limits Right Lower Extremity: Hip range of motion within functional limits flexion and abduction. Knee flexion 75 degrees active 90 active assisted, extension -10 degrees active 0 degrees active assisted following some light gentle distraction techniques. Ankle range of motion within normal limits Left Lower Extremity: Hip knee and ankle within normal limits Strength: Right Upper Extremity: 4+/5 throughout Left Upper Extremity: 4+/5 throughout Right Lower Extremity: Patient performs a straight leg raise with 5 degree lag and minimal pain per his report. Hip flexion 4-/5. Hip abduction 4-/5. Hamstring 4-/5. Ankle dorsiflexion plantarflexion 4/5. Left Lower Extremity: 4+/5 throughout. Bed Mobility/Transfers: Supine to sit: Independent Sit to stand: Independent Stand to sit: Supervision Bed mobility: Supervision Gait: Ambulated 75 feet x 2 feet with SBA with front wheeled walker. Patient also tolerated up-and-down three 4 inch steps and two 6 inch steps while holding onto bilateral rails using step to gait pattern requiring supervision assist. Another trial of the same number of steps was done with the patient holding onto one rail and using a single-point cane with the other hand requiring supervision assist and minimal verbal cues for correct. Balance: Static Sitting: Good Dynamic Sitting: Good Static Standing: Fair Dynamic Standing: Fair Assessment: Patient is a 83 year old male] referred to physical therapy services with the diagnosis of status post right total knee replacement. Patient presents with clinical signs and symptoms consistent with this diagnosis, as demonstrated by the following impairment level findings: Motor function, muscle performance, range of motion and weakness. Patient demonstrated significant improvement in functional mobility performance during this episode of care. Goals: Goals X1 week 1. Supine-Sit independent MET 2. Sit-Supine independent MET 3. Sit-Stand standby assist to front wheeled walker MET 4. Stand-Sit standby assist from front wheeled walker MET 5. Bed-Chair standby assist with front wheeled walker MET 6. Chair-Bed standby assist with front wheel walker MET 7. Gait greater than 200 feet with front wheeled walker standby assist NOT MET 8. Stairs 3 stairs with railing NOT MET 9. Independent with home exercise program NOT MET DISCHARGE RECOMMENDATIONS: Home health PT TREATMENT CODE/TIME: NC. Thank you very much for this referral. Leslye Rutledge PT, DPT, CLT [facility] Inpatient PT at [facility]
== END 2019-04-03 13:01 | disposition home health service (06) | DRG 470 ==
LOC: PDS 12:38 → MS 16:32
PROVIDERS: Admitting Provider Student in an Organized Health Care Education/Training Program; PCP Emergency Medicine; Referring Provider Internal Medicine; Visit Provider Student in an Organized Health Care Education/Training Program
PROC: 0SRC0J9 Replacement of Right Knee Joint with Synthetic Substitute, Cemented, Open Approach (ICD-10-PCS; CPT 27447; principal; 2019-04-01 12:00)
DX: M17.11 Unilateral primary osteoarthritis, right knee (principal); M85.661 Other cyst of bone, right lower leg; Z96.653 Presence of artificial knee joint, bilateral; M85.461 Solitary bone cyst, right tibia and fibula; I10 Essential (primary) hypertension; E78.5 Hyperlipidemia, unspecified; E11.42 Type 2 diabetes mellitus with diabetic polyneuropathy; Z79.84 Long term (current) use of oral hypoglycemic drugs
CPT/HCPCS: 27447; 20985; 76942; 97110; 97162; 97530; NC; 73560; 88304; 88307; J0690; J1100; J1885; J2405; J3010

== ENCOUNTER 2019-04-18 12:54 | Outpatient (CLI) | payer MEDICARE, SELFPAY ==
--- NOTE | 2019-04-18 13:06 | DI.RAD_ITS ---
EXAM: XR STANDING ALIGNMENT CLINICAL HISTORY: 1ST POST OP R TKA COMPARISON: XR STANDING ALIGNMENT from 02/07/2019 FINDINGS: AP views of both lower extremities were obtained for leg length determination/alignment. There are m oderate degenerative changes of both hips. There are total knee joint replacements in position bilat erally. 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 Old healed right tibiofibular fracture noted. Degenerative changes noted at t he joints of the right ankle.
--- NOTE | 2019-04-18 13:09 | DI.RAD_ITS ---
EXAM: XR KNEE RT 1V CLINICAL HISTORY: 1ST POST OP R TKA TECHNIQUE: COMPARISON: No exams were available for comparison FINDINGS: Single lateral view of the knee was obtained and shows a total knee joint replacement in position. T he components appear well seated. No other bony abnormality seen. IMPRESSION:
== END 2019-04-18 13:14 ==
PROVIDERS: PCP Emergency Medicine; Referring Provider Emergency Medicine; Visit Provider Student in an Organized Health Care Education/Training Program
DX: Z96.651 Presence of right artificial knee joint (principal); Z47.1 Aftercare following joint replacement surgery; M16.0 Bilateral primary osteoarthritis of hip; M19.071 Primary osteoarthritis, right ankle and foot; M85.661 Other cyst of bone, right lower leg; M17.11 Unilateral primary osteoarthritis, right knee
CPT/HCPCS: 73560; 77073

== ENCOUNTER 2019-05-16 16:04 | Outpatient (CLI) | payer MEDICARE, SELFPAY ==
--- NOTE | 2019-05-16 15:33 | DI.RAD_ITS ---
EXAM: XR KNEE RT 2V AP,LAT CLINICAL HISTORY: s/p right TKA TECHNIQUE: COMPARISON: XR KNEE RT 1V from 04/18/2019 FINDINGS: Two views were obtained. There is a total knee joint replacement in position. The components appear well seated. No other significant bony abnormality seen. IMPRESSION:
== END 2019-05-16 16:24 ==
PROVIDERS: PCP Emergency Medicine; Referring Provider Emergency Medicine; Visit Provider Student in an Organized Health Care Education/Training Program
DX: Z96.651 Presence of right artificial knee joint (principal); Z47.1 Aftercare following joint replacement surgery; M85.661 Other cyst of bone, right lower leg
CPT/HCPCS: 73560

== ENCOUNTER 2019-05-31 11:21 | Outpatient (CLI) | payer MEDICARE, SELFPAY ==
[2019-05-31 13:09] LABS: Hemoglobin A1C 6.6 % (3.8-5.6)
== END 2019-05-31 11:41 ==
PROVIDERS: PCP Emergency Medicine; Visit Provider Emergency Medicine
DX: E11.9 Type 2 diabetes mellitus without complications (principal)
CPT/HCPCS: 36415; 83036

== ENCOUNTER 2019-06-21 08:21 | Day surgery (SDC) | payer MEDICARE, SELFPAY ==
--- NOTE | 2019-06-20 21:44 | W.PREOPHP ---
Assessment and Plan Assessment and plan (1) Status post total right knee replacement: Status: Chronic Assessment and plan: Plan: Educated patient on surgery covering surgical technique, recovery process, benefits and risks including but not limited to risk of fracture, infection, blood clot, damage to soft tissue/blood vessels/nerves in detail. After discussion patient gives verbal understanding of risks and elects to proceed with scheduling surgery. Patient had opportunity to have questions answered to their satisfaction. They will contact office if issues arise. Patient will continue to be scheduled for right knee manipulation status post right total knee replacement with Dr. Curry. History of Present Illness Narrative: Mr. Selby is an 83-year-old male who presents to for right knee manipulation. 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 Unfortunately, patient has continued to have restricted range of motion postoperatively with last reported active range of motion orthopedic clinic of -10 to 80 degrees. Review of his last PT note from Kathleen Iraheta PTA on 06/17/19 reported post session motion was -5 to 108 degrees. Despite working on range of motion at home and with the aid of physical therapy he continues to have restricted range of motion that impacts overall function of his right knee. Due to patient's limited motion he was offered surgical intervention and elected to proceed. Patient recently underwent right total knee replacement and did well with surgery, anesthesia and during the postoperative phase. Please refer to providers history and physical for more complete pertinent surgical intervention section completed on 03/23/2019. Review of Systems Cardiovascular Cardiovascular: Denies chest pain and Denies dyspnea Respiratory Respiratory: Denies dyspnea [facility] Social History Smoking/Tobacco Use Status: Former Tobacco Use Tobacco: How many years used: 20 Alcohol Intake: current Alcohol Intake frequency: holidays/special occasions only Alcohol type: hard liquor Drug use: Never Current gender identity: male Do you feel safe at home: Yes Do you feel safe in your relationship?: Yes Meds Home Medications and Allergies Home Medications Medication Instructions Recorded Confirmed Type cranberry fruit concentrate 450 mg PO DAILY 09/02/12 06/21/19 History garlic 1 cap PO DAILY 09/02/12 06/21/19 History triamcinolone acetonide 1 pedro pablo TOPICAL BID PRN #3 script 09/02/12 06/21/19 History cetirizine 10 mg tablet 10 mg PO DAILY PRN tab-cap 01/06/18 06/21/19 History guaifenesin [Mucinex] 600 mg PO BID #5 tab 02/21/18 06/21/19 Rx losartan 100 1 tab PO DAILY #90 tab-cap 07/30/18 06/21/19 Rx mg-hydrochlorothiazide 25 mg tablet metformin 1,000 mg tablet 1,000 mg PO BID #180 tab-cap 07/30/18 06/21/19 Rx atorvastatin 20 mg tablet 20 mg PO DAILY #90 tab 09/22/18 06/21/19 Rx metoprolol succinate 100 mg 100 mg PO DAILY #90 tab 10/11/18 06/21/19 Rx tablet,extended release 24 hr vitamin B12 500 mcg-folic acid 400 1 tab PO DAILY #90 tab 11/23/18 06/21/19 Rx mcg tablet blood sugar diagnostic #100 strip 03/22/19 05/31/19 Rx Osteo Bi-Flex Triple Strength 1 tab PO DAILY 03/23/19 06/21/19 History amlodipine 10 mg PO HS 03/23/19 06/21/19 History alfuzosin 10 mg tablet,extended 10 mg PO DAILY #90 tab 03/29/19 06/21/19 Rx release 24 hr acetaminophen 650 mg PO Q6H PRN PRN #60 tab 04/03/19 06/21/19 Rx ibuprofen 600 mg PO TID PRN #90 tab 04/03/19 06/21/19 Rx tramadol 50 mg tablet 50 - 100 mg PO BID PRN #10 tab 06/09/19 06/21/19 Rx Allergies Allergy/AdvReac Type Severity Reaction Status Date / Time neomycin Allergy Intermediate SKIN RASH Verified 06/17/19 08:32 Sulfa (Sulfonamide Allergy Intermediate SKIN RASH Verified 06/17/19 08:32 Antibiotics) bacitracin Allergy Mild SKIN RASH Verified 06/17/19 08:32 miconazole Allergy Mild RASH Verified 06/21/19 08:44 gramicidin D Allergy Unknown SKIN RASH Verified 06/21/19 08:44 polymyxin B Allergy Unknown SKIN RASH Verified 06/21/19 08:44 Exam Resp Effort & Inspection: normal respiratory effort and able to speak in complete sentences Auscultation: clear to auscultation bilaterally, no rales, no rhonchi and no wheezes Cardio Heart Sounds: S1 normal and S2 normal
[2019-06-21] VITALS (7 sets, daily range): BP systolic 130–179; BP diastolic 66–85; PULSE 58–69; RESP 14–24; TEMP 36.1–36.4; O2SAT 95–97
[2019-06-21] MEDS: Lactated Ringers 1,000 ML 80 ML IV (09:18)
--- NOTE | 2019-06-21 10:58 | PDOC.DSDIS_ITS ---
Documented by User: Patricia Pang 06/21/19 11:08 Discharge Plan Disposition Patient Disposition: HOME Condition: Good Discharge Details Reason For Visit: right knee manipulation s/p right TKA Attending Provider: Orestes Curry Primary Care Provider: Enzo Sparks Home Meds and New Rx's Prescriptions: New acetaminophen 500 mg tablet 500 mg PO Q6H PRN (Reason: pain) Qty: 60 RF: 2 ibuprofen 600 mg tablet 600 mg PO TID PRN (Reason: pain) Qty: 60 RF: 2 tramadol 50 mg tablet 50 mg PO Q8H PRN (Reason: severe postoperative pain) Qty: 12 RF: 0 Continued tramadol 50 mg tablet 50 - 100 mg PO BID PRN (Reason: pain) Qty: 10 RF: 0 triamcinolone acetonide 15 GM ointment 1 pedro pablo Topical BID PRNQty: 3 RF: 4 garlic 1 EACH capsule 1 cap PO DAILY RF: 0 cranberry fruit concentrate 450 MG capsule 450 mg PO DAILY RF: 0 cetirizine [Zyrtec] 10 mg tablet 10 mg PO DAILY PRNRF: 0 losartan-hydrochlorothiazide [Hyzaar] 100-25 mg tablet 1 tab PO DAILY Qty: 90 RF: 4 metformin [Glucophage] 1,000 mg tablet 1,000 mg PO BID Qty: 180 RF: 3 atorvastatin [Lipitor] 20 mg tablet 20 mg PO DAILY Qty: 90 RF: 3 metoprolol succinate 100 mg tablet extended release 24 hr 100 mg PO DAILY Qty: 90 RF: 3 vitamin A33-[id number] acid 500-400 mcg tablet 1 tab PO DAILY Qty: 90 RF: 3 (DME) blood sugar diagnostic Strip 1 strip Miscellaneous DAILY Qty: 100 RF: 6 alfuzosin 10 mg tablet extended release 24 hr 10 mg PO DAILY Qty: 90 RF: 3 guaifenesin [Mucinex] 600 mg Tablet Extended Release 12hr 600 mg PO BID Qty: 5 RF: 0 Osteo Bi-Flex Triple Strength 750 mg-644 mg- 30 mg-1 mg Tablet 1 tab PO DAILY RF: 0 amlodipine 10 mg tablet 10 mg PO HS RF: 0 acetaminophen 650 mg tablet extended release 650 mg PO Q6H PRN PRN (Reason: pain) Qty: 60 RF: 6 ibuprofen 600 mg tablet 600 mg PO TID PRNQty: 90 RF: 3 Discharge Instructions Additional Instructions: Knee Manipulation Discharge Instructions Activity: You should begin moving as soon as possible. You may work on flexion but also equally maintain extension. You may bear weight as tolerated, using crutches/walker only for support/comfort. You should apply ice to help with swelling and elevate when possible (especially in the first few days). Dressings: The bandaid may come down any time after surgery. Medications: - Rarely does this require any stronger pain medications. You have been prescribed a refill of tramadol to take up to every 8 hours as needed for severe post-operative pain. - Recommend to take up to 1000mg of Acetaminophen (Tylenol) and 600mg of Ib uprofen (Advil) every 8 hours as needed. These larger strength tablets were called in but you also may use [id number]. Follow-up: 7-10 days Referrals: Orestes Curry MD [ [facility] STAFF PHYSICIAN] - Activity:: Activity as Tolerated Remove Dressings/Wound Care:: 48 hours Shower/Bathe:: 48 hours Diet:: As Tolerated Discharge Orders Discharge Orders: Discharge Order (Routine); Ordered 06/21/19 Ordered By: Patricia Pang DS: Diagnosis Discharge Diagnosis (1) Status post total right knee replacement: Status: Chronic Documented by User: Orestes Curry MD 06/21/19 11:30 Discharge Plan Disposition Patient Disposition: HOME Condition: Good Discharge Details Reason For Visit: right knee manipulation s/p right TKA Attending Provider: Orestes Curry Primary Care Provider: Enzo Sparks Home Meds and New Rx's Prescriptions: New acetaminophen 500 mg tablet 500 mg PO Q6H PRN (Reason: pain) Qty: 60 RF: 2 ibuprofen 600 mg tablet 600 mg PO TID PRN (Reason: pain) Qty: 60 RF: 2 tramadol 50 mg tablet 50 mg PO Q8H PRN (Reason: severe postoperative pain) Qty: 12 RF: 0 Continued tramadol 50 mg tablet 50 - 100 mg PO BID PRN (Reason: pain) Qty: 10 RF: 0 triamcinolone acetonide 15 GM ointment 1 pedro pablo Topical BID PRNQty: 3 RF: 4 garlic 1 EACH capsule 1 cap PO DAILY RF: 0 cranberry fruit concentrate 450 MG capsule 450 mg PO DAILY RF: 0 cetirizine [Zyrtec] 10 mg tablet 10 mg PO DAILY PRNRF: 0 losartan-hydrochlorothiazide [Hyzaar] 100-25 mg tablet 1 tab PO DAILY Qty: 90 RF: 4 metformin [Glucophage] 1,000 mg tablet 1,000 mg PO BID Qty: 180 RF: 3 atorvastatin [Lipitor] 20 mg tablet 20 mg PO DAILY Qty: 90 RF: 3 metoprolol succinate 100 mg tablet extended release 24 hr 100 mg PO DAILY Qty: 90 RF: 3 vitamin H42-zbuqy acid 500-400 mcg tablet 1 tab PO DAILY Qty: 90 RF: 3 (DME) blood sugar diagnostic Strip 1 strip Miscellaneous DAILY Qty: 100 RF: 6 alfuzosin 10 mg tablet extended release 24 hr 10 mg PO DAILY Qty: 90 RF: 3 guaifenesin [Mucinex] 600 mg Tablet Extended Release 12hr 600 mg PO BID Qty: 5 RF: 0 Osteo Bi-Flex Triple Strength 750 mg-644 mg- 30 mg-1 mg Tablet 1 tab PO DAILY RF: 0 amlodipine 10 mg tablet 10 mg PO HS RF: 0 acetaminophen 650 mg tablet extended release 650 mg PO Q6H PRN PRN (Reason: pain) Qty: 60 RF: 6 ibuprofen 600 mg tablet 600 mg PO TID PRNQty: 90 RF: 3 Discharge Instructions Additional Instructions: Knee Manipulation Discharge Instructions Activity: You should begin moving as soon as possible. You may work on flexion but also equally maintain extension. You may bear weight as tolerated, using crutches/walker only for support/comfort. You should apply ice to help with swelling and elevate when possible (especially in the first few days). Dressings: The bandaid may come down any time after surgery. Medications: - Rarely does this require any stronger pain medications. You have been prescribed a refill of tramadol to take up to every 8 hours as needed for severe post-operative pain. - Recommend to take up to 1000mg of Acetaminophen (Tylenol) and 600mg of Ibuprofen (Advil) every 8 hours as needed. These larger strength tablets were called in but you also may use [id number]. Follow-up: 7-10 days Referrals: Orestes Curry MD [ [facility] STAFF PHYSICIAN] - Activity:: Activity as Tolerated Remove Dressings/Wound Care:: 48 hours Shower/Bathe:: 48 hours Diet:: As Tolerated Discharge Orders Discharge Orders: Discharge Order (Routine); Ordered 06/21/19 Ordered By: Patricia Pang
[2019-06-21] MEDS: Bupivacaine 0.5% Pres-Free 30 ML VIAL (11:25)
[2019-06-21] MEDS: Acetaminophen 325 MG TAB 650 MG PO (12:13)
--- NOTE | 2019-06-21 23:09 | W.PM.OP ---
Date of service: 06/21/19 Time of Service: 14:09 Operative Note Operative Note DATE OF PROCEDURE: 06/21/19 PRE-OP DIAGNOSIS: Right knee Arthrofibrosis s/p Replacement POST-OP DIAGNOSIS: same PROCEDURE: Right knee Manipulation Under Anesthesia SURGEON: Orestes Curry ANESTHESIA: TRUMAN ESTIMATED BLOOD LOSS: 0 PATHOLOGY: none sent TOURNIQUET TIME: 0 COMPLICATIONS: None Patient was transported to: PACU Patient's condition: stable Indications: Orlando is a 83-year-old male who is s/p knee replacement. Despite diligent work with physical therapy there has been continued stiffness. To assist with mobility, I offered a manipulation under anesthesia. I discussed the risks of the procedure to include bleeding, pain, recurrent stiffness, fracture. Despite these risks, he elects to proceed. Findings: Preoperative flexion = 95 Postoperative flexion = 110 Preoperative extension = 15 Postoperative extension = 5 Procedure Description: The patient is agreed in the preoperative holding area. Identity was confirmed and the correct side was identified and marked. The consent was reviewed the patient and signed. History and physical was updated. Orlando was taken back to the operating room. The right side was identified as the correct side. A timeout was performed for safe surgery. A general anesthetic was administered. The knee was then prepped with ChloraPrep and an intra-articular injection of 10 cc of 0.5% bupivacaine was administered. Once a muscle relaxant was fully on board manipulation was performed. Pre-manipulation range of motion was noted. A gentle manipulation was performed first into flexion using a very small lever arm and adding gentle and progressive pressure to the tibia. There is audible and palpable crepitus with improvement in range of motion. This was cycled and repeated multiple times. The leg was then brought into extension and gentle anterior posterior pressure was applied with a supported hand behind the proximal tibia and knee where there was some notable improvement with his extension. This was brought back into flexion was once again manipulated with gentle and progressive pressure. Final range of motion numbers were recorded. A Band-Aid was applied to the injection site. He was awake from anesthesia and taken to the PACU in stable condition.
== END 2019-06-21 13:09 | disposition home or self-care (01) ==
PROVIDERS: PCP Emergency Medicine; Visit Provider Student in an Organized Health Care Education/Training Program
PROC: (CPT 27570; principal; 2019-06-21 11:45)
DX: T84.82XA Fibrosis due to internal orthopedic prosthetic devices, implants and grafts, initial encounter (principal); M24.661 Ankylosis, right knee; Z96.651 Presence of right artificial knee joint; I10 Essential (primary) hypertension; E11.9 Type 2 diabetes mellitus without complications
CPT/HCPCS: 27570; NC

== ENCOUNTER → 2019-07-01 11:17 | Outpatient (BNVA) | payer MEDICARE, SELFPAY | PROVIDERS: PCP Emergency Medicine; Referring Provider Emergency Medicine; Visit Provider Student in an Organized Health Care Education/Training Program | DX: Z47.1 Aftercare following joint replacement surgery (principal); Z96.651 Presence of right artificial knee joint ==

== ENCOUNTER → 2019-08-26 09:54 | Outpatient (BNVA) | payer MEDICARE, SELFPAY | PROVIDERS: PCP Emergency Medicine; Referring Provider Emergency Medicine; Visit Provider Student in an Organized Health Care Education/Training Program | DX: Z47.1 Aftercare following joint replacement surgery (principal); Z96.651 Presence of right artificial knee joint ==

== ENCOUNTER 2020-06-18 10:33 | Outpatient (CLI) | payer MEDICARE, SELFPAY ==
--- NOTE | 2020-06-18 09:45 | DI.RAD_ITS ---
EXAM: XR KNEE RT 2V AP,LAT CLINICAL HISTORY: annual f/u R TKA. TECHNIQUE: 2D digital imaging was performed. COMPARISON: CR XR KNEE RT 2V AP,LAT from 05/16/2019 FINDINGS: Stable appearance of the prosthesis components with no evidence of fracture or loosening. No radiogr aphic evidence of osteomyelitis. 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 This was evident on the prior study. This is located 6-7 cm above the level of the prosthesis. IMPRESSION: DATA REPOSITORY: RADIATION DOSE DELIVERED:
== END 2020-06-18 10:34 | disposition home or self-care (01) ==
LOC: DIORS 10:33
PROVIDERS: PCP Emergency Medicine; Referring Provider Emergency Medicine; Visit Provider Student in an Organized Health Care Education/Training Program
DX: Z96.651 Presence of right artificial knee joint (principal); Z47.1 Aftercare following joint replacement surgery
CPT/HCPCS: 99213; 73560

== ENCOUNTER 2020-09-25 14:18 | Outpatient (REF) | payer MEDICARE, SELFPAY ==
[2020-09-25 18:17] LABS: Hemoglobin A1C 6.7 % (<5.7)
[2020-09-25 18:40] LABS: Anion Gap 10.8 mmol/L (3-11); BUN 18 mg/dL (7-18); CO2 28.2 mmol/L (21.0-32.0); CREATININE 0.9 mg/dL (0.70-1.30); Calcium 9.5 mg/dL (8.5-10.1); Calculated LDL 24 mg/dL (<100); Chloride 105 mmol/L (98-107); Cholesterol 131 mg/dL (<200); Glucose 110 mg/dL (74-106); HDL Cholesterol 36 mg/dL (40-60); Potassium 3.9 mmol/L (3.5-5.1); Sodium 144 mmol/L (136-145); Triglyceride 357 mg/dL (<150); Vitamin B12 1208 pg/mL (193-986)
== END 2020-09-25 14:19 | disposition home or self-care (01) ==
LOC: LBN 14:18
PROVIDERS: PCP Emergency Medicine; Visit Provider Emergency Medicine
DX: I10 Essential (primary) hypertension (principal); E78.5 Hyperlipidemia, unspecified; E11.9 Type 2 diabetes mellitus without complications; D53.8 Other specified nutritional anemias; G62.9 Polyneuropathy, unspecified
CPT/HCPCS: 80048; 80061; 82607; 83036

== ENCOUNTER 2021-05-10 04:09 | Outpatient (CLI) | payer MEDICARE, SELFPAY ==
[2021-05-10 11:49] LABS: Hemoglobin A1C 6.7 % (<5.7)
[2021-05-10 13:05] LABS: BUN 19 mg/dL (7-18); Calcium 9.1 mg/dL (8.5-10.1); Chloride 105 mmol/L (98-107); Glucose 152 mg/dL (74-106); Sodium 142 mmol/L (136-145); Vitamin B12 647 pg/mL (193-986)
[2021-05-10 13:07] LABS: Potassium 3.7 mmol/L (3.5-5.1)
== END 2021-05-10 04:10 | disposition home or self-care (01) ==
LOC: LBO 04:09
PROVIDERS: PCP Family Medicine; Visit Provider Emergency Medicine
DX: I10 Essential (primary) hypertension (principal); E53.8 Deficiency of other specified B group vitamins; E11.9 Type 2 diabetes mellitus without complications
CPT/HCPCS: 36415; 80048; 82607; 83036

== ENCOUNTER 2022-08-20 15:13 | Outpatient (CLI) | payer MEDICARE, SELFPAY ==
[2022-08-20 16:11] LABS: Anion Gap 5.9 mmol/L (3-11); BUN 16 mg/dL (7-18); CO2 30.1 mmol/L (21.0-32.0); CREATININE 1.1 mg/dL (0.70-1.30); Calcium 9.7 mg/dL (8.5-10.1); Chloride 105 mmol/L (98-107); Estimated GFR 64.97 (mL/min/1.73m2); Glucose 187 mg/dL (74-106); Potassium 4.2 mmol/L (3.5-5.1); Sodium 141 mmol/L (136-145)
== END 2022-08-20 15:14 | disposition home or self-care (01) ==
LOC: LBO 15:14
PROVIDERS: PCP Family Medicine; Visit Provider Family Medicine
DX: E87.1 Hypo-osmolality and hyponatremia (principal); E11.9 Type 2 diabetes mellitus without complications; I10 Essential (primary) hypertension
CPT/HCPCS: 36415; 80048

== ENCOUNTER → 2023-06-16 15:18 | Outpatient (CLI) | payer MEDICARE, SELFPAY ==
--- NOTE | 2023-06-16 14:30 | DI.RAD_ITS ---
Exam(s) XR TOE LT GREAT EXAM: XR TOE LT GREAT CLINICAL HISTORY: S99.196O left great toe injury. r/o fracture. TECHNIQUE: 2D digital imaging was performed. COMPARISON: No exams were available for comparison FINDINGS: 3 views There is a subtle nondisplaced transverse fracture in the proximal half of the distal phalanx of the great toe. No obvious fracture evident in the proximal phalanx nor in the visualized great toe metat arsal head. IMPRESSION: Fracture distal phalanx. DATA REPOSITORY: RADIATION DOSE DELIVERED:
== END ==
PROVIDERS: PCP Family Medicine; Visit Provider Physician Assistant
DX: S92.425A Nondisplaced fracture of distal phalanx of left great toe, initial encounter for closed fracture (principal); X58.XXXA Exposure to other specified factors, initial encounter
CPT/HCPCS: 73660

== ENCOUNTER → 2023-09-21 16:12 | Outpatient (CLI) | payer MEDICARE, SELFPAY ==
--- NOTE | 2023-09-21 16:28 | DI.RAD_ITS ---
Exam(s) XR CHEST 2V PA LATERAL EXAM: XR CHEST 2V PA LATERAL CLINICAL HISTORY: pathology, R06.02 shortness of breath TECHNIQUE: 2D digital imaging was performed. Two views. COMPARISON: CR XR CHEST 2V PA LATERAL from 02/17/2018 FINDINGS: HEART: Enlarged. Aorta: Tortuous. PULMONARY VASCULATURE: Normal. LUNGS: Clear. PLEURAL SPACE: No pleural effusion or pneumothorax. Calcified pleural plaques. BONE:Degenerative changes in the spine. Soft tissues: Unremarkable. IMPRESSION: No acute abnormality. DATA REPOSITORY: RADIATION DOSE DELIVERED:
--- NOTE | 2023-09-21 17:31 | DI.VRAD_ITS ---
PROCEDURE INFORMATION: Exam: XR Chest Exam date and time: 09/21/2023 4:25 PM Age: 88 years old Clinical indication: Shortness of breath TECHNIQUE: Imaging protocol: Radiologic exam of the chest. Views: 2 views. COMPARISON: CR XR CHEST 2V PA LATERAL 17/02/2018 12:17 FINDINGS: Lungs: Bilateral scattered pulmonary calcifications similar to prior study. No focal consolidation. Pleural spaces: Blunted posterior costophrenic angles. Calcified pleural plaque. Heart/Mediastinum: Cardiomegaly. Bones/joints: Multilevel degenerative changes of the spine. Age indeterminate right anterior rib fractures. IMPRESSION: 1. Cardiomegaly. 2. Blunted posterior costophrenic angles. 3. Extensive calcified pleural plaques similar to prior study. Dictated and Authenticated by: Lora Hernandez MD. Ordering:MOLLY Mak MD
== END ==
PROVIDERS: PCP Family Medicine; Visit Provider Nurse Practitioner Family
DX: R06.02 Shortness of breath (principal)
CPT/HCPCS: 71046

== ENCOUNTER 2023-09-22 07:55 | Inpatient (IN) | payer MEDICARE, SELFPAY ==
[2023-09-22] VITALS (57 sets, daily range): BP systolic 104–167; BP diastolic 55–79; PULSE 67–86; RESP 3–37; TEMP 36.2–37; O2SAT 88–98
--- NOTE | 2023-09-22 08:15 | RT.EKG_ITS ---
APPROVED REPORT Exam: Resting ECG Reason for Exam: weakness Patient Location: E HR:72 bpm ECG Measurements Heart Rate 72 AXIS UT 246 P 19 QRSd 164 QRS 64 QT 406 T -41 QTc 446 Conclusion Sinus rhythm RBBB 72 no stemi
--- NOTE | 2023-09-22 08:21 | ED.GENADUL_ITS ---
Discharge Plan Discharge Details Chief Complaint: Fall/Non TraumaCriteria Primary Care Provider: Jarrod Gorman ED Provider: Elana Ruiz Home Meds and New Rx's Prescriptions: No Action triamcinolone acetonide 0.1 % cream 1 applic topical BID Qty: 30 2RF clotrimazole [Lotrimin AF (clotrimazole)] 1 % cream 1 applic topical .QD Qty: 30 1RF Rx Instructions: Apply to rash of lower extremities/feet, once daily. Relief Factor PO Rx Instructions: vitamin/supplement pack including; omega, curcumin, resveratol, and Icariin. 10/2021. nitroglycerin [Nitrostat] 0.4 mg tablet, sublingual 0.4 mg Sublingual PRN Qty: 25 4RF alfuzosin 10 mg tablet extended release 24 hr 10 mg PO DAILY Qty: 90 3RF Rx Instructions: administer after the same meal each day losartan-hydrochlorothiazide [Hyzaar] 100-25 mg tablet 1 tab PO DAILY Qty: 90 4RF metformin 1,000 mg tablet 1,000 mg PO BID Qty: 180 3RF amlodipine 10 mg tablet 10 mg PO HS Qty: 90 3RF atorvastatin [Lipitor] 20 mg tablet 20 mg PO DAILY Qty: 90 3RF mupirocin 2 % ointment 1 applic topical TID Qty: 15 0RF triamcinolone acetonide 15 GM ointment 1 pedro pablo Topical BID PRNQty: 3 Patient Comments: Pt. states that it has been over a year since he last used this med. garlic 1 EACH capsule 1 cap PO DAILY cranberry fruit concentrate 450 MG capsule 450 mg PO DAILY Patient Comments: hasnt used in a while cetirizine [Zyrtec] 10 mg tablet 10 mg PO DAILY PRN vitamin D52-lvrca acid 500-400 mcg tablet 1 tab PO DAILY Qty: 90 3RF (DME) blood sugar diagnostic Strip 1 strip Miscellaneous DAILY Qty: 100 11RF Rx Instructions: DX E11.9 One time daily metoprolol succinate 100 mg tablet extended release 24 hr 100 mg PO DAILY Qty: 90 3RF metoprolol succinate 50 mg tablet extended release 24 hr 50 mg PO DAILY Qty: 90 3RF Rx Instructions: take with a 100 mg tab to equal 150 mg/day gabapentin 300 mg capsule See Rx Instructions .ROUTE .COMPLEX Qty: 60 2RF Dose Instruction: TAKE ONE CAPSULE BY MOUTH ONCE TO TWICE A DAY; MAY TAKE A SECOND DOSE IN THE MORNING NEEDED Rx Instructions: TAKE ONE CAPSULE BY MOUTH ONCE TO TWICE A DAY; MAY TAKE A SECOND DOSE IN THE MORNING NEEDED guaifenesin [Mucinex] 600 mg Tablet Extended Release 12hr 600 mg PO BID Qty: 5 0RF Osteo Bi-Flex Triple Strength 750 mg-644 mg- 30 mg-1 mg Tablet 1 tab PO DAILY acetaminophen 650 mg tablet extended release 650 mg PO Q6H PRN PRN (Reason: pain) Qty: 60 6RF ibuprofen 600 mg tablet 600 mg PO TID PRNQty: 90 3RF HPI General Date/Time Provider Initiated Documentation: 09/22/23 08:05 . HPI Narrative: Orlando is an 88-year-old male with history of T2DM, balance issues, ASCVD with stent placement, HTN, HLD who presents to the emergency department today for evaluation of weakness. He reports that he has had left thigh pain for the last 4 days since helping with haying on Thursday. Pain is elicited when lifting his leg, located to the for the leg, this is not able to be reproduced with palpation. A couple days ago he felt chills, none since then. Last night he fell due to poor balance, landing on his left side. He was unable to get up, spent the night laying on the floor because he was unable to get himself up due to the left thigh pain. Denies hitting his head, back pain, leg pain, or other injury. He has had significant weakness today, says he does not feel as strong as he usually does, with generalized feeling of weakness. Denies fevers, dizz iness beyond baseline, headache, ear pain, sore throat, new congestion, cough, chest pain, shortness of breath, change in p.o. intake, nausea/vomiting, abdominal pain, change in bladder function. He has occasional diarrhea, says this is not new, denies black/tarry stools. No new numbness/tingling. Related Data Home Medications Medication Instructions Recorded Confirmed cranberry fruit concentrate 450 mg 450 mg PO DAILY 09/02/12 09/22/23 capsule garlic 1 cap PO DAILY 09/02/12 09/22/23 triamcinolone acetonide 0.5 % 1 pedro pablo topical BID PRN ##3 09/02/12 09/22/23 topical ointment cetirizine 10 mg tablet (Zyrtec) 10 mg PO DAILY PRN 01/06/18 09/22/23 guaifenesin 600 mg tablet, 600 mg PO BID #5 tabs 02/21/18 09/22/23 extended release 12 hr (Mucinex) glucosamine 750 [id number] 1 tab PO DAILY 03/23/19 09/22/23 no1 644 mg-C 30 mg-grover 1 mg tablet (Osteo Bi-Flex Triple Strength) acetaminophen 650 mg 650 mg PO Q6H PRN PRN pain #60 tabs 04/03/19 09/22/23 tablet,extended release ibuprofen 600 mg tablet 600 mg PO TID PRN #90 tabs 04/03/19 09/22/23 Relief Factor PO Shoulder and low back pain 02/17/22 09/11/23 clotrimazole 1 % topical cream 1 applic topical .QD #30 grams 02/17/22 09/22/23 (Lotrimin AF (clotrimazole)) triamcinolone acetonide 0.1 % 1 applic topical BID leg rash #30 03/04/22 09/22/23 topical cream grams vitamin B12 500 mcg-folic acid 400 1 tab PO DAILY #90 tabs 05/12/22 09/22/23 mcg tablet blood sugar diagnostic #100 strips 07/12/22 09/22/23 nitroglycerin 0.4 mg sublingual 0.4 mg sublingual PRN ##25 10/16/22 09/22/23 tablet (Nitrostat) metoprolol succinate 100 mg 100 mg PO DAILY #90 tabs 12/15/22 09/22/23 tablet,extended release 24 hr metoprolol succinate 50 mg 50 mg PO DAILY #90 tabs 02/23/23 09/22/23 tablet,extended release 24 hr alfuzosin 10 mg tablet,extended 10 mg PO DAILY #90 tabs 04/30/23 09/22/23 release 24 hr losartan 100 1 tab PO DAILY #90 tab-caps 04/30/23 09/22/23 mg-hydrochlorothiazide 25 mg tablet (Hyzaar) metformin 1,000 mg tablet 1,000 mg PO BID #180 tab-caps 04/30/23 09/22/23 mupirocin 2 % topical ointment 1 applic topical TID #15 grams 06/16/23 09/22/23 gabapentin 300 mg capsule See Rx Instructions .Route 07/14/23 09/22/23 .COMPLEX #60 caps amlodipine 10 mg tablet 10 mg PO HS #90 tabs 08/04/23 09/22/23 atorvastatin 20 mg tablet (Lipitor) 20 mg PO DAILY #90 tabs 08/04/23 09/22/23 Previous Rx's Medication Instructions Recorded guaifenesin 600 mg tablet, 600 mg PO BID #5 tabs 02/21/18 extended release 12 hr (Mucinex) acetaminophen 650 mg 650 mg PO Q6H PRN PRN pain #60 tabs 04/03/19 tablet,extended release ibuprofen 600 mg tablet 600 mg PO TID PRN #90 tabs 04/03/19 clotrimazole 1 % topical cream 1 applic topical .QD #30 grams 02/17/22 (Lotrimin AF (clotrimazole)) triamcinolone acetonide 0.1 % 1 applic topical BID leg rash #30 03/04/22 topical cream grams vitamin B12 500 mcg-folic acid 400 1 tab PO DAILY #90 tabs 05/12/22 mcg tablet blood sugar diagnostic #100 strips 07/12/22 nitroglycerin 0.4 mg sublingual 0.4 mg sublingual PRN ##25 10/16/22 tablet (Nitrostat) metoprolol succinate 100 mg 100 mg PO DAILY #90 tabs 12/15/22 tablet,extended release 24 hr metoprolol succinate 50 mg 50 mg PO DAILY #90 tabs 02/23/23 tablet,extended release 24 hr alfuzosin 10 mg tablet,extended 10 mg PO DAILY #90 tabs 04/30/23 release 24 hr losartan 100 1 tab PO DAILY #90 tab-caps 04/30/23 mg-hydrochlorothiazide 25 mg tablet (Hyzaar) metformin 1,000 mg tablet 1,000 mg PO BID #180 tab-caps 04/30/23 mupirocin 2 % topical ointment 1 applic topical TID #15 grams 06/16/23 gabapentin 300 mg capsule See Rx Instructions .Route 07/14/23 .COMPLEX #60 caps amlodipine 10 mg tablet 10 mg PO HS #90 tabs 08/04/23 atorvastatin 20 mg tablet (Lipitor) 20 mg PO DAILY #90 tabs 08/04/23 Allergies Allergy/AdvReac Type Severity Reaction Status Date / Time neomycin Allergy Intermediate SKIN RASH Verified 09/22/23 08:06 Sulfa (Sulfonamide Allergy Intermediate SKIN RASH Verified 09/22/23 08:06 Antibiotics) bacitracin Allergy Mild SKIN RASH Verified 09/22/23 08:06 miconazole Allergy Mild RASH Verified 09/22/23 08:06 gramicidin D Allergy Unknown SKIN RASH Verified 09/22/23 08:06 polymyxin B Allergy Unknown SKIN RASH Verified 09/22/23 08:06 General Stated Complaint: Fall/Non TraumaCriteria TANYA: 3 Review of Systems Narrative: see HPI Exam Const General: cooperative, comfortable, no acute distress and well developed HENMT Head: normal to inspection and no palpable skull fracture Ears: hearing grossly normal bilaterally General nose exam: external nose normal Face and sinus: normal facial exam Mouth: moist mucous membranes abnormal (tacky) Resp Effort & Inspection: normal respiratory effort and able to speak in complete sentences Auscultation: rales (thoughout all lung boothe) Cardio Jugular venous pressure: no JVD Rate: regular rate Rhythm: regular rhythm GI Inspection: normal to inspection Palpation: soft and nontender Course Vital Signs Vital signs: Vital Signs Temperature 37.0 C 09/22/23 07:54 Pulse 86 09/22/23 07:54 Respiratory Rate 20 09/22/23 07:54 Blood Pressure 167/65 H 09/22/23 07:54 Pulse Oximetry 91 L 09/22/23 07:54 Temperature 37.0 C 09/22/23 07:54 Temperature Source Oral 09/22/23 07:54 Pulse 86 09/22/23 07:54 Respiratory Rate 20 09/22/23 07:54 Respiratory Effort Normal 09/22/23 08:12 Blood Pressure 167/65 H 09/22/23 07:54 Blood Pressure Position Sitting 09/22/23 07:54 Pulse Oximetry 91 L 09/22/23 07:54 Oxygen Delivery Method Nasal Cannula 09/22/23 07:54 Oxygen Flow Rate 2 09/22/23 07:54 Pain Level 3 09/22/23 08:11 Medical Decision Making Orlando is an 88-year-old male with history of T2DM, balance issues, ASCVD with stent placement, HTN, HLD who presents to the emergency department today for evaluation of weakness. He reports that he has had left thigh pain for the last 4 days since helping with haying on Thursday. Pain is elicited when lifting his leg, located to the for the leg, this is not able to be reproduced with palpation. A couple days ago he felt chills, none since then. Last night he fell due to poor balance, landing on his left side. He was unable to get up, spent the night laying on the floor because he was unable to get himself up due to the left thigh pain. Denies hitting his head, back pain, leg pain, or other injury. He has had significant weakness today, says he does not feel as strong as he usually does, with generalized feeling of weakness. Denies fevers, diz ziness beyond baseline, headache, ear pain, sore throat, new congestion, cough, chest pain, shortness of breath, change in p.o. intake, nausea/vomiting, abdominal pain, change in bladder function. He has occasional diarrhea, says this is not new, denies black/tarry stools. No new numbness/tingling. Physical exam remarkable for crackles in all lung boothe. Pt does require O2 to maintain sats above 92% (does not use O2 at home). No JVD or obvious pedal edema, though patient is wearing compression stockings. Tacky mucous membranes. Patient is alert and oriented, no acute distress. Normal heart sounds. Abdomen is soft, nondistended, nontender to palpation. Moving all extremities equally. No facial droop. Clear voice, patient is alert and oriented. No tenderness to palpation to left thigh, no erythema/warmth/swelling. Painless range of motion to hip and knee, though he does have discomfort in his thigh when he flexes his hip. DDx includes but is not limited to: ACS, viral illness, tickborne illness, dehydration/WESLEY, electrolyte imbalance, occult infection such as UTI or pneumonia X-rays ordered to rule out fracture or other significant abnormality. I independently interpreted the following tests: Chest x-ray unremarkable, cardiomegaly, no obvious cardiopulmonary processes noted, though xray was difficult to read due to pt positioning and poor quality image. This confirmed by radiologist EKG reassuring, normal sinus rhythm with prolonged MS 220 and right bundle branch block. Inverted T waves in V3, otherwise no changes from previous on 02/17/2018. CBC notable for significant leukopenia, white cell count 1.76 and thrombocytopenia, platelets 18. LFTs slightly elevated from previous. Hypokalemia noted, 3.1. Elevated BUN to creatinine ratio 38 and 2.0, consistent with WESLEY as this is elevated from previous. CK is slightly elevated at 377. VBG reassuring, slightly elevated CO2 56 with bicarb 29. Initial troponin negative, less than 50. Lactate 1.5. Procalcitonin elevated at 1.1; in setting of pt with new O2 needs and poor quality CXR, likely PNA. Blood cultures drawn, as well as Lyme/tick and mono tests. Patient treated empirically with doxycycline and Rocephin for presumed PNA/possible tickborne illness. While in the emergency department Orlando received 500 cc IV fluids. I did review prior medical records, including PCP visits from 08/04/2023 and 09/11/23 in which pt's DM and ASCVD were addressed. Overall workup today significant for elevated LFTs and presence of leukopenia and thrombocytopenia, concern for likely tickborne illness. Will also treat for pneumonia as patient has elevated procalcitonin with inadequate chest x-ray. Presented case with Dr. Costa, patient to be admitted to [facility] unit. Imaging Data Radiologic Study: Radiologist's impression: Exam(s) XR CHEST 2V PA LATERAL EXAM: XR CHEST 2V PA LATERAL CLINICAL HISTORY: crackles in lungs, weakness TECHNIQUE: 2D digital imaging was performed of the chest. Images were obtained. PA and lateral views were obtained. COMPARISON: CR,XR XR CHEST 2V PA LATERAL from 09/21/2023 FINDINGS: The lateral view is limited due to patient positioning. MEDIASTINUM: Normal. HEART: Cardiomegaly. PULMONARY VASCULATURE: Normal. LUNGS: No focal consolidating infiltrates are appreciated. PLEURAL SPACE: No pleural effusion or pneumothorax. Calcified pleural plaques are again seen. BONE:Within normal limits for the patient's age. OTHER FINDINGS:Normal. IMPRESSION: 1. Examination limited by patient positioning. 2. No definite acute pulmonary process. Radiologic Study #2: Radiologist's impression: Exam(s) XR KNEE LT 4V AP,LAT,ELVIRA,PAT XR HIP LT 1V XR FEMUR LT EXAM: XR FEMUR LT and XR hip LT 1 V and XR knee LT for V CLINICAL HISTORY: L femur pain. TECHNIQUE: 2D digital imaging was performed of the left femur, hip and knee. Ten images were obtained. Multiple views were obtained. COMPARISON: CR LEFT KNEE 3 VIEW COMPLETE from 09/13/2015 CR XR STANDING ALIGNMENT from 04/18/2019 FINDINGS: BONES: The patient has a left total knee replacement. No suspicious lucencies are seen in or about the orthopedic hardware. No bony destructive lesion is seen. There are marked degenerative changes seen in the left hip with joint space narrowing and osteophytes. Subchondral sclerosis is seen in the acetabulum. SOFT TISSUE: Vascular calcifications are present. IMPRESSION: 1. No acute fracture or dislocation. 2. Marked degenerative changes of the left hip. 3. Stable left total knee replacement. Quality:SDOH Health Related Social Needs: No Data to Display [facility] All Active Problems Impacted cerumen of right ear (Acute) Visit for suture removal (Acute) Diabetic foot infection (Acute) Upper back pain (Acute) Impacted cerumen, left ear (Acute) Gait abnormality (Acute) Allergic rhinitis (Acute) Localized edema (Acute) Diabetic dermopathy (Acute) Back pain (Acute) Tinea pedis (Acute) Nail dystrophy (Acute) Central perforation of tympanic membrane of right ear (Acute) Sensorineural hearing loss of both ears (Acute) Bone cyst of right tibia (Acute) Pancreas cyst (Acute) GI at [facility] reported it did not appear cancerous Peripheral neuropathy (Chronic) both feet are insensate to monofilament. Limited sensation to light touch multifactorial due to back injury, and DM Hyperlipidemia (Chronic) Essential hypertension (Chronic) Diabetes mellitus (Chronic) Coronary atherosclerosis of saxman coronary vessel (Chronic) stent Medical History Right hand fracture ~2004 Pinned Right wrist fracture cast Otitis media Sepsis Pt reported Jan 2018 Community acquired pneumonia Pt reported Jan 2018 Polyp of colon, adenomatous hyperplastic Peripheral neuralgia Neural hearing loss, unilateral (07/25/13) Surgical History Hx of spinal fusion 1963 Lower spine, had a herniated disk that they removed per pt [place] heart [place] [facility] [place] History of ear surgery Right ear 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 JENSEN MASTOID INCISION I&D Fracture, Open Treatment RIGHT TIBIA External hardware ~1962 Colonoscopy - MAC 2004 Appendectomy Family History Other Mixed hearing loss, unspecified Social History Smoking/Tobacco Use Status: Former Tobacco Use Tobacco: How many years used: 20 Second Hand Exposure: No Smoking risk assessment performed?: Yes Alcohol Intake: never Drug use: Never Housing: house Current gender identity: male Do you feel safe at home: Yes Do you feel safe in your relationship?: Yes
[2023-09-22 08:32] LABS: BE (Venous) 3 mmol/L (-2-3); HCO3 (Venous) 29 mmol/L (23-28); O2 Sat (Venous) 31 %; TCO2 (Venous) 27 mmol/L (24-29); pCO2 (Venous) 56 mmHg (41-51); pH (Venous) 7.33 (7.31-7.41); pO2 (Venous) 22 mmHg
[2023-09-22] MEDS: Normal Saline 500 ML 1000 ML IV (08:32)
[2023-09-22 08:34] LABS: HCT 39.5 % (40.0-50.0); HGB 12.5 g/dL (13.5-17.5); MCHC 31.6 % (32.0-36.0); MCV 88 fL (80-95); MPV 13.1 fL (8.0-11.0); RBC 4.47 10^6/uL (4.36-5.78); RDW 13.7 % (11.8-14.1); RDW-SD 44.5 fL
[2023-09-22 08:37] LABS: Lactate 1.5 mmol/L (0.6-1.4)
[2023-09-22 09:01] LABS: ALT 70 U/L (16-63); AST 83 U/L (15-37); Albumin 2.9 g/dL (3.4-5.0); Alkaline Phosphatase 160 U/L (46-116); Anion Gap 8.3 mmol/L (3-11); BUN 38 mg/dL (7-18); CO2 29.7 mmol/L (21.0-32.0); Calcium 8.6 mg/dL (8.5-10.1); Chloride 100 mmol/L (98-107); Creatine Kinase 377 U/L (39-308); Estimated GFR 31.51 (mL/min/1.73m2); Glucose 195 mg/dL (74-106); Potassium 3.1 mmol/L (3.5-5.1); Sodium 138 mmol/L (136-145); Total Protein 6.3 g/dL (6.4-8.2)
[2023-09-22 09:03] LABS: Troponin I < 50 ng/L (< or =60)
--- NOTE | 2023-09-22 09:15 | DI.CT_ITS ---
Exam(s) CT HEAD WO EXAM: CT HEAD WO CLINICAL HISTORY: fall, thrombocytopenia. TECHNIQUE: Imaging Protocol: Axial computed tomography images with coronal and sagittal reformatted images were created and reviewed COMPARISON: No exams were available for comparison FINDINGS: Ventricles and Extra axial spaces: Normal in size and morphology for the patient's age. Hemorrhage: None. Cerebral parenchyma: There are areas of decreased attenuation in the white matter consistent with chr onic microvascular ischemic disease. No evidence of an acute territorial infarct. Midline shift: None. Brainstem/Cerebellum: Normal. Calvarium: Normal. Visualized Paranasal sinuses/Mastoids: There are postsurgical changes seen in the right mastoid air c ells. Soft Tissues: Unremarkable. IMPRESSION: No acute intracranial process. RADIATION DOSE DELIVERED: 958.18mGy.cm Total DLP DATA REPOSITORY: All CT scans at this facility are submitted to the National Radiology Data Registry (NRDR) Dose Index Registry (DIR) with the [employer] ([employer]). RADIATION OPTIMIZATION: All CT scans at this facility use at least one of these dose optimization te chniques: automated exposure control; mA and/or kV adjustment per patient size (includes targeted exa ms where dose is matched to clinical indication); or iterative reconstruction.
[2023-09-22 09:16] LABS: Absolute Lymphocyte Count 0.23 10^3/uL (1.2-3.4); Absolute Monocyte Count 0.11 10^3/uL (0.1-0.8); Absolute Neutrophil Count 1.39 10^3/uL (1.2-6.7); Atypical Lymphocytes % 2 %; Bands % 11 %; Other Cells % 2; WBC 1.76 10^3/uL (4.4-10.8)
[2023-09-22 09:17] LABS: Diff Comment Manual Differential; Platelet Count 18 10^3/uL (130-400); RBC Morphology Normal
[2023-09-22 09:19] LABS: COVID-19 PCR Negative (Negative); Influenza A PCR Negative (Negative); Influenza B PCR Negative (Negative); RSV PCR Negative (Negative); Source Nasopharynx
[2023-09-22 09:24] LABS: Procalcitonin 1.1 ng/mL
--- NOTE | 2023-09-22 09:26 | DI.RAD_ITS ---
Exam(s) XR KNEE LT 4V AP,LAT,ELVIRA,PAT XR HIP LT 1V XR FEMUR LT EXAM: XR FEMUR LT and XR hip LT 1 V and XR knee LT for V CLINICAL HISTORY: L femur pain. TECHNIQUE: 2D digital imaging was performed of the left femur, hip and knee. Ten images were obtain ed. Multiple views were obtained. COMPARISON: CR LEFT KNEE 3 VIEW COMPLETE from 09/13/2015 CR XR STANDING ALIGNMENT from 04/18/2019 FINDINGS: BONES: The patient has a left total knee replacement. No suspicious lucencies are seen in or about t he orthopedic hardware. No bony destructive lesion is seen. There are marked degenerative changes se en in the left hip with joint space narrowing and osteophytes. Subchondral sclerosis is seen in the acetabulum. SOFT TISSUE: Vascular calcifications are present. IMPRESSION: 1. No acute fracture or dislocation. 2. Marked degenerative changes of the left hip. 3. Stable left total knee replacement. DATA REPOSITORY: RADIATION DOSE DELIVERED:
--- NOTE | 2023-09-22 09:26 | DI.RAD_ITS ---
Exam(s) XR CHEST 2V PA LATERAL EXAM: XR CHEST 2V PA LATERAL CLINICAL HISTORY: crackles in lungs, weakness TECHNIQUE: 2D digital imaging was performed of the chest. Images were obtained. PA and lateral v iews were obtained. COMPARISON: CR,XR XR CHEST 2V PA LATERAL from 09/21/2023 FINDINGS: The lateral view is limited due to patient positioning. MEDIASTINUM: Normal. HEART: Cardiomegaly. PULMONARY VASCULATURE: Normal. LUNGS: No focal consolidating infiltrates are appreciated. PLEURAL SPACE: No pleural effusion or pneumothorax. Calcified pleural plaques are again seen. BONE:Within normal limits for the patient's age. OTHER FINDINGS:Normal. IMPRESSION: 1. Examination limited by patient positioning. 2. No definite acute pulmonary process. DATA REPOSITORY: RADIATION DOSE DELIVERED:
[2023-09-22] MEDS: Doxycycline Hyclate 100 MG CAP PO (10:31)
[2023-09-22] MEDS: Potassium Bicarbonate/Cit AC 25 MEQ TABLET.EFF PO (10:31)
[2023-09-22 10:52] LABS: Mono Screening Negative (Negative)
[2023-09-22 11:10] LABS: Magnesium 1.9 mg/dL (1.8-2.4)
[2023-09-22] MEDS: cefTRIAXone 2 GM/50 ML BAG IVPB (11:19)
[2023-09-22 11:21] LABS: HCT 39.4 % (40.0-50.0); HGB 12.6 g/dL (13.5-17.5); MCH 28.3 pg (27.0-33.0); MCV 88 fL (80-95); RBC 4.46 10^6/uL (4.36-5.78); RDW 13.7 % (11.8-14.1); RDW-SD 44.3 fL
[2023-09-22 11:22] LABS: NT-proBNP 1372 pg/mL (<300)
[2023-09-22 11:57] LABS: Platelet Count 16 10^3/uL (130-400)
[2023-09-22 11:58] LABS: Absolute Lymphocyte Count 0.23 10^3/uL (1.2-3.4); Absolute Monocyte Count 0.02 10^3/uL (0.1-0.8); Absolute Neutrophil Count 1.26 10^3/uL (1.2-6.7); Bands % 9 %; Diff Comment Manual Differential; RBC Morphology Normal
[2023-09-22 13:28] LABS: Troponin I < 50 ng/L (< or =60)
[2023-09-22] MEDS: Acetaminophen 325 MG TAB 650 MG PO (14:03)
--- NOTE | 2023-09-22 15:36 | W.PM.HP.N ---
Date of service: 09/22/23 Time of Service: 15:37 Assessment and Plan Assessment and plan (1) Leukopenia: Status: Acute Assessment and plan: given his work on the [employer] and combination of thrombocytopenia, lymphocytopenia and elevated transaminases, suspsect tick borne disease; await tick panel, continue doxycycline, monitor labs (CMP and CBC) Qualifiers: Leukopenia type: lymphocytopenia Qualified Code(s): D72.810 - Lymphocytopenia (2) Thrombocytopenia: Status: Chronic Assessment and plan: as above, avoid NSAID, aspirin and avoid chemoprophylaxis for DVT, will use SCD (3) Elevated LFTs: Status: Acute Assessment and plan: as above, also check acute hepatitis panel and liver [place] (4) Hypokalemia: Status: Acute Assessment and plan: replace w/ oral and iv potassium; recheck later tonight (5) Pneumonia: Status: Suspected Assessment and plan: suspected based on his hypoxemia and cough, however, he tells me he has had chronic cough productive of white mucous for some time. I wonder if he has some undiagnosed COPD. Qualifiers: Pneumonia type: due to unspecified organism Laterality: unspecified laterality Lung location: unspecified part of lung Qualified Code(s): J18.9 - Pneumonia, unspecified organism (6) Diabetes mellitus: Status: Chronic Assessment and plan: continue metformin, add sliding scale low dose novolog, monitor glucose AC/HS, recent glycohemoglobin A1C was 7.0% as of 08/04/23. Qualifiers: Diabetes mellitus type: type 2 Diabetes mellitus terminal makeup operator insulin use: without senior care use Diabetes mellitus complication status: with neurologic complications Diabetes mellitus complication detail: with polyneuropathy Qualified Code(s): E11.42 - Type 2 diabetes mellitus with diabetic polyneuropathy (7) Essential hypertension: Status: Chronic Assessment and plan: continue toprol XL and losartan w/ HCTZ but needs chronic potassium replacment. (8) Left lumbar radiculopathy: Start date: 09/19/23 Status: Acute Assessment and plan: will check MRI of lower spine given recent onset of weakness in left leg (9) Hx of spinal fusion: History of Present Illness History of Present Illness Chief Complaint: weakness, loss of balance, hypoxemia Narrative: 88 yr old male w/ hx of type II DM, HTN, chronic lower back pain, remote lumbar fusion, who has been going to [employer] w/ [employer] for conditioning and work on his balance. Patient states that he has balance issues for several months and has worn orthotics (?AFO). He had been in his usual state of reasonably good health through last Thursday. 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 However over the weekened he did not feel well and noted increase weakness, increased cough w/ increase mucous production but no fevers or rigors. He lost his balance and fell at home yesterday and was on the floor overnight because he was too weak to get up. For past 4 days he has had increased pain in his left thigh w/ coughing and has noticed trouble lifting his left leg. Evaluation in the E.D. included CXR, CT head , left femur and left knee and hip xrays. 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 CT head showed no acute intracranial process. CXR reported by the E.D. provider as showing pneumonia but official reading was no definite acute process. Labs were remarkable for leukopenia w/ WBC 1500 but no neutropenia however he has absolute lymphocytopenia at 230. He also has thrombocytopenia at 16,000 but only mild anemia Hb 12.6 gm. He denies any epistaxis or hemoptysis or any hematuria. CMP demonstrated hypokalemia 3.1 but normal Mg 1.9 and elevated transaminases of AST 83, ALT 70, alkaline phosphatase 160, but normal total bilirubin 1.0. Pro BNP was mildly elevated at 1372 but two normal troponin I <50. Blood cultures and tick panel were drawn (although he does not recall any rashes or tick bites). He has been started on ceftriaxone and doxycycline pending tick panel and blood cultures. Review of Systems All systems reviewed & are unremarkable except as noted in HPI and below PFSH All Active Problems (Updated 09/22/23 @ 19:57 by Jordan Costa MD) Left lumbar radiculopathy (Acute) Elevated LFTs (Acute) Hypokalemia (Acute) Leukopenia (Acute) Thrombocytopenia (Chronic) Impacted cerumen of right ear (Acute) Visit for suture removal (Acute) Diabetic foot infection (Acute) Upper back pain (Acute) Impacted cerumen, left ear (Acute) Gait abnormality (Acute) Allergic rhinitis (Acute) Localized edema (Acute) Diabetic dermopathy (Acute) Back pain (Acute) Tinea pedis (Acute) Nail dystrophy (Acute) Central perforation of tympanic membrane of right ear (Acute) Sensorineural hearing loss of both ears (Acute) Bone cyst of right tibia (Acute) Pancreas cyst (Acute) GI at [facility] reported it did not appear cancerous Peripheral neuropathy (Chronic) both feet are insensate to monofilament. Limited sensation to light touch multifactorial due to back injury, and DM Hyperlipidemia (Chronic) Essential hypertension (Chronic) Diabetes mellitus (Chronic) Coronary atherosclerosis of mcgrath coronary vessel (Chronic) stent Medical History Right hand fracture ~2004 Pinned Right wrist fracture cast Otitis media Sepsis Pt reported Jan 2018 Community acquired pneumonia Pt reported Jan 2018 Polyp of colon, adenomatous hyperplastic Peripheral neuralgia Neural hearing loss, unilateral (07/25/13) Surgical History Hx of spinal fusion 1963 Lower spine, had a herniated disk that they removed per pt History of heart artery stent [facility] [place] Approximately 6+ years ago History of ear surgery Right ear 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 JENSEN MASTOID INCISION I&D Fracture, Open Treatment RIGHT TIBIA External hardware ~1962 Colonoscopy - MAC 2003 Appendectomy Family History Other Mixed hearing loss, unspecified Social History Smoking/Tobacco Use Status: Former Tobacco Use Tobacco: How many years used: 20 Second Hand Exposure: No Smoking risk assessment performed?: Yes Alcohol Intake: never Drug use: Never Housing: house Current gender identity: male Do you feel safe at home: Yes Do you feel safe in your relationship?: Yes Meds Allergies and Home Medications Allergies Allergy/AdvReac Type Severity Reaction Status Date / Time neomycin Allergy Intermediate SKIN RASH Verified 09/22/23 08:06 Sulfa (Sulfonamide Allergy Intermediate SKIN RASH Verified 09/22/23 08:06 Antibiotics) bacitracin Allergy Mild SKIN RASH Verified 09/22/23 08:06 miconazole Allergy Mild RASH Verified 09/22/23 08:06 gramicidin D Allergy Unknown SKIN RASH Verified 09/22/23 08:06 polymyxin B Allergy Unknown SKIN RASH Verified 09/22/23 08:06 Home Medications Medication Instructions Recorded Confirmed Type cranberry fruit concentrate 450 mg 450 mg PO DAILY 09/02/12 09/22/23 History capsule garlic 1 cap PO DAILY 09/02/12 09/22/23 History triamcinolone acetonide 0.5 % 1 pedro pablo topical BID PRN ##3 09/02/12 09/22/23 History topical ointment cetirizine 10 mg tablet (Zyrtec) 10 mg PO DAILY PRN 01/06/18 09/22/23 History guaifenesin 600 mg tablet, 600 mg PO BID #5 tabs 02/21/18 09/22/23 Rx extended release 12 hr (Mucinex) glucosamine 750 [id number] 1 tab PO DAILY 03/23/19 09/22/23 History no1 644 mg-C 30 mg-grover 1 mg tablet (Osteo Bi-Flex Triple Strength) acetaminophen 650 mg 650 mg PO Q6H PRN PRN pain #60 tabs 04/03/19 09/22/23 Rx tablet,extended release ibuprofen 600 mg tablet 600 mg PO TID PRN #90 tabs 04/03/19 09/22/23 Rx Relief Factor PO Shoulder and low back pain 02/17/22 09/11/23 History clotrimazole 1 % topical cream 1 applic topical .QD #30 grams 02/17/22 09/22/23 Rx (Lotrimin AF (clotrimazole)) triamcinolone acetonide 0.1 % 1 applic topical BID leg rash #30 03/04/22 09/22/23 Rx topical cream grams vitamin B12 500 mcg-folic acid 400 1 tab PO DAILY #90 tabs 05/12/22 09/22/23 Rx mcg tablet blood sugar diagnostic #100 strips 07/12/22 09/22/23 Rx nitroglycerin 0.4 mg sublingual 0.4 mg sublingual PRN ##25 10/16/22 09/22/23 Rx tablet (Nitrostat) metoprolol succinate 100 mg 100 mg PO DAILY #90 tabs 12/15/22 09/22/23 Rx tablet,extended release 24 hr metoprolol succinate 50 mg 50 mg PO DAILY #90 tabs 02/23/23 09/22/23 Rx tablet,extended release 24 hr alfuzosin 10 mg tablet,extended 10 mg PO DAILY #90 tabs 04/30/23 09/22/23 Rx release 24 hr losartan 100 1 tab PO DAILY #90 tab-caps 04/30/23 09/22/23 Rx mg-hydrochlorothiazide 25 mg tablet (Hyzaar) metformin 1,000 mg tablet 1,000 mg PO BID #180 tab-caps 04/30/23 09/22/23 Rx mupirocin 2 % topical ointment 1 applic topical TID #15 grams 06/16/23 09/22/23 Rx gabapentin 300 mg capsule See Rx Instructions .Route 07/14/23 09/22/23 Rx .COMPLEX #60 caps amlodipine 10 mg tablet 10 mg PO HS #90 tabs 08/04/23 09/22/23 Rx atorvastatin 20 mg tablet (Lipitor) 20 mg PO DAILY #90 tabs 08/04/23 09/22/23 Rx Exam Narrative Exam Narrative: Elderly white male alert, oriented x 3, no acute distress, not dyspneic HEENT: no epistaxis, no jaundice or icterus, full EOMI, normal speech Neck: no JVD, normal carotid pulses, no adenopathy Lungs: bibasilar rales, no rhonchi or wheezing Heart: RRR, no murmur or rub or gallop Abdomen: obese, soft, slightly distended, nontender, no palpable organomegaly or splenomegaly, normal bowel sounds Back/lumbar: scar from prior spinal fusion but nontender to palpation Legs: no edema, pedal pulses present but dminished; right leg and foot w/ normal ROM and strength, left foot w/ normal pedal dorsiflexion and plantar flexion but he has trouble lifitng his left leg off the bed, normal hand and arm strength Babinski not present on either foot; sensory decreased light sensation over right foot compared to left (he says this is chronic, both feet giving him some numbness for several months) Results Labs 09/22/23 11:04 09/22/23 17:05 Labs: Laboratory Results - last 24 hr 09/22/23 09/22/23 09/22/23 08:05 08:28 11:04 WBC 1.76 L* 1.50 L* RBC 4.47 4.46 Hgb 12.5 L 12.6 L Hct 39.5 L 39.4 L MCV 88 88 MCH 28.0 28.3 MCHC 31.6 L 32.0 RDW 13.7 13.7 Plt Count 18 L* 16 L* MPV 13.1 H Immature Gran % 0.0 0.0 Neutrophils % 68.0 75.0 Band Neutrophils % 11 9 Lymphocytes % 11.0 15.0 Atypical Lymphs % 2 Monocytes % 6.0 1.0 Eosinophils % 0.0 0.0 Basophils % 0.0 0.0 Other Cells % 2 Nucleated RBC % 0.0 0.0 Absolute Neutrophils 1.39 1.26 Absolute Lymphocytes 0.23 L 0.23 L Absolute Monocytes 0.11 0.02 L Absolute Eosinophils 0.00 0.00 Absolute Basophils 0.00 0.00 RBC Morphology Normal Normal VBG pH 7.33 VBG pCO2 56 H VBG pO2 22 VBG HCO3 29 H VBG Total CO2 27 VBG O2 Saturation 31 VBG Base Excess 3 VBG Lactate 1.5 H Sodium 138 Potassium 3.1 L Chloride 100 Carbon Dioxide 29.7 Anion Gap 8.3 BUN 38 H Creatinine 2.0 H Est GFR (CKD-EPI 2020) 31.51 Glucose 195 H Calcium 8.6 Magnesium 1.9 Total Bilirubin 1.0 AST 83 H ALT 70 H Alkaline Phosphatase 160 H Creatine Kinase 377 H Troponin I < 50 NT-Pro-B Natriuret Pep 1372 H Total Protein 6.3 L Albumin 2.9 L Procalcitonin 1.1 COVID-19 Source Nasopharynx SARS-CoV-2 (PCR) Negative Monoscreen Negative Influenza Type A (PCR) Negative Influenza Type B (PCR) Negative RSV (PCR) Negative 09/22/23 12:16 WBC RBC Hgb Hct MCV MCH MCHC RDW Plt Count MPV Immature Gran % Neutrophils % Band Neutrophils % Lymphocytes % Atypical Lymphs % Monocytes % Eosinophils % Basophils % Other Cells % Nucleated RBC % Absolute Neutrophils Absolute Lymphocytes Absolute Monocytes Absolute Eosinophils Absolute Basophils RBC Morphology VBG pH VBG pCO2 VBG pO2 VBG HCO3 VBG Total CO2 VBG O2 Saturation VBG Base Excess VBG Lactate Sodium Potassium Chloride Carbon Dioxide Anion Gap BUN Creatinine Est GFR (CKD-EPI 2020) Glucose Calcium Magnesium Total Bilirubin AST ALT Alkaline Phosphatase Creatine Kinase Troponin I < 50 NT-Pro-B Natriuret Pep Total Protein Albumin Procalcitonin COVID-19 Source SARS-CoV-2 (PCR) Monoscreen Influenza Type A (PCR) Influenza Type B (PCR) RSV (PCR) Last Vital Signs Temp 36.9 C 09/22/23 15:20 Pulse 73 09/22/23 15:20 Resp 18 09/22/23 15:20 BP 131/62 09/22/23 15:20 Pulse Ox 95 09/22/23 15:20 Time Spent Time spent with Patient: 55-74 minutes Time was spent: preparing to see the patient(eg.review tests), obtaining and/or reviewing separately otained hiistory, ordering medications,tests, procedures, referring, communicating with other health neonatal intensive care unit nurse, indepentently interpreting results, counseling the patient and care coordination
[2023-09-22] MEDS: Lactated Ringers 1,000 ML 150 ML IV (16:04)
[2023-09-22] MEDS: Albuterol/Ipratropium 3 ML UPD VIAL UPD ×2 (16:08→20:33)
--- NOTE | 2023-09-22 16:26 | PHA.REVIEW2 ---
Pharmacy Admission Review Admission Clinical Review Admission Pharmacy Review: (Updated 09/22/23 @ 16:00 by Elana Lopez) Elevated LFTs (Acute) Hypokalemia (Acute) Leukopenia (Acute) Pneumonia (Acute) neomycin Allergy (Intermediate, Verified 09/22/23 08:06) SKIN RASH Sulfa (Sulfonamide Antibiotics) Allergy (Intermediate, Verified 09/22/23 08:06) SKIN RASH bacitracin Allergy (Mild, Verified 09/22/23 08:06) SKIN RASH miconazole Allergy (Mild, Verified 09/22/23 08:06) RASH gramicidin D Allergy (Unknown, Verified 09/22/23 08:06) SKIN RASH polymyxin B Allergy (Unknown, Verified 09/22/23 08:06) SKIN RASH Resuscitation Status Full Code Height 6 ft Weight 93.168 kg Pharmacy Admission Review Renal Dosing Renal Dosing: BUN 38 mg/dL (7-18) H 09/22/23 08:05 Creatinine 2.0 mg/dL (0.70-1.30) H 09/22/23 08:05 Medications needing adjustments: Reviewed (CrCl 30.27 mL/min) List of meds needing interventions: Current medications are okay - if kidney function worsens will need to change enoxaparin to 30mg daily Anticoagulation Anticoagulation: Hgb 12.6 g/dL (13.5-17.5) L 09/22/23 11:04 Hct 39.4 % (40.0-50.0) L 09/22/23 11:04 Plt Count 16 10^3/uL (130-400) L* 09/22/23 11:04 Creatinine 2.0 mg/dL (0.70-1.30) H 09/22/23 08:05 DVT Prophylaxis: Reviewed Medications: Enoxaparin (40mg daily) Relevant Labs Relevant Labs: Sodium 138 mmol/L (136-145) 09/22/23 08:05 Potassium 3.1 mmol/L (3.5-5.1) L 09/22/23 08:05 Chloride 100 mmol/L (98-107) 09/22/23 08:05 Magnesium 1.9 mg/dL (1.8-2.4) 09/22/23 08:05 Electrolytes, C-Reactive P, ESR: Reviewed (K 3.1 - repleting and repeat pending, WBC 1.5, PLT count 16) DM Control DM Control: Glucose 195 mg/dL (74-106) H 09/22/23 08:05 DM Control: Reviewed Insulin Dosing, Diabetic Medication: Has order for metformin (home dose) Cardiac Review Cardiac Review: Troponin I < 50 ng/L (< or =60) 09/22/23 12:16 NT-Pro-B Natriuret Pep 1372 pg/mL (<300) H 09/22/23 08:05 BP, HR, EF%: Reviewed (BP/HR WNL) QTc Review QTc: Reviewed (EKG report pending) IV to PO Switch IV Medications: Reviewed (ceftriaxone and doxycycline) Home Meds Home Med List reviewed: Intervened Relevent Home Meds Not ordered & why?: Cetirizine, cranberry concentrate, garlic, glucosamine and triamcinolone Reached out to nursing to see if patients med alfuzosin could be brought in (put in as patient's own med order). Waiting to hear back. Current Meds Current Medication Order Review: Reviewed Pharmacy Antibiotic Review Relevant Labs: Relevant Labs 09/22/23 08:05 Procalcitonin 1.1 WBC 1.50 10^3/uL (4.4-10.8) L* 09/22/23 11:04 Procalcitonin 1.1 ng/mL 09/22/23 08:05 Temperature 36.9 C Temperature 37.0 C Pharmacy Antibiotic Activity: C/S review and Reviewed, no change Comments: Patient is on ceftriaxone and doxycycline day 1 for pneumonia. Blood cultures pending.
[2023-09-22 16:43] LABS: Bilirubin Negative (Negative); Blood Moderate (Negative); Clarity Clear (Clear); Glucose Negative (Negative); Ketones Negative (Negative); Leukocyte Esterase Negative (Negative); Nitrite Negative (Negative); Urobilinogen 0.2 mg/dL (Up to 0.2); pH 5.5 (5-8)
[2023-09-22 16:55] LABS: Bacteria Rare HPF (Negative); C & S Indicated? No; Crystals Moderate Amorphous HPF (Negative); Epithelial Cells Rare HPF (Negative); Mucus Negative (Negative); Other Cells Rare Transitional (Negative); RBC 0-2 HPF (0-2)
--- NOTE | 2023-09-22 17:09 | PT.INNT ---
PT Notes Visit Reasons: pneumonia,leukopenia,thrombocytopenia,transaminiti Patient with lab staff and is not available. Nurse Carlee agreeable to checking in patient tomorrow morning. Added that nursing staff walked with patient in room earlier and continues to report pain in thigh. Will plan on evaluation tomorrow morning, as ordered.
[2023-09-22 17:37] LABS: Potassium 2.6 mmol/L (3.5-5.1)
[2023-09-22] MEDS: metFORMIN 500 MG TAB 1000 MG PO (17:43)
[2023-09-22] MEDS: POTASSIUM CHLORIDE 20 MEQ/100 ML BAG 50 MEQ IVINF (18:33)
[2023-09-22] MEDS: Potassium Chloride 10 MEQ CAPCR 40 MEQ PO (18:33)
[2023-09-22 20:22] LABS: PTT Activated 31.3 sec (23.6-32.8); Prothrombin Time 10.2 sec (9.1-11.1)
[2023-09-22 20:32] LABS: D-Dimer 4660 ng/mlFEU (<500)
[2023-09-22] MEDS: amLODIPine 10 MG TAB PO (22:03)
[2023-09-22] MEDS: POTASSIUM CHLORIDE 20 MEQ/100 ML BAG 100 MEQ IVINF (22:03)
[2023-09-22] MEDS: Potassium Chloride 20 MEQ TABCR PO (22:03)
[2023-09-22] MEDS: Normal Saline Flush 10 ML SYR IVP (22:04)
[2023-09-22 22:19] LABS: Potassium 2.9 mmol/L (3.5-5.1)
[2023-09-22 22:20] LABS: Creatine Kinase 412 U/L (39-308)
[2023-09-22 22:27] LABS: Legionella Ag Detection Urine Negative (Negative)
[2023-09-22] MEDS: Mupirocin 2% Oint. 22 GM TUBE TP (22:59)
[2023-09-23] VITALS (14 sets, daily range): BP systolic 127–152; BP diastolic 67–85; PULSE 68–89; RESP 9–19; TEMP 36.5–37; O2SAT 91–99
[2023-09-23] MEDS: DOXYCYCLINE 100 MG in Normal Saline 100 ML IVPB ×3 (00:26→23:18)
[2023-09-23] MEDS: POTASSIUM CHLORIDE/0.9% NACL 1,000 ML 100 MEQ IV (02:38)
[2023-09-23 07:58] LABS: HCT 36.3 % (40.0-50.0); HGB 11.7 g/dL (13.5-17.5); MCH 28.2 pg (27.0-33.0); MCHC 32.2 % (32.0-36.0); MCV 88 fL (80-95); RBC 4.15 10^6/uL (4.36-5.78); RDW 13.7 % (11.8-14.1); RDW-SD 44.2 fL; WBC 2.05 10^3/uL (4.4-10.8)
--- NOTE | 2023-09-23 08:00 | DI.US_ITS ---
Exam(s) US ABDOMEN EXAM: US ABDOMEN CLINICAL HISTORY: elevated transaminases, r/o hepatic strx disease TECHNIQUE: Ultrasound abdomen performed using standard protocol. MR MR LUMBAR SPINE WO from 09/23/2023 FINDINGS: LIVER: Normal size and echogenicity. No focal liver lesions are seen. GALLBLADDER: No evidence of cholelithiasis. No evidence of wall thickening. No pericholecystic fluid identified. MOTTA'S SIGN: Negative. BILIARY SYSTEM: No intrahepatic or extrahepatic biliary ductal dilation. KIDNEYS: Kidneys are symmetric in size. No evidence of renal calculi. No evidence of hydronephrosis. No suspicious renal mass identified. Renal cysts. PANCREAS: Normal where visualized. Body and tail obscured by bowel gas. SPLEEN: Not enlarged. ABDOMINAL AORTA AND IVC: Visualized portions normal caliber. ASCITES: None seen. IMPRESSION: Bilateral renal cysts, otherwise negative. DATA REPOSITORY:
[2023-09-23 08:22] LABS: ALT 62 U/L (16-63); AST 71 U/L (15-37); Albumin 2.5 g/dL (3.4-5.0); Alkaline Phosphatase 162 U/L (46-116); Anion Gap 9.6 mmol/L (3-11); BUN 32 mg/dL (7-18); Bilirubin, Total 0.7 mg/dL (0.2-1.0); CO2 27.4 mmol/L (21.0-32.0); CREATININE 1.3 mg/dL (0.70-1.30); Calcium 8.4 mg/dL (8.5-10.1); Chloride 103 mmol/L (98-107); Estimated GFR 52.84 (mL/min/1.73m2); Glucose 126 mg/dL (74-106); Potassium 3.6 mmol/L (3.5-5.1); Sodium 140 mmol/L (136-145); Total Protein 5.9 g/dL (6.4-8.2)
[2023-09-23] MEDS: Albuterol/Ipratropium 3 ML UPD VIAL UPD ×4 (08:23→20:29)
[2023-09-23 08:44] LABS: Absolute Lymphocyte Count 0.82 10^3/uL (1.2-3.4); Absolute Neutrophil Count 1.19 10^3/uL (1.2-6.7); Atypical Lymphocytes % 4 %; Bands % 3 %; Platelet Count 19 10^3/uL (130-400)
[2023-09-23 08:45] LABS: Absolute Monocyte Count 0.02 10^3/uL (0.1-0.8); Diff Comment Manual Differential; RBC Morphology Normal
[2023-09-23] MEDS: Metoprolol CR 50 MG TABCR PO (09:00)
[2023-09-23] MEDS: Metoprolol CR 100 MG TABCR PO (09:00)
[2023-09-23] MEDS: metFORMIN 500 MG TAB 1000 MG PO (09:00)
[2023-09-23] MEDS: Potassium Chloride 20 MEQ TABCR PO ×2 (09:00→19:43)
[2023-09-23] MEDS: Losartan 50 MG TAB 100 MG PO (09:00)
[2023-09-23] MEDS: Normal Saline Flush 10 ML SYR IVP ×3 (09:01→23:22)
[2023-09-23] MEDS: Mupirocin 2% Oint. 22 GM TUBE TP (09:01)
[2023-09-23] MEDS: hydroCHLOROthiazide 25 MG TAB PO (09:01)
[2023-09-23] MEDS: Atorvastatin 20 MG TAB PO (09:01)
[2023-09-23] MEDS: Cyanocobalamin 500 MCG TAB PO (09:01)
[2023-09-23] MEDS: Clotrimazole 1% 15 GM TUBE TP (09:02)
[2023-09-23] MEDS: cefTRIAXone 2 GM/50 ML BAG IVPB (09:21)
[2023-09-23 10:51] LABS: Lyme Ab w Rflx to Lyme Confirm Negative (Negative)
--- NOTE | 2023-09-23 10:55 | DI.MRI_ITS ---
Exam(s) MR LUMBAR SPINE WO EXAM: MR LUMBAR SPINE WO CLINICAL HISTORY: back pain, left radiculpathy, left leg weakness. TECHNIQUE: Imaging Protocol: Axial computed tomography images with coronal and sagittal reformatted images were created and reviewed COMPARISON: MR MRI - LUMBAR SPINE WO CONTRAST from 08/02/2012 CR XR FEMUR LT from 09/22/2023 FINDINGS: Bones: The last intervertebral disc space is designated the L5/S1 level for the numbering purpose of this examination. The vertebral body heights are well maintained. Alignment: Mild degenerative scoliosis. No fracture is seen. T12-L1: No disc herniations or bulges are present. L1-2: Mild disc bulging eccentric toward the left. Mild left neural foraminal narrowing. L2-3: Mild disc bulging. Mild bilateral neural foraminal narrowing. L3-4: Mild loss of disc height. Broad-based disc osteophytes. Facet degenerative changes and ligam entous hypertrophy combine to produce mild central canal stenosis. There is severe bilateral neural foraminal narrowing. L4-5: Mild disc bulging. Mild facet degenerative changes. Mild bilateral neural foraminal narrowin g. L5-S1: Postsurgical deformities of the posterior elements. Loss of normal disc height. Minimal end plate osteophytes. No significant neural foraminal narrowing. The visualized SI joints and sacrum are will maintained. Soft Tissues: The paraspinal soft tissues are unremarkable. Renal cysts are noted bilaterally. IMPRESSION: Degenerative disc changes and facet degenerative changes at L3-4 combine to produce severe bilateral neural foraminal narrowing as well as mild central canal stenosis. RADIATION DOSE DELIVERED: Total DLP DATA REPOSITORY: All CT scans at this facility are submitted to the National Radiology Data Registry (NRDR) Dose Index Registry (DIR) with the [employer] (A[employer]). RADIATION OPTIMIZATION: All CT scans at this facility use at least one of these dose optimization te chniques: automated exposure control; mA and/or kV adjustment per patient size (includes targeted exa ms where dose is matched to clinical indication); or iterative reconstruction.
--- NOTE | 2023-09-23 10:55 | PT.INNT ---
PT Notes Visit Reasons: Pneumonia,Leukopenia,Thrombocytopenia,Transaminiti At MRI and then US later this morning. Will check in again on patient this afternoon for evaluation, as ordered.
[2023-09-23] MEDS: Insulin Aspart 300 UNITS/3 ML PEN SC ×3 (13:05→22:37)
--- NOTE | 2023-09-23 14:42 | PGE_ITS ---
Date of Service Date of service: 09/23/23 Time of Service: 14:42 Assessment and Plan Assessment and plan (1) Acute hypoxemic respiratory failure: Status: Acute Assessment and plan: patient has had months of chronic cough usually productive of clear to white mucous but now more recently w/ some yellow tinge and more productive than usual. He has had no fever or rigors but has felt ill since the weekend, (felt fine on Thursday when helping his brother w/ loading hay into truck). However presented w/ fatigue general weakness, and dyspnea and was found to be thrombocytopenic (platletlet 16,000), lymphocytopenic total WBC 1500, lymphs 230) but only borderline anemic Hb 12 gm and mild transaminitis Today his labs are improving, renal function improved w/ iv fluids (which I will dc now, he is taking po well) and his platelets and lymphocytopenia while not resolved are improving. He is on doxycycline and rocephin but unclear what we are treating. Tick panel was sent off although he does not recall any recent tick bites (although he was working in the barn w/ his brother last Thursday). The ED provider thought that he had pneumonia but none was seen on his CXR. However his d-dimer was markedly elevated last night (no one was called about this and no CTA was done). I will check CTA of his chest as he is still mildly hypoxic and needing supplemental oxygen. Now that he has been hydrated, we may see a pneumonia or a P.E. needs to be ruled out. continue doxycycline 100 mg iv q12h and rocephin 2 gm iv daily, check repeat procalcitonin level (was indeterminate at 1.1 yesterday). (2) Pneumonia: Status: Suspected Assessment and plan: no definite evidence for pneumonia; FLUVID screen was negative. will check CTA chest Qualifiers: Laterality: unspecified laterality Lung location: unspecified part of lung Pneumonia type: due to unspecified organism Qualified Code(s): J18.9 - Pneumonia, unspecified organism (3) Leukopenia: Status: Acute Assessment and plan: improving Qualifiers: Leukopenia type: lymphocytopenia Qualified Code(s): D72.810 - Lymphocytopenia (4) Thrombocytopenia: Status: Chronic Assessment and plan: improving, now at 19,000, continue to monitor, avoid enoxaparin or heparin for DVT prophylaxis (5) Elevated LFTs: Status: Acute (6) Left lumbar radiculopathy: Status: Acute (7) Hypokalemia: Status: Acute Assessment and plan: improved, continue oral supplementation (8) Diabetes mellitus: Status: Chronic Assessment and plan: continue novolog sliding scale; hold metformin in light of his CTA, recheck renal function daily and resume metformin after 24h Qualifiers: Diabetes mellitus complication detail: with polyneuropathy Diabetes mellitus complication status: with neurologic complications Diabetes mellitus mcfp insulin use: without general manager farm use Diabetes mellitus type: type 2 Qualified Code(s): E11.42 - Type 2 diabetes mellitus with diabetic polyneuropathy Subjective Subjective Interval history since last seen: Patient states that he has been coughing up some more mucous. He says that this has been going on for several months but worse recently. CXR on admission did not show pneumonia Exam Narrative Exam Narrative: Orlando is alert, oriented sitting up in bed watching TV, no acute distress Lungs: coarse bibasilar rales R >L, no rhonchi or wheezing Heart: RRR Abdomen: obese, soft, nontender Lower back w/out tenderness to palpation Extremities: no edema. he seems to have some better movement in his left leg, he was able to sit up in bed and swing his legs over edge of bed but still has pain w/ radiation into his left thigh Objective Last Vital Signs Temp 36.5 C 09/23/23 14:35 Pulse 87 09/23/23 14:35 Resp 18 09/23/23 14:35 BP 146/74 H 09/23/23 14:35 Pulse Ox 91 L 09/23/23 14:35 Laboratory Results - last 24 hr 09/22/23 09/22/23 09/22/23 16:09 17:05 19:50 WBC RBC Hgb Hct MCV MCH MCHC RDW Plt Count MPV Immature Gran % Neutrophils % Band Neutrophils % Lymphocytes % Atypical Lymphs % Monocytes % Eosinophils % Basophils % Nucleated RBC % Absolute Neutrophils Absolute Lymphocytes Absolute Monocytes Absolute Eosinophils Absolute Basophils RBC Morphology PT 10.2 INR 1.0 APTT 31.3 D-Dimer 4660 H Sodium Potassium 2.6 L* Chloride Carbon Dioxide Anion Gap BUN Creatinine Est GFR (CKD-EPI 2020) Glucose Calcium Total Bilirubin AST ALT Alkaline Phosphatase Creatine Kinase Total Protein Albumin Urine Color Yellow Urine Clarity Clear Urine pH 5.5 Ur Specific [place] 1.020 Urine Protein 100 H Urine Ketones Negative Urine Blood Moderate H Urine Nitrite Negative Urine Bilirubin Negative Urine Urobilinogen 0.2 Ur Leukocyte Esterase Negative Urine RBC 0-2 Urine WBC 3-5 Ur Epithelial Cells Rare Urine Crystals Moderate Amorphous Urine Bacteria Rare Urine Casts 5-10 Fine Granular Urine Mucus Negative Urine Other Rare Transitional Ur Culture Indicated? No Urine Glucose Negative Urine Legionella Ag Negative 09/22/23 09/23/23 21:55 07:06 WBC 2.05 L RBC 4.15 L Hgb 11.7 L Hct 36.3 L MCV 88 MCH 28.2 MCHC 32.2 RDW 13.7 Plt Count 19 L* MPV Immature Gran % 0.0 Neutrophils % 55.0 Band Neutrophils % 3 Lymphocytes % 36.0 Atypical Lymphs % 4 Monocytes % 1.0 Eosinophils % 0.0 Basophils % 0.0 Nucleated RBC % 0.0 Absolute Neutrophils 1.19 L Absolute Lymphocytes 0.82 L Absolute Monocytes 0.02 L Absolute Eosinophils 0.00 Absolute Basophils 0.00 RBC Morphology Normal PT INR APTT D-Dimer Sodium 140 Potassium 2.9 L* 3.6 Chloride 103 Carbon Dioxide 27.4 Anion Gap 9.6 BUN 32 H Creatinine 1.3 Est GFR (CKD-EPI 2020) 52.84 Glucose 126 H Calcium 8.4 L Total Bilirubin 0.7 AST 71 H ALT 62 Alkaline Phosphatase 162 H Creatine Kinase 412 H Total Protein 5.9 L Albumin 2.5 L Urine Color Urine Clarity Urine pH Ur Specific [place] Urine Protein Urine Ketones Urine Blood Urine Nitrite Urine Bilirubin Urine Urobilinogen Ur Leukocyte Esterase Urine RBC Urine WBC Ur Epithelial Cells Urine Crystals Urine Bacteria Urine Casts Urine Mucus Urine Other Ur Culture Indicated? Urine Glucose Urine Legionella Ag Time Spent with Patient Time Spent with Patient: 35-49 minutes Time was spent: preparing to see the patient(eg.review tests), obtaining and/or reviewing separately otained hiistory, ordering medications,tests, procedures, referring, communicating with other health intensive care anaesthetist, indepentently interpreting results, counseling the patient and care coordination
--- NOTE | 2023-09-23 15:00 | DI.CT_ITS ---
Exam(s) CT CHEST PE CTA EXAM: CT CHEST PE CTA CLINICAL HISTORY: dyspnea, hypoxemia, elevated d-dimer. TECHNIQUE: Imaging Protocol: Axial CT angiography was performed with multi-slice acquisition and mu lti-planar and/or 3D reconstructions. CONTRAST MATERIAL: Intravenous: Omnipaque 350 contrast volume:100 mL FINDINGS: Tracheobronchial tree: Patent where visualized. Pulmonary parenchyma: There are infiltrates seen in the dependent portions of the lungs which may rep resent atelectasis. Pneumonia cannot be excluded. The lungs are otherwise clear. No architectural distortion. Pulmonary Arteries: No evidence of filling defect to suggest pulmonary emboli. Mediastinum and Roseann: No dominant adenopathy or fluid collection. The esophagus is unremarkable. Th ere is a moderate size hiatal hernia. Visualized thyroid gland: Unremarkable. Pleura: Tiny pleural effusions are seen bilaterally. There again seen calcific pleural plaques. No pneumothorax. Heart: Mild cardiomegaly. Mitral calcification is present. Coronary artery calcification is seen. No pericardial effusion. 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 Aorta: Thoracic aorta non-dilated. No evidence of dissection. Atherosclerotic calcification is presen t. Upper abdomen: Unremarkable. Soft tissues: Unremarkable. Bones: Within normal limits for the patient's age. IMPRESSION: 1. No evidence of pulmonary embolism, thoracic aortic dissection or aneurysm. 2. Bilateral basilar infiltrates which may represent atelectasis. Pneumonia cannot be excluded. 3. Tiny bilateral pleural effusions. RADIATION DOSE DELIVERED: 468.6mGy.cm Total DLP DATA REPOSITORY: All CT scans at this facility are submitted to the National Radiology Data Registry (NRDR) Dose Index Registry (DIR) with the [employer] (ACR). RADIATION OPTIMIZATION: All CT scans at this facility use at least one of these dose optimization te chniques: automated exposure control; mA and/or kV adjustment per patient size (includes targeted exa ms where dose is matched to clinical indication); or iterative reconstruction.
[2023-09-23 15:35] LABS: Lab Add On Test DONE
[2023-09-23] MEDS: Normal Saline - Diluent 50 ML VIAL IJ (15:48)
[2023-09-23 15:49] LABS: Creatine Kinase 396 U/L (39-308)
[2023-09-23] MEDS: Omnipaque 350 MG/ML 100 ML BTL IJ (15:49)
--- NOTE | 2023-09-23 17:11 | INITIAL_ITS ---
Date of service: 09/23/23 Time of Service: 17:11 Care Management Initial Assmt Initial Assessment Reason for Hospitalization: Pneumonia, leukopenia, thrombocytopenia, transaminitis Functional Status/Living Situation Patient Presentation: Orlando was sleeping soundly, CM wrote contact information on white board. Town of Residence: [facility] Resides with: Alone Natural Supports: Brother, Luis Enrique and [id number] Tamera. Employment Status: Retired Medications Medication Management: No Issues/Barriers identified Physical Functioning/Mobility Assistive Device: Anticipate possible order for FWW on discharge. Advance Directives Advance Directives: Do you have an Advance Directive: N 07/18/21 13:38 AD On File at [facility]: N 07/18/21 13:38 Date Asked 09/22/23 09/23/23 07:49 AD Date Reviewed COLST On File at [facility] COLST Date Scanned Code Status Resuscitation Status Full Code Insurance Coverage/Financial Issues Insurance: Medicare AARP ACO Member: Yes Care Team Visit Care Team Role Provider Type Jarrod Gorman MD Primary Care Provider [facility] STAFF PHYSICIAN InPatient [facility] Other Providers OTHER Elana Lopez Emergency Provider NURSE PRACTITIONER Jordan Costa MD Admit Provider [facility] STAFF PHYSICIAN Attending Provider Discharge Potential Discharge Needs: PT Evaluation Patient/Family Education Needs: Review discharge instructions, discuss Ask Me Three Transportation: Private vehicle Plan: [place] will be evaluated by PT prior to discharge; per recommendations anticipate new orders for HH/PT. He will follow up with his PCP and plan of care as prescribed and transport via private vehicle with family. No additional services antiicpated, CM continues to follow. PFSH All Active Problems (Updated 09/23/23 @ 15:06 by Jordan Costa MD) Acute hypoxemic respiratory failure (Acute) Left lumbar radiculopathy (Acute) Elevated LFTs (Acute) Hypokalemia (Acute) Leukopenia (Acute) Thrombocytopenia (Chronic) Impacted cerumen of right ear (Acute) Visit for suture removal (Acute) Diabetic foot infection (Acute) Upper back pain (Acute) Impacted cerumen, left ear (Acute) Gait abnormality (Acute) Allergic rhinitis (Acute) Localized edema (Acute) Diabetic dermopathy (Acute) Back pain (Acute) Tinea pedis (Acute) Nail dystrophy (Acute) Central perforation of tympanic membrane of right ear (Acute) Sensorineural hearing loss of both ears (Acute) Bone cyst of right tibia (Acute) 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 JENSEN MASTOID INCISION I&D Fracture, Open Treatment RIGHT TIBIA External hardware ~1962 Colonoscopy - MAC 2003 Appendectomy Family History Other Mixed hearing loss, unspecified Social History Smoking/Tobacco Use Status: Former Tobacco Use Tobacco: How many years used: 20 Second Hand Exposure: No Smoking risk assessment performed?: Yes Alcohol Intake: never Drug use: Never Housing: house Current gender identity: male Do you feel safe at home: Yes Do you feel safe in your relationship?: Yes SDOH(Care Management) Screening Will the Patient Participate in the Screening?: Yes Do you worry about having a steady place to live?: no In the past 12 months, have you had to go without electric, gas, oil or water in your home?: no Have you or anyone in your house had to go without enough food to eat?: no Has lack of transportation kept you from medical appointments or from doing things needed for daily living?: no Has anyone in your support network made you feel unsafe for any reason?: no Anticipated HH Services Anticipated HH Services at Discharge [facility] Needed, PT. Anticipated Date of Discharge: 09/25/23. Following Provider: Jarrod Gorman.
--- NOTE | 2023-09-23 17:36 | PT.INIE ---
PT Notes Visit Reasons: Pneumonia,Leukopenia,Thrombocytopenia,Transaminiti Physical Therapy Inpatient Initial Evaluation Date: 09/23/2023 Referring Doctor: Jordan Costa MD PT Orders: PT CONSULT: Fall safety assessment Precautions: Fall. Standard. Activity as tolerated. Patient Profile/Admitting Diagnosis: Shady is an 88-year-old male who presented to the ED on 09/22/2023 due to generalized weakness, left thigh pain for the last 4 days, chills 2 days prior and a fell fall due to poor balance falling on his left side. X-ray to the left hip and knee were both unremarkable as was CT of the head. Patient is admitted under acute level of care for management of acute hypoxemic respiratory failure, diabetes mellitus, thrombocytopenia, hypokalemia, left lumbar radiculopathy, pneumonia, and leukopenia. PMHX: All Active Problems (Updated 09/22/23 @ 19:57 by Jordan Costa MD) Left lumbar radiculopathy (Acute) Elevated LFTs (Acute) Hypokalemia (Acute) Leukopenia (Acute) Thrombocytopenia (Chronic) Impacted cerumen of right ear (Acute) Visit for suture removal (Acute) Diabetic foot infection (Acute) Upper back pain (Acute) Impacted cerumen, left ear (Acute) Gait abnormality (Acute) Allergic rhinitis (Acute) Localized edema (Acute) Diabetic dermopathy (Acute) Back pain (Acute) Tinea pedis (Acute) Nail dystrophy (Acute) Central perforation of tympanic membrane of right ear (Acute) Sensorineural hearing loss of both ears (Acute) Bone cyst of right tibia (Acute) Pancreas cyst (Acute) GI at [facility] reported it did not appear cancerous Peripheral neuropathy (Chronic) both feet are insensate to monofilament. Limited sensation to light touch multifactorial due to back injury, and DM Hyperlipidemia (Chronic) Essential hypertension (Chronic) Diabetes mellitus (Chronic) Coronary atherosclerosis of [place] coronary vessel (Chronic) stent Medical History Right hand fracture ~2004 Pinned Right wrist fracture cast Otitis media Sepsis Pt reported Jan 2018 Community acquired pneumonia Pt reported Jan 2018 Polyp of colon, adenomatous hyperplastic Peripheral neuralgia Neural hearing loss, unilateral (07/25/13) Surgical History Hx of spinal fusion 1963 Lower spine, had a herniated disk that they removed per pt History of heart artery [place] [facility] [place] ago History of ear surgery Right ear 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 JENSEN MASTOID INCISION I&D Fracture, Open Treatment RIGHT TIBIA External hardware ~1962 Colonoscopy - MAC 2004 Appendectomy Social History/Home Situation: Lives alone in a private home with 3-4 steps to enter. Modified independent with use of SPC indoors and outdoors. Was going to [facility] OP clinic under the minimally supervised program 2-3x/week. Equipment Owned/DME: SPC, FWW Subjective: I cannot lift and bend my knee because it hurts me but not as much as it did yesterday. The haying must really have done me because I did it right after I came from PT. Objective: General Observation: Resting in bed. Telemetry monitoring in place. On oxygen supplementation at 1L/minute via NC Mental Status: Alert and oriented as to person, place, time, and purpose. Able to pay attention, focus, and respond appropriately. Pain: 4-5/10 with SLR Vital Signs: Closely monitored by Nurse Trevizo and nursing staff ROM: Right Upper Extremity: Shoulder Flexion WFL. Shoulder abduction WFL. Elbow flexion WFL. Wrist flexion WFL. Functional opening and closing of hand WFL. Left Upper Extremity: Shoulder Flexion WFL. Shoulder abduction WFL. Elbow flexion WFL. Wrist flexion WFL. Functional opening and closing of hand WFL. Right Lower Extremity: Hip flexion allows only up to 20 degrees limited by pain. Hip abduction WFL. Knee flexion allows about 30 degrees bofore onset of pain. Ankle dorsiflexion to neutral only. Ankle plantarflexion WFL. Left Lower Extremity: Hip flexion WFL. Hip abduction WFL. Knee flexion WFL. Ankle dorsiflexion to neutral only. Ankle plantarflexion WFL. Strength: Right Upper Extremity: Shoulder flexors 4-/5. Shoulder abductors 4-/5. Elbow flexors 4-/5. Elbow extensors 4-/5. Code Enforcement Officer strong. Left Upper Extremity: Shoulder flexors 4-/5. Shoulder abductors 4-/5. Elbow flexors 4-/5. Elbow extensors 4-/5. Code Enforcement Officer strong. Right Lower Extremity: Hip flexors 4-/5. Hip abductors 4-/5. Knee flexors 4-/5. Knee extensors 4-/5. Ankle dorsiflexors 3-/5. Ankle plantarflexors 4-/5. Left Lower Extremity: Hip flexors 3-/5. Hip abductors 3-/5. Knee flexors 4-/5. Knee extensors 3-/5. Ankle dorsiflexors 3-/5. Ankle plantarflexors 4-/5. Bed Mobility/Transfers: Minimal cueing provided for use of B hands as needed for support, movement sequence, AD management, and posture to reduce fall risk and minimize pain report Supine to sit minimal assist Sit to supine minimal assist to R LE Sit to stand contact guard assist with FWW Stand to sit contact guard assist with FWW Gait: Facilitated safe and correct performance of level surface ambulation covering a distance of 300 feet using front wheeled walker with contact-guard assist and wheelchair follow without report of increased pain in the left thigh and knee. No shortness of breath. No loss of balance. Reported increased ability using front wheeled walker. Minimal cueing provided for AD management and posture. Balance: Static Sitting: Normal Dynamic Sitting: Normal Static Standing: Fair Dynamic Standing: Fair Special Tests: Mobility Limitations Standardized Measure [facility] AM-PAC 6 clicks Basic Mobility Inpatient Short Form: Raw Score: 18 CMS Score: 47% deficit L SLR: Unable 4-Stage Balance Test: 10 seconds feet together, <10 seconds for semi-tandem, full tandem and one-legged stance Informed Consent/Education: Patient was instructed in purpose of PT consult and plan of care. Agreeable to proceed with established PT POC to achieve personal goals. Assessment: May also have sustained minor L quad strain when he fell compunded by L3-L4 radiculopathy resulting to weakness of L hip and knee flexion. Generalized weakness and functional mobility decline resulting from admitting diagnoses above. Patient presents with clinical signs and symptoms consistent with current/admitting diagnoses that have resulted to mobility limitations, gait instability, generalized weakness, and overall ADL decline as demonstrated by the following impairment level findings: 1. Decreased strength to B UE/LE major muscle groups L LE>>R LE 2. Impaired standing balance 3. Impaired activity tolerance 4. Limitation of joint range of motion in L hip flexion and L knee flexion Impairments are contributing to the following functional limitations: 1. Decline in bed mobility skills 2. Decline in transfer skills 3. Difficulty with ambulation without assistive device and physical assistance 4. Increased completion time for mobility ADL performance 5. Increased risk for falls 6. Difficulty with managing steps alone safely Patient is assessed as a 85394 moderate complexity based on the following: History: 88-year-old male with past medical history as indicated above Examination: Demonstrable impairment in strength, balance, and mobility level with underlying impairments and functional limitations as exhibited above as well as deficit score of 47% utilizing the [facility] Mobility Inpatient Short Form Presentation: Evolving Decision Makin moderate complexity Goals: Goals X1 week 1. Supine-Sit independent 2. Sit-Supine independent 3. Sit-Stand independent 4. Stand-Sit independent with FWW 5. Bed-Chair independent with FWW 6. Chair-Bed independent with FWW 7. Independent gait on level surface with use of FWW for at least 300 feet without report of pain nor dyspnea 8. Independent stair negotiation while holding onto B rails for at least 5 steps without report of pain nor dyspnea 9. Independent with home exercise program 10. Good static and dynamic standing balance/tolerance Plan of Care/Treatment Plan: 1-2x/day, 7 days/week x 1 week. Plan of care has been reviewed with the GEODETIC SURVEYOR providing the service under Physical Therapy direction. Initiate Physical Therapy intervention for pain management as needed, strengthening, bed mobility, transfers, gait, stairs, balance training, and use of assistive device. DISCHARGE RECOMMENDATIONS: [] Home with no services [] [X] Home with services. Patient will benefit from home health PT services in order to progress mobility level using least restrictive assistive ambulatory device, assess home safety, identify additional equipment needs, and establish a functional maintenance program that will increase ability of patient to remain at home. [] Home with outpatient PT [] [] SNF for continued rehabilitation [] [] [facility] Care [] [] SNF versus LTC based on ability to participate and progress [] TREATMENT CODE/TIME: 9716 2 x 20 minutes for 1 unit, 9753 0 x 19 minutes for 1 unit (16:48-17:27). Thank you for the opportunity to participate in the care of this patient. Leslye Rutledge PT, DPT, CLT [facility] [employer], [place]
[2023-09-23 18:51] LABS: Hepatitis A Antibody IgM Negative (Negative); Hepatitis B Core Antibody Negative (Negative); Hepatitis B surface Ag Negative (Negative); Hepatitis C Ab w Rflx HCV PCR Negative (Negative)
[2023-09-23] MEDS: amLODIPine 10 MG TAB PO (19:43)
[2023-09-23 23:50] LABS: Streptococcus Pneumoniae Ag, U Negative (Negative)
[2023-09-24] VITALS (12 sets, daily range): BP systolic 131–143; BP diastolic 66–76; PULSE 58–78; RESP 2–18; TEMP 36.2–36.9; O2SAT 92–98
[2023-09-24 07:23] LABS: HCT 36.1 % (40.0-50.0); HGB 11.8 g/dL (13.5-17.5); MCH 27.8 pg (27.0-33.0); MCHC 32.7 % (32.0-36.0); MCV 85 fL (80-95); RBC 4.24 10^6/uL (4.36-5.78); RDW 13.7 % (11.8-14.1); RDW-SD 42.7 fL; WBC 4.26 10^3/uL (4.4-10.8)
[2023-09-24 07:40] LABS: ALT 58 U/L (16-63); AST 57 U/L (15-37); Albumin 2.6 g/dL (3.4-5.0); Alkaline Phosphatase 173 U/L (46-116); Anion Gap 7.3 mmol/L (3-11); BUN 23 mg/dL (7-18); Bilirubin, Total 0.6 mg/dL (0.2-1.0); CO2 28.7 mmol/L (21.0-32.0); CREATININE 1.1 mg/dL (0.70-1.30); Calcium 8.6 mg/dL (8.5-10.1); Chloride 102 mmol/L (98-107); Estimated GFR 64.57 (mL/min/1.73m2); Glucose 167 mg/dL (74-106); Potassium 3.2 mmol/L (3.5-5.1); Sodium 138 mmol/L (136-145); Total Protein 5.9 g/dL (6.4-8.2)
[2023-09-24] MEDS: Albuterol/Ipratropium 3 ML UPD VIAL UPD ×4 (07:40→19:31)
[2023-09-24 08:01] LABS: Procalcitonin 0.4 ng/mL
[2023-09-24 08:42] LABS: Absolute Lymphocyte Count 1.49 10^3/uL (1.2-3.4); Absolute Monocyte Count 0.26 10^3/uL (0.1-0.8); Absolute Neutrophil Count 2.51 10^3/uL (1.2-6.7); Atypical Lymphocytes % 12 %; Bands % 1 %; Diff Comment Manual Differential; Platelet Count 45 10^3/uL (130-400); RBC Morphology Normal
[2023-09-24] MEDS: Potassium Chloride 20 MEQ TABCR PO ×4 (09:30→19:55)
[2023-09-24] MEDS: Insulin Aspart 300 UNITS/3 ML PEN SC ×4 (09:31→21:52)
[2023-09-24] MEDS: Atorvastatin 20 MG TAB PO (09:31)
[2023-09-24] MEDS: Metoprolol CR 100 MG TABCR PO (09:31)
[2023-09-24] MEDS: Cyanocobalamin 500 MCG TAB PO (09:31)
[2023-09-24] MEDS: hydroCHLOROthiazide 25 MG TAB PO (09:31)
[2023-09-24] MEDS: Losartan 50 MG TAB 100 MG PO (09:31)
[2023-09-24] MEDS: Metoprolol CR 50 MG TABCR PO (09:31)
[2023-09-24] MEDS: Normal Saline Flush 10 ML SYR IVP ×3 (09:32→21:46)
[2023-09-24] MEDS: cefTRIAXone 2 GM/50 ML BAG IVPB (09:32)
--- NOTE | 2023-09-24 10:59 | PT.INTREAT ---
PT Notes Visit Reasons: Pneumonia,Leukopenia,Thrombocytopenia,Transaminiti Physical Therapy Inpatient Treatment Note Date: 09/24/2023 Precautions: Fall. Standard. Activity as tolerated. Subjective: Feels a lot better. Knows that he may need to use his walker at home for the next few days. Reported minimal pain in the L thigh now. Objective: General Observation: Resting in bed. Telemetry monitoring in place. Mental Status: Alert and oriented as to person, place, time, and purpose. Able to pay attention, focus, and respond appropriately. Pain: 2-3/10 on the L thigh Vital Signs: Closely monitored by nursing staff Bed Mobility/Transfers: Minimal cueing provided for use of B hands as needed for support, movement sequence, AD management, and posture to reduce fall risk and minimize pain report Sit to stand stand by assist with FWW Stand to sit stand by assist with FWW Gait: Facilitated safe and correct performance of level surface ambulation covering a distance of 300 feet using front wheeled walker with stand by assist and wheelchair follow without report of increased pain in the left thigh and knee. No shortness of breath. No loss of balance. Reported increased ability using front wheeled walker. Minimal cueing provided for AD management and posture. Stairs: Up and down 6 x 4-inch steps and 4 x 6-inch steps while holding onto B rails with step-to gait pattern requiring contact guard assist and moderate cueing for limb sequence to minimize pain report in L LE. Balance: Static Sitting: Normal Dynamic Sitting: Normal Static Standing: Fair Dynamic Standing: Fair Assessment: Activity tolerance improving. Pain level decreased. Able to do more with use of FWW. Plan of Care/Treatment Plan: 1-2x/day, 7 days/week x 1 week. Plan of care has been reviewed with the NUT BLANKER OPERATOR providing the service under Physical Therapy direction. Initiate Physical Therapy intervention for pain management as needed, strengthening, bed mobility, transfers, gait, stairs, balance training, and use of assistive device. DISCHARGE RECOMMENDATIONS: [] Home with no services [] [X] Home with services. Patient will benefit from home health PT services in order to progress mobility level using least restrictive assistive ambulatory device, assess home safety, identify additional equipment needs, and establish a functional maintenance program that will increase ability of patient to remain at home. [] Home with outpatient PT [] [] SNF for continued rehabilitation [] [] Senior Living Care [] [] SNF versus LTC based on ability to participate and progress [] TREATMENT CODE/TIME: 9753 0 x 28 minutes for 2 units (10:59-11:27).
[2023-09-24] MEDS: DOXYCYCLINE 100 MG in Normal Saline 100 ML IVPB ×2 (12:35→23:56)
--- NOTE | 2023-09-24 12:46 | W.PM.PROGNOT ---
Date of Service Date of service: 09/24/23 Time of Service: 12:46 Assessment and Plan Assessment and plan (1) Acute hypoxemic respiratory failure: Status: Acute Assessment and plan: secondary to pneumonia (not seen on initial CXR but seen on follow up CT chest) continue Rocephin and doxycycline, continue to improve, now on RA w/ good oxygen levels at rest (2) Pneumonia: Status: Suspected Assessment and plan: as above Qualifiers: Pneumonia type: due to unspecified organism Laterality: unspecified laterality Lung location: unspecified part of lung Qualified Code(s): J18.9 - Pneumonia, unspecified organism (3) Leukopenia: Status: Acute Assessment and plan: improving 4260 w/ improved lymphocytopenia of 1490 from low of 230; lyme antibody titer was negative but rest of Tick panel is pending (Ehrlichiosis, Babesia and Anaplasmosis), mono screen negative and FLUVID was negative. Qualifiers: Leukopenia type: lymphocytopenia Qualified Code(s): D72.810 - Lymphocytopenia (4) Thrombocytopenia: Status: Chronic Assessment and plan: improving, now at 45,000, continue to monitor, avoid enoxaparin or heparin for DVT prophylaxis (5) Elevated LFTs: Status: Acute Assessment and plan: improving (6) Left lumbar radiculopathy: Status: Acute Assessment and plan: continue tylenol, robaxin, voltaren (7) Hypokalemia: Status: Acute Assessment and plan: low again today at 3.2, continue supplementation. (8) Diabetes mellitus: Status: Chronic Assessment and plan: continue novolog sliding scale; hold metformin in light of his CTA, recheck renal function daily and resume metformin after 24h Qualifiers: Diabetes mellitus type: type 2 Diabetes mellitus [facility] insulin use: without continuous churn buttermaker use Diabetes mellitus complication status: with neurologic complications Diabetes mellitus complication detail: with polyneuropathy Qualified Code(s): E11.42 - Type 2 diabetes mellitus with diabetic polyneuropathy Subjective Subjective Interval history since last seen: Breathing is better but still w/ cough and would like a cough suppressant. he says that this cough hurts his lower back. i told him that his labs are recovering and his WBC and platelets are improving. Exam Narrative Exam Narrative: Orlando is alert, oriented sitting up in bed watching TV, no acute distress Lungs: clear Heart: RRR Abdomen: obese, soft, nontender Lower back w/out tenderness to palpation Extremities: no edema. he seems to have some better movement in his left leg, he was able to sit up in bed and swing his legs over edge of bed but still has pain w/ radiation into his left thigh Objective Last Vital Signs Temp 36.4 C L 09/24/23 11:28 Pulse 59 L 09/24/23 11:42 Resp 17 09/24/23 11:28 BP 134/66 09/24/23 11:28 Pulse Ox 93 09/24/23 11:37 Laboratory Results - last 24 hr 09/22/23 09/22/23 09/23/23 08:05 16:09 07:06 WBC RBC Hgb Hct MCV MCH MCHC RDW Plt Count MPV Immature Gran % Neutrophils % Band Neutrophils % Lymphocytes % Atypical Lymphs % Monocytes % Eosinophils % Basophils % Nucleated RBC % Absolute Neutrophils Absolute Lymphocytes Absolute Monocytes Absolute Eosinophils Absolute Basophils RBC Morphology Sodium Potassium Chloride Carbon Dioxide Anion Gap BUN Creatinine Est GFR (CKD-EPI 2020) Glucose Calcium Total Bilirubin AST ALT Alkaline Phosphatase Creatine Kinase 396 H Total Protein Albumin Procalcitonin Lyme Disease Antibody Negative Hepatitis A IgM Ab Negative Hep Bs Antigen Negative Hep B Core Total Ab Negative Hepatitis C Antibody Negative Ur Strep pneumoniae Ag Negative Add-On Test Request 09/23/23 09/24/23 15:05 06:45 WBC 4.26 L RBC 4.24 L Hgb 11.8 L Hct 36.1 L MCV 85 MCH 27.8 MCHC 32.7 RDW 13.7 Plt Count 45 L D MPV 13.0 H Immature Gran % 0.0 Neutrophils % 58.0 Band Neutrophils % 1 Lymphocytes % 23.0 Atypical Lymphs % 12 Monocytes % 6.0 Eosinophils % 0.0 Basophils % 0.0 Nucleated RBC % 0.0 Absolute Neutrophils 2.51 Absolute Lymphocytes 1.49 Absolute Monocytes 0.26 Absolute Eosinophils 0.00 Absolute Basophils 0.00 RBC Morphology Normal Sodium 138 Potassium 3.2 L Chloride 102 Carbon Dioxide 28.7 Anion Gap 7.3 BUN 23 H Creatinine 1.1 Est GFR (CKD-EPI 2020) 64.57 Glucose 167 H Calcium 8.6 Total Bilirubin 0.6 AST 57 H ALT 58 Alkaline Phosphatase 173 H Creatine Kinase Total Protein 5.9 L Albumin 2.6 L Procalcitonin 0.4 Lyme Disease Antibody Hepatitis A IgM Ab Hep Bs Antigen Hep B Core Total Ab Hepatitis C Antibody Ur Strep pneumoniae Ag Add-On Test Request DONE Time Spent with Patient Time Spent with Patient: 35-49 minutes Time was spent: preparing to see the patient(eg.review tests), ordering medications,tests, procedures, referring, communicating with other health dialysis patient care technician, indepentently interpreting results, counseling the patient and care coordination
--- NOTE | 2023-09-24 16:13 | PDOC.CMPRO ---
Date of service: 09/24/23 Time of Service: 16:14 Care Management Progress Note Progress Note Text Progress Note Text: Orlando requested life alert support; brochure for [facility] and [facility] provided; CM to offer referral to [facility] and review community based supports for Orlando's consideration. Discharge Anticipated Barriers to Discharge: None Identified Patient/Family Education Needs: Review discharge instructions, discuss Ask Me Three Transportation: Private vehicle Plan: Orlando will be evaluated by PT prior to discharge; per recommendations anticipate new orders for HH/PT. He will follow up with his PCP and plan of care as prescribed and transport via private vehicle with family. CM continues to follow. SDOH(Care Management) Screening Will the Patient Participate in the Screening?: Yes Do you worry about having a steady place to live?: no In the past 12 months, have you had to go without electric, gas, oil or water in your home?: no Have you or anyone in your house had to go without enough food to eat?: no Has lack of transportation kept you from medical appointments or from doing things needed for daily living?: no Has anyone in your support network made you feel unsafe for any reason?: no Anticipated HH Services Anticipated HH Services at Discharge [facility] Needed, PT. Anticipated Date of Discharge: 09/25/23. Following Provider: Jarrod Gorman.
[2023-09-24] MEDS: Acetaminophen 325 MG TAB PO ×2 (18:47→19:51)
[2023-09-24] MEDS: guaiFENesin/CODEINE PHOSPHATE 10 ML CUP PO (19:51)
[2023-09-24] MEDS: amLODIPine 10 MG TAB PO (19:51)
[2023-09-24] MEDS: Mupirocin 2% Oint. 22 GM TUBE TP (19:52)
[2023-09-25] VITALS (7 sets, daily range): BP systolic 122–139; BP diastolic 60–73; PULSE 58–68; RESP 3–18; TEMP 36.5–36.7; O2SAT 94–96
[2023-09-25] MEDS: guaiFENesin/CODEINE PHOSPHATE 10 ML CUP PO (06:34)
[2023-09-25 07:25] LABS: HCT 36.4 % (40.0-50.0); HGB 11.8 g/dL (13.5-17.5); MCH 27.8 pg (27.0-33.0); MCHC 32.4 % (32.0-36.0); MCV 86 fL (80-95); MPV 12.8 fL (8.0-11.0); RBC 4.25 10^6/uL (4.36-5.78); RDW-SD 43.8 fL; WBC 6.16 10^3/uL (4.4-10.8)
[2023-09-25] MEDS: Insulin Aspart 300 UNITS/3 ML PEN SC ×2 (07:44→11:52)
[2023-09-25 07:45] LABS: ALT 63 U/L (16-63); AST 50 U/L (15-37); Albumin 2.5 g/dL (3.4-5.0); Alkaline Phosphatase 158 U/L (46-116); BUN 26 mg/dL (7-18); Bilirubin, Total 0.6 mg/dL (0.2-1.0); CREATININE 1.1 mg/dL (0.70-1.30); Calcium 8.7 mg/dL (8.5-10.1); Chloride 105 mmol/L (98-107); Estimated GFR 64.57 (mL/min/1.73m2); Glucose 139 mg/dL (74-106); Potassium 3.6 mmol/L (3.5-5.1); Sodium 140 mmol/L (136-145); Total Protein 5.8 g/dL (6.4-8.2)
[2023-09-25] MEDS: Metoprolol CR 50 MG TABCR PO (07:46)
[2023-09-25] MEDS: Losartan 50 MG TAB 100 MG PO (07:46)
[2023-09-25] MEDS: Cyanocobalamin 500 MCG TAB PO (07:46)
[2023-09-25] MEDS: Metoprolol CR 100 MG TABCR PO (07:46)
[2023-09-25] MEDS: Potassium Chloride 20 MEQ TABCR PO ×3 (07:46→16:41)
[2023-09-25] MEDS: hydroCHLOROthiazide 25 MG TAB PO (07:46)
[2023-09-25] MEDS: Atorvastatin 20 MG TAB PO (07:47)
[2023-09-25] MEDS: metFORMIN 500 MG TAB 1000 MG PO ×2 (07:47→16:41)
[2023-09-25] MEDS: Normal Saline Flush 10 ML SYR IVP (07:48)
[2023-09-25] MEDS: Clotrimazole 1% 15 GM TUBE TP (07:48)
[2023-09-25] MEDS: Mupirocin 2% Oint. 22 GM TUBE TP (07:49)
[2023-09-25] MEDS: Albuterol/Ipratropium 3 ML UPD VIAL UPD ×2 (08:07→11:38)
[2023-09-25 08:37] LABS: Absolute Eosinophil Count 0.18 10^3/uL (0.0-0.7); Absolute Lymphocyte Count 2.83 10^3/uL (1.2-3.4); Absolute Monocyte Count 0.43 10^3/uL (0.1-0.8); Absolute Neutrophil Count 2.71 10^3/uL (1.2-6.7); Atypical Lymphocytes % 5 %
[2023-09-25 08:38] LABS: Diff Comment Manual Differential; RBC Morphology Normal
[2023-09-25 08:39] LABS: Platelet Count 79 10^3/uL (130-400)
[2023-09-25 09:20] LABS: B. miyamotoi PCR Negative (Negative); Babesia divergens/MO-1 Negative (Negative); Babesia duncani Negative (Negative); Babesia microti Negative (Negative); Ehrlichia chaffeensis Negative (Negative); Ehrlichia ewingii/canis Negative (Negative); Ehrlichia muris eauclairensis Negative (Negative)
[2023-09-25] MEDS: cefTRIAXone 2 GM/50 ML BAG IVPB (10:21)
--- NOTE | 2023-09-25 10:27 | PT.INTREAT ---
PT Notes Visit Reasons: Pneumonia,Leukopenia,Thrombocytopenia,Transaminiti Inpatient Physical Therapy Treatment Note [facility] Date: 09/25/23 PRECAUTIONS: SUBJECTIVE: Pt reports that his L leg is sore and weak. He states that he has difficulty getting in and out of his vehicle. OBJECTIVE: ? BED MOBILITY/TRANSFERS? Sit-stand: SBA? Stand-sit: SBA? Provided skilled cues and instruction on performance and technique throughout. Gait Training ([id number][]): Direct one-on-one instruction and skilled instruction in: ? Therapeutic Exercises (56379r[2]): Direct one-on-one instruction in therapeutic exercises to develop strength, endurance, range of motion and flexibility. ? Exercises ? Seated row x 15 Seated shoulder horz abd x 15 Seated shoulder flexion x15 Seated Shoulder circles x 15 LAQ x10 Seated marching x 20 alt Seated hip abd x 10 Ambulation ? Assistive Device: FWW? Weight bearing: Full Assist: SBA? Distance:? 2 small loops ? ASSESSMENT:? Pt tolerated today's session well. Pt did c/o discomfort in his L LE during his session. PLAN: Cont as per PT POC. TREATMENT CODE/TIME: 10-10:25 (25) TE
[2023-09-25 11:48] LABS: Anaplasma phagocytophilum Positive
[2023-09-25] MEDS: DOXYCYCLINE 100 MG in Normal Saline 100 ML IVPB (11:50)
--- NOTE | 2023-09-25 14:00 | PT.INTREAT ---
PT Notes Visit Reasons: Pneumonia,Leukopenia,Thrombocytopenia,Transaminiti Inpatient Physical Therapy Treatment Note [facility] Date: 09/25/23 PRECAUTIONS:Standard SUBJECTIVE: Pt reports his L LE is moving better this afternoon. OBJECTIVE: VITALS: ? Therapeutic Activities ([id number][]): Direct one-on-one instruction in dynamic activities to improve functional performance. ? BED MOBILITY/TRANSFERS? Sit-stand: SBA? Stand-sit: SBA ? Provided skilled cues and instruction on performance and technique throughout. Gait Training ([id number][]): Direct one-on-one instruction and skilled instruction in: ? Therapeutic Exercises ([id number][1]): Direct one-on-one instruction in therapeutic exercises to develop strength, endurance, range of motion and flexibility. ? Exercises ? Seated row x 15 Seated shoulder horz abd x 15 Seated shoulder flexion x15 Seated Shoulder circles x 15 Seated HR/TR Seated hip abd x 10 Ambulation ? Assistive Device: FWW? Weight bearing: Full Assist: SBA ? Distance:? Ambulated 3 x around small loop. ? ASSESSMENT:? Pt tolerated today's session with less discomort and better movement with the L LE. PLAN: Cont as per PT POC. TREATMENT CODE/TIME: 1:40-1:58 (18) TE
--- NOTE | 2023-09-25 15:33 | CHAPLAIN ---
Orlando was up in the chair when I visited. He told me about falling at home and not being able to get himself up so he spent from about 10 p.m. to 4 a.[address]. on the floor. He never not been able to get himself up, so that worried him. He said people are really helping me. He frustrated by his legs not working like he wants them too. Orlando is a member of the [employer] in [facility], and he's had someone contact his information clerk, Rev. Nirav Burt. Orlando identified his brother and sister in law as support.
--- NOTE | 2023-09-25 16:06 | W.PM.PROGNOT ---
Date of Service Date of service: 09/25/23 Time of Service: 16:07 Objective Last Vital Signs Temp 36.6 C 09/25/23 15:24 Pulse 64 09/25/23 15:24 Resp 17 09/25/23 15:24 BP 128/68 09/25/23 15:24 Pulse Ox 94 09/25/23 15:24 Laboratory Results - last 24 hr 09/22/23 09/25/23 08:05 05:57 WBC 6.16 RBC 4.25 L Hgb 11.8 L Hct 36.4 L MCV 86 MCH 27.8 MCHC 32.4 RDW 14.0 Plt Count 79 L D MPV 12.8 H Immature Gran % 0.0 Neutrophils % 44.0 Lymphocytes % 41.0 Atypical Lymphs % 5 Monocytes % 7.0 Eosinophils % 3.0 Basophils % 0.0 Nucleated RBC % 0.0 Absolute Neutrophils 2.71 Absolute Lymphocytes 2.83 Absolute Monocytes 0.43 Absolute Eosinophils 0.18 Absolute Basophils 0.00 RBC Morphology Normal Sodium 140 Potassium 3.6 Chloride 105 Carbon Dioxide 28.0 Anion Gap 7.0 BUN 26 H Creatinine 1.1 Est GFR (CKD-EPI 2020) 64.57 Glucose 139 H Calcium 8.7 Total Bilirubin 0.6 AST 50 H ALT 63 Alkaline Phosphatase 158 H Total Protein 5.8 L Albumin 2.5 L B. divergens/MO-1 PCR Negative Babesia duncani (PCR) Negative Babesia microti DNA PCR Negative E.chaffeensis DNA (PCR) Negative E.ewingii/canis DNA PCR Negative E.muris eauclairensis (PCR) Negative A. phagocytophilum (PCR) Positive Blood B. miyamotoi (PCR) Negative
--- NOTE | 2023-09-25 16:41 | W.PM.DS.N ---
Date of service: 09/25/23 Time of Service: 16:41 DS: Diagnosis Discharge Diagnosis (1) Acute hypoxemic respiratory failure: Status: Resolved (2) Pneumonia: Status: Ruled-out (3) Leukopenia: Status: Resolved (4) Thrombocytopenia: Status: Acute (5) Elevated LFTs: Status: Resolved (6) Left lumbar radiculopathy: Status: Chronic (7) Hypokalemia: Status: Resolved (8) Diabetes mellitus: Status: Chronic Discharge Plan Disposition Patient Disposition: Home W/Home Health Services Condition: Improving Discharge Details Reason For Visit: Pneumonia,Leukopenia,Thrombocytopenia,Transaminiti Admit Date/Time: 09/23/23 17:15 Admit Provider: Jordan Costa Attending Provider: Jordan Costa Primary Care Provider: Jarrod Gorman Hospital Course Hospital Course: 88-year-old male with history of type 2 diabetes mellitus, hypertension, chronic lower back pain, remote lumbar spinal fusion who presented to [facility] emergency department on 09/22/2023 because of generalized weakness fatigue nonproductive cough gait and balance at left leg pain. But denied any fevers or rigors. He did have a fall at home had trouble getting up and called EMS to be brought to emergency department. Evaluation in the ER included chest x-ray, CT of the head, left femur, left knee and hip x-rays. 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 CT of the head showed no acute intracranial process. Reportedly chest x-ray suggested pneumonia according to ED provider however the official reading was there was no definite acute process. Labs were remarkable for leukopenia of 1500 with an absolute lymphocytopenia of 230 and thrombocytopenia 16,000 and a mild anemia hemoglobin 12.6 g. He denies symptoms hemoptysis or hematuria. CMP was remarkable for hypokalemia 3.1 mild transaminitis with an AST of 83, ALT 70, alkaline phosphatase 160 with a normal total bilirubin 1.0. He had a negative troponin I level. Blood cultures were obtained and tick panel was drawn patient had any tick bites although he had been working with his brother in the form moving some hay under his brother's truck on the Thursday prior to admission. He was empirically started on ceftriaxone and doxycycline while we are waiting for blood cultures and tick panel. Throughout his hospital course patient never spiked a fever patient did require supplemental oxygen with nasal cannula up to 2 L/min at the time of discharge was back to room air with a normal oxygen saturation 94%. Hypokalemia was treated with oral potassium supplementation. Serial labs were monitored his transaminitis resolved his thrombocytopenia improved initially the platelet count came up to 19,000 overnight and then the following day was 45,000 and on the day of discharge was 79,000. He has leukopenia resolved and his white count on discharge was 6100 and his absolute lymphocytopenia had resolved and his lymphocytes were up to 2800. 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 Patient was weaned off oxygen. Because of his left leg pain and prior back surgery and MRI of his spine was done to r/o abscess or hematoma given his fall at home. 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 Physical therapy was consulted and worked with him and recommended home health PT upon discharge. Because of the fall he had elevated CK was mildly elevated at 377 and serial levels showed no rise in his CK level and serial monitoring of his renal function showed no kidney injury. On the day of discharge we got back his tick panel and it was negative for babesiosis or ehrlichiosis but was positive for anaplasmosis. Patient will be discharged home on a course of doxycycline 100 mg p.o. twice daily for 11 more days. Patient was given information regarding tickborne illnesses from the up-to-date series. Condition on discharge markedly improved. Patient was sitting up in his room joking with some of his classmates from [place] having no dyspnea no cough his leg pain was much better. He will be discharged home with home walker to help maintain his balance. Home Meds and New Rx's Prescriptions: New doxycycline monohydrate 100 mg capsule 100 mg PO BID 11 Days Qty: 22 0RF Continued triamcinolone acetonide 0.1 % cream 1 applic topical BID Qty: 30 2RF clotrimazole [Lotrimin AF (clotrimazole)] 1 % cream 1 applic topical .QD Qty: 30 1RF Rx Instructions: Apply to rash of lower extremities/feet, once daily. Relief Factor PO Rx Instructions: vitamin/supplement pack including; omega, curcumin, resveratol, and Icariin. 10/2021. nitroglycerin [Nitrostat] 0.4 mg tablet, sublingual 0.4 mg Sublingual PRN Qty: 25 4RF alfuzosin 10 mg tablet extended release 24 hr 10 mg PO DAILY Qty: 90 3RF Rx Instructions: administer after the same meal each day losartan-hydrochlorothiazide [Hyzaar] 100-25 mg tablet 1 tab PO DAILY Qty: 90 4RF metformin 1,000 mg tablet 1,000 mg PO BID Qty: 180 3RF amlodipine 10 mg tablet 10 mg PO HS Qty: 90 3RF atorvastatin [Lipitor] 20 mg tablet 20 mg PO DAILY Qty: 90 3RF mupirocin 2 % ointment 1 applic topical TID Qty: 15 0RF triamcinolone acetonide 15 GM ointment 1 pedro pablo Topical BID PRNQty: 3 Patient Comments: Pt. states that it has been over a year since he last used this med. garlic 1 EACH capsule 1 cap PO DAILY cranberry fruit concentrate 450 MG capsule 450 mg PO DAILY Patient Comments: hasnt used in a while cetirizine [Zyrtec] 10 mg tablet 10 mg PO DAILY PRN vitamin [id number] acid 500-400 mcg tablet 1 tab PO DAILY Qty: 90 3RF (DME) blood sugar diagnostic Strip 1 strip Miscellaneous DAILY Qty: 100 11RF Rx Instructions: DX E11.9 One time daily metoprolol succinate 100 mg tablet extended release 24 hr 100 mg PO DAILY Qty: 90 3RF metoprolol succinate 50 mg tablet extended release 24 hr 50 mg PO DAILY Qty: 90 3RF Rx Instructions: take with a 100 mg tab to equal 150 mg/day gabapentin 300 mg capsule See Rx Instructions .ROUTE .COMPLEX Qty: 60 2RF Dose Instruction: TAKE ONE CAPSULE BY MOUTH ONCE TO TWICE A DAY; MAY TAKE A SECOND DOSE IN THE MORNING NEEDED Rx Instructions: TAKE ONE CAPSULE BY MOUTH ONCE TO TWICE A DAY; MAY TAKE A SECOND DOSE IN THE MORNING NEEDED guaifenesin [Mucinex] 600 mg Tablet Extended Release 12hr 600 mg PO BID Qty: 5 0RF Osteo Bi-Flex Triple Strength 750 mg-644 mg- 30 mg-1 mg Tablet 1 tab PO DAILY acetaminophen 650 mg tablet extended release 650 mg PO Q6H PRN PRN (Reason: pain) Qty: 60 6RF ibuprofen 600 mg tablet 600 mg PO TID PRNQty: 90 3RF Discharge Instructions Instructions: Doxycycline (By mouth), Tick Bite (GEN) Additional Instructions: you were found to have a condition called Anaplasmosis, this is a tick borne illness caused by the same ticks that cause Lyme's disease. You do not have Lymes, but anaplasmosis can cause some of the same symptoms including fever, muscle pains, headache, nause and vomiting and cause lab abnormalities such as elevate liver enzymes, low platelet cell and low white blood cell counts which you exhibited. You should finish a 14 day course of doxycycline 100 mg twice a day. You had 3 days worth in the hospital and are being sent home w/ an prescription for another 11 days. Please get follow up labs in 10 days including CMP and CBC. Activity:: Activity as Tolerated Equipment/Supplies:: Walker Diet:: Carb Counting Discharge Orders Discharge Orders: Discharge Order (Routine); Ordered 09/25/23 Ordered By: Jordan Costa DS: Summary Time Spent with Patient providing and/or coordinating discharge services: Greater than 30 minutes Specific discharge activities: Interview/exam of patient; review of discharge instructions, completion of prescriptions/discharge instructions; discussion w/ nursing and CM; documentation of hospital visit Status at Discharge Functional status at discharge: uses cane/walker Overall status at discharge: patient is progressing back to baseline Mental Status: mental status grossly normal Speech and Movement: speech and movement normal Mood: congruent mood Affect: normal affect Quality:SDOH Health Related Social Needs: No Data to Display Exam Narrative Exam Narrative: Orlando is up in his his chair talking with his classmates who are in town from [place]. No acute distress alert and orient x 3 Lungs are clear Heart regular rate and rhythm Abdomen soft nontender nondistended Extremities without peripheral cyanosis or edema or rash. Psych Mental Status: mental status grossly normal Speech and Movement: speech and movement normal Mood: congruent mood Affect: normal affect DS: Data Vitals/I&O Vitals and I&O: Vital Signs Temperature 36.6 C 09/25/23 15:24 Temperature Source Tympanic 09/25/23 15:24 Pulse 64 09/25/23 15:24 Pulse Rhythm Regular 09/25/23 07:45 Pulse 76 09/22/23 14:10 Respiratory Rate 17 09/25/23 15:24 Respiratory Effort Normal, Non-Labored 09/25/23 07:45 Respiratory Depth Normal 05/31/24 07:45 Respiratory Pattern Normal 09/25/23 07:45 Blood Pressure 128/68 09/25/23 15:24 Blood Pressure Mean 81 09/22/23 14:02 Blood Pressure Position Sitting 09/22/23 07:54 Pulse Oximetry 94 09/25/23 15:24 Oxygen Delivery Method Room Air 09/25/23 15:24 Oxygen Flow Rate 0 09/25/23 15:24 Pain Level 2 09/25/23 15:24 Intake & Output 09/24/23 09/25/23 09/25/23 23:59 11:59 23:59 Intake Total 700 / 1360 160 / 260 100 / 260 Output Total 825 / 1625 1025 / 1025 Balance -125 / -265 -865 / -765 100 / -765 Weight 91 kg Intake: IV 100 / 260 160 / 260 100 / 260 Oral 600 / 1100 Output: Urine 825 / 1625 1025 / 1025 Other: Urine Color Light Tala Yellow Urine Appearance Clear Clear Urine Odor None None Stool Size Moderate Stool Characteristics Formed Voiding Methods Urinal Urinal Data Completed and Pending Labs on day of discharge: Labs from last 24 hours 09/25/23 09/22/23 05:57 08:05 WBC 6.16 RBC 4.25 L Hgb 11.8 L Hct 36.4 L MCV 86 MCH 27.8 MCHC 32.4 RDW 14.0 Plt Count 79 L D MPV 12.8 H Immature Gran % 0.0 Neutrophils % 44.0 Lymphocytes % 41.0 Atypical Lymphs % 5 Monocytes % 7.0 Eosinophils % 3.0 Basophils % 0.0 Nucleated RBC % 0.0 Absolute Neutrophils 2.71 Absolute Lymphocytes 2.83 Absolute Monocytes 0.43 Absolute Eosinophils 0.18 Absolute Basophils 0.00 RBC Morphology Normal Sodium 140 Potassium 3.6 Chloride 105 Carbon Dioxide 28.0 Anion Gap 7.0 BUN 26 H Creatinine 1.1 Est GFR (CKD-EPI 2020) 64.57 Glucose 139 H Calcium 8.7 Total Bilirubin 0.6 AST 50 H ALT 63 Alkaline Phosphatase 158 H Total Protein 5.8 L Albumin 2.5 L B. divergens/MO-1 PCR Negative Babesia duncani (PCR) Negative Babesia microti DNA PCR Negative E.chaffeensis DNA (PCR) Negative E.ewingii/canis DNA PCR Negative E.muris eauclairensis (PCR) Negative A. phagocytophilum (PCR) Positive Blood B. miyamotoi (PCR) Negative Preliminary micro results at discharge 09/22/23 11:13 Blood Culture - Preliminary Blood NO GROWTH 72 HOURS 09/22/23 11:04 Blood Culture - Preliminary Blood NO GROWTH 72 HOURS [facility] All Active Problems (Updated 09/25/23 @ 16:49 by Jordan Costa MD) Left lumbar radiculopathy (Chronic) Thrombocytopenia (Acute) Impacted cerumen of right ear (Acute) Visit for suture removal (Acute) Diabetic foot infection (Acute) Upper back pain (Acute) Impacted cerumen, left ear (Acute) Gait abnormality (Acute) Allergic rhinitis (Acute) Localized edema (Acute) Diabetic dermopathy (Acute) Back pain (Acute) Tinea pedis (Acute) Nail dystrophy (Acute) Central perforation of tympanic membrane of right ear (Acute) Sensorineural hearing loss of both ears (Acute) Bone cyst of right tibia (Acute) Pancreas cyst (Acute) GI at [facility] reported it did not appear cancerous Peripheral neuropathy (Chronic) both feet are insensate to monofilament. 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 JENSEN MASTOID INCISION I&D Fracture, Open Treatment RIGHT TIBIA External hardware ~1962 Colonoscopy - MAC 2003 Appendectomy Family History Other Mixed hearing loss, unspecified Social History Smoking/Tobacco Use Status: Former Tobacco Use Tobacco: How many years used: 20 Second Hand Exposure: No Smoking risk assessment performed?: Yes Alcohol Intake: never Drug use: Never Housing: house Current gender identity: male Do you feel safe at home: Yes Do you feel safe in your relationship?: Yes Time Spent with Patient Time Spent with Patient: <45 minutes Time was spent: preparing to see the patient(eg.review tests), ordering medications,tests, procedures, referring, communicating with other health associate director career services, indepentently interpreting results, counseling the patient and care coordination
--- NOTE | 2023-09-25 16:51 | PDOC.HHF2F ---
Home Health Referral Home Health Orders Clinical synopsis of why skilled professionals are needed: Patient developed generalized weakness malaise and left leg pain secondary to an acute case of anaplasmosis. This is lead to gait instability patient needs home health physical therapy to improve his strength his gait and his ADL performance. Home health nurse to monitor his response to his medical treatment for anaplasmosis including completion of his doxycycline treatment. Nursing to coordinate with his primary care provider any change in his medical condition or any need for follow-up labs. CBC and CMP were ordered to be done in 1 week to 10 days. Registered Nurse: Check all that apply Instruct on new or changed medication(s)/assess compliance: Ordered Physical Therapist: Check all that apply Increase strength & endurance for safe mobility at home: Ordered To design/establish home maintenance program: Ordered Fall reduction therapy program for patient with history of frequent falls: Ordered Other: Note patient sustained falls causing low back pain and left leg pain that was associated with generalized muscle weakness due to his recent infection. Home Bound Status Requires the aid of supportive device (check all that apply): Walker Describe why leaving home would require a considerable and taxing effort: Requires frequent rest periods and Safety Concerns: describe (Frequent falls due to chronic DJD of his spine as well as cute exacerbation of his back pain from fall due to weakness from his anaplasmosis infection) Encounter Date and Reason: I certify that a FTF encounter for this patient was performed on September 25, 2023 and that such encounter was related to the primary reason the patient requires home health services. The encounter was conducted in the following manner: By me as the certifying physician, [employer]AT[employer] INSPECTOR, PA or By an inpatient physician, MOTORS [employer] GENERAT[employer] INSPECTOR or PA during an inpatient stay who communicated findings to me, Certification And Authentication I certify that I composed the above information based on my clinical judgment relating to this patient's medical condition and, if applicable, clinical findings communicated to me by the NPP or inpatient physician who performed the FTF encounter. Name of Provider that will be monitoring home health services: Jarrod Gorman
--- NOTE | 2023-09-25 17:46 | PDOC.CMDIS ---
Date of service: 09/25/23 Time of Service: 17:46 LACE Index Scoring Tool Questions: Length of Stay (in days): 2 Was the patient admitted via the E.D.?: Yes Comorbidities: Diabetes w/o Complication and Chronic Pulmonary Disease E.D. Visits: 0 Answers: Total Score: 8 Risk of Readmission: Low Risk Care Management Discharge Plan Reason for Hospitalization: Pneumonia, Leukopenia, thrombocytopenia, transaminitis Discharge Plan: Orlando will discharge home with new prescription, and new orders for HH/PT, CM also completed referral for COA for life alert and options counseling. He was visiting with a half a dozen friends who had a trade school reunion today-that they brought the the hospital. They were in great spirits and happy to bring Orlando home. He will follow up with his PCP and plan of care as prescribed and transport via private vehicle with family. Patient/Family Education Needs: Review discharge instructions, discuss Ask Me Three. Services Needed at Discharge: Home Health Care Services SDOH Health Related Social Needs: No Data to Display Health related social needs: problem related to primary support group(Z63.9) Health related social needs details: Resides alone, now requiring increased support, does have good natural supports. Referrals and interventions: COA: options and life alert service: offset cost Care Management Referrals: [facility]
[2023-09-26 21:05] LABS: Mycoplasma Pneumoniae PCR Negative (Negative); Specimen source Nasopharynx
== END 2023-09-25 17:22 | disposition home health service (06) | DRG 867 ==
LOC: ER 15:14 → MS 15:19
PROVIDERS: Admitting Provider Internal Medicine; Emergency Provider Nurse Practitioner Family; PCP Family Medicine; Visit Provider Internal Medicine
DX: A79.82 Anaplasmosis [A. phagocytophilum] (principal); J18.9 Pneumonia, unspecified organism; J96.01 Acute respiratory failure with hypoxia; D72.810 Lymphocytopenia; D69.6 Thrombocytopenia, unspecified; E87.6 Hypokalemia; E11.42 Type 2 diabetes mellitus with diabetic polyneuropathy; I10 Essential (primary) hypertension; M54.16 Radiculopathy, lumbar region; R74.01 Elevation of levels of liver transaminase levels; D72.819 Decreased white blood cell count, unspecified; G89.29 Other chronic pain; Z98.1 Arthrodesis status; R53.1 Weakness; R26.89 Other abnormalities of gait and mobility; Z79.84 Long term (current) use of oral hypoglycemic drugs; H90.3 Sensorineural hearing loss, bilateral; E78.5 Hyperlipidemia, unspecified; I25.10 Atherosclerotic heart disease of native coronary artery without angina pectoris; Z95.5 Presence of coronary angioplasty implant and graft; Z96.652 Presence of left artificial knee joint; Z87.891 Personal history of nicotine dependence; R05.3 Chronic cough
CPT/HCPCS: 00123; 36410; 36415; 71275; 73552; 80053; 82550; 82805; 84145; 86704; 86709; 86803; 87040; 87340; 87449; 87637; 87798; 93005; 96361; 96365; 97110; 97162; 97530; 99285; J1650; 70450; 71046; 72148; 73501; 73564; 76700; 81003; 81015; 83605; 83735; 83880; 84132; 84484; 85025; 85379; 85610; 85730; 86308; 86618; 87581; 87899; 93010; 94640; 94667; 94668; 94760; 99222; 99232; 99238; G0378; J0696; J1815; J3480; J3490; J7620

== ENCOUNTER 2023-10-05 06:08 | Outpatient (CLI) | payer MEDICARE, SELFPAY ==
[2023-10-05 11:48] LABS: Abs Immature Grans 0.05 10^3/uL (0.0-0.06); Absolute Basophil Count 0.05 10^3/uL (0.0-0.2); Absolute Eosinophil Count 0.23 10^3/uL (0.0-0.7); Absolute Lymphocyte Count 1.69 10^3/uL (1.2-3.4); Absolute Monocyte Count 0.61 10^3/uL (0.1-0.8); Absolute Neutrophil Count 5.26 10^3/uL (1.2-6.7); Basophils % 0.6 %; Eosinophils % 2.9 %; HCT 37.3 % (40.0-50.0); HGB 11.7 g/dL (13.5-17.5); Immature Grans % 0.6 %; Lymphocytes % 21.4 %; MCH 28.1 pg (27.0-33.0); MCHC 31.4 % (32.0-36.0); MCV 90 fL (80-95); MPV 9.8 fL (8.0-11.0); Monocytes % 7.7 %; Neutrophils % 66.8 %; Platelet Count 224 10^3/uL (130-400); RBC 4.16 10^6/uL (4.36-5.78); RDW-SD 45.1 fL; WBC 7.89 10^3/uL (4.4-10.8)
[2023-10-05 12:10] LABS: ALT 35 U/L (16-63); AST 16 U/L (15-37); Albumin 3.2 g/dL (3.4-5.0); Alkaline Phosphatase 137 U/L (46-116); Anion Gap 7.4 mmol/L (3-11); BUN 24 mg/dL (7-18); Bilirubin, Total 0.6 mg/dL (0.2-1.0); CO2 29.6 mmol/L (21.0-32.0); CREATININE 1.4 mg/dL (0.70-1.30); Calcium 9.2 mg/dL (8.5-10.1); Chloride 105 mmol/L (98-107); Estimated GFR 48.34 (mL/min/1.73m2); Glucose 129 mg/dL (74-106); Potassium 4.3 mmol/L (3.5-5.1); Sodium 142 mmol/L (136-145); Total Protein 6.5 g/dL (6.4-8.2)
== END 2023-10-05 06:09 | disposition home or self-care (01) ==
LOC: LOS 06:08
PROVIDERS: Internal Medicine; PCP Family Medicine; Visit Provider Family Medicine
DX: R74.01 Elevation of levels of liver transaminase levels (principal); E87.6 Hypokalemia; D69.6 Thrombocytopenia, unspecified; D72.819 Decreased white blood cell count, unspecified
CPT/HCPCS: 36415; 80053; 85025

== ENCOUNTER 2024-02-29 01:32 | Outpatient (CLI) | payer MEDICARE, SELFPAY ==
--- NOTE | 2024-02-29 11:31 | DI.RAD_ITS ---
Exam(s) XR FOOT LT COMPLETE EXAM: XR FOOT LT COMPLETE CLINICAL HISTORY: Left gt toe pain,m79.675. TECHNIQUE: 2D digital imaging was performed of the left foot. Three images were obtained. AP, obli que and lateral views were obtained. COMPARISON: CR XR TOE LT GREAT from 06/16/2023 FINDINGS: BONES: There is a question of a lucency at the proximal and medial aspect of the distal phalanx of th e great toe. Nondisplaced fracture cannot be excluded. Please correlate clinically. (Image 1). No bony destructive lesion is seen. There is a small plantar calcaneal spur. JOINTS: No dislocation present. There are degenerative changes seen predominantly in the midfoot at t he talonavicular joint and the articulation of the navicular and the cuneiforms. There is mild narro wing of the 1st MTP joint which appears stable. SOFT TISSUE: Normal. IMPRESSION: 1. There is a lucency seen in the cortex at the proximal medial aspect of the distal phalanx of the g reat toe suspicious for nondisplaced fracture. Please correlate clinically. 2. Degenerative changes of the foot as described above. DATA REPOSITORY: RADIATION DOSE DELIVERED:
== END 2024-02-29 01:52 ==
LOC: DI 01:32
PROVIDERS: PCP Family Medicine; Visit Provider Podiatrist
DX: M79.675 Pain in left toe(s) (principal)
CPT/HCPCS: 73630

== ENCOUNTER 2024-03-29 01:10 | Outpatient (CLI) | payer MEDICARE, SELFPAY ==
--- NOTE | 2024-03-29 08:00 | DI.RAD_ITS ---
Exam(s) XR TOE LT GREAT EXAM: XR TOE LT GREAT CLINICAL HISTORY: ? healing, f/u fx,s92.425a. TECHNIQUE: 2D digital imaging was performed. Three views. COMPARISON: CR XR TOE LT GREAT from 06/16/2023 CR XR FOOT LT COMPLETE from 02/29/2024 FINDINGS: BONES: There is again a lucency at the medial aspect of the base of the distal phalanx of the great t oe. It is not optimally profiled. It may represent a fracture fragment related to the fracture sust ained in May versus acute fracture fragment from the no February examination. No bony destructi ve lesion is seen. JOINTS: No dislocation present. SOFT TISSUE: Normal. IMPRESSION: No change in acute versus old fracture at the medial base of the distal phalanx. DATA REPOSITORY: RADIATION DOSE DELIVERED:
== END 2024-03-29 01:30 ==
LOC: DI 01:10
PROVIDERS: PCP Family Medicine; Visit Provider Podiatrist
DX: S92.425D Nondisplaced fracture of distal phalanx of left great toe, subsequent encounter for fracture with routine healing (principal); X58.XXXD Exposure to other specified factors, subsequent encounter
CPT/HCPCS: 73660

== ENCOUNTER 2024-05-10 02:27 | Outpatient (CLI) | payer MEDICARE, SELFPAY ==
--- NOTE | 2024-05-10 14:37 | DI.RAD_ITS ---
Exam(s) XR TOE LT GREAT EXAM: XR TOE LT GREAT CLINICAL HISTORY: ? consolidation,nondisplaced fx lt great toe,S92.425a. TECHNIQUE: 2D digital imaging was performed. COMPARISON: CR XR TOE LT GREAT from 06/16/2023 CR XR FOOT LT COMPLETE from 02/29/2024 CR XR TOE LT GREAT from 03/29/2024 FINDINGS: BONES: There may be a round bony fragment at the medial aspect of the interphalangeal joint of the g reat toe. No definite fracture is seen on the current examination. No bony destructive lesion is se en. JOINTS: No dislocation present. There is arthrosis seen in the foot. SOFT TISSUE: Normal. IMPRESSION: No evidence of a new/acute fracture or dislocation. DATA REPOSITORY: RADIATION DOSE DELIVERED:
== END 2024-05-10 02:47 ==
LOC: DI 02:27
PROVIDERS: PCP Family Medicine; Visit Provider Podiatrist
DX: S92.425D Nondisplaced fracture of distal phalanx of left great toe, subsequent encounter for fracture with routine healing (principal); X58.XXXD Exposure to other specified factors, subsequent encounter
CPT/HCPCS: 73660

== ENCOUNTER → 2024-06-14 15:08 | Outpatient (BNVA) | payer MEDICARE, SELFPAY | PROVIDERS: PCP Family Medicine; Referring Provider Family Medicine; Visit Provider Podiatrist | DX: S92.425D Nondisplaced fracture of distal phalanx of left great toe, subsequent encounter for fracture with routine healing (principal); S90.31XD Contusion of right foot, subsequent encounter; X58.XXXD Exposure to other specified factors, subsequent encounter; L60.3 Nail dystrophy; E11.42 Type 2 diabetes mellitus with diabetic polyneuropathy; I73.89 Other specified peripheral vascular diseases; M79.675 Pain in left toe(s); I70.223 Atherosclerosis of native arteries of extremities with rest pain, bilateral legs | CPT/HCPCS: 99213 ==